=== PATIENT | female | born 1975 | race Hispanic/Latino ===

== ENCOUNTER 2018-06-29 16:08 | Inpatient (IN) | payer BC, MEDICARE ==
--- NOTE | 2018-06-29 16:55 | ED PDOC ---
Arrival/HPI - General Chief Complaint: Psychiatric Evaluation - History of Present Illness Narrative History of Present Illness (Text): 42 y/o F p/w request to be admitted psychiatrically to "get her head straight." Patient states she has been picking at herself. States takes uses crack. Denies fever, chills, chest pain, dyspnea, suicidal ideation, homicidal ideation, hallucinations. Past Medical History - Endocrine/Metabolic Hx Hyperthyroidism: Yes - Psychiatric Hx Bipolar Disorder: Yes Hx Depression: Yes Hx Post Traumatic Stress Disorder: Yes Hx Substance Use: Yes Other/Comment: OCD - Anesthesia Hx Anesthesia: Yes Hx Anesthesia Reactions: No Hx Malignant Hyperthermia: No Family/Social History Family/Social History: Unknown Family HX Smoking Status: Heavy Smoker > 10 Cigarettes Daily Hx Alcohol Use: Yes Frequency of alcohol use: Socially Hx Substance Use: Yes Substance used: crack daily Allergies/Home Meds Allergies/Adverse Reactions: Allergies No Known Allergies Allergy (Verified 06/29/18 16:27) Review of Systems - Review of Systems Constitutional: absent: Fevers Respiratory: absent: SOB Cardiovascular: absent: Chest Pain Physical Exam - Physical Exam Narrative Physical Exam (Text): Constitutional: No acute distress. Head: Atraumatic. Eyes: PERRL. ENT: Moist mucous membranes. Neck: Supple. Cardiovascular: Regular rate. Chest: No tenderness. Respiratory: Clear to auscultation bilaterally. GI: Soft. Nontender. Nondistended. Back: No CVA tenderness. Musculoskeletal: No tenderness or swelling of extremities. Skin: Excoriations/abrasions to bilateral arms and face. Laceration to L hand 2nd digit which patient states occurred yesterday, edges aligned. Neurologic: Alert, no focal deficit. Vital Signs Temp Pulse Resp BP Pulse Ox 06/29/18 16:09 98 F 87 18 109/73 98 Medical Decision Making ED Course and Treatment: Dermabond applied to laceration to reinforce already approximated edges. Labs drawn. Kaitlyn Powers accepts patient to Psychiatry. NSR 80 bpm, no ST elevations. Normal axis. CXR no acute disease. - RAD Interpretation Radiology Orders: 06/29/18 16:35 CHEST PORTABLE [RAD] Stat Disposition/Present on Arrival - Present on Arrival Any Indicators Present on Arrival: No History of DVT/PE: No History of Uncontrolled Diabetes: No Urinary Catheter: No History of Decub. Ulcer: No History Surgical Site Infection Following: None - Disposition Have Diagnosis and Disposition been Completed?: Yes Diagnosis: Bipolar disorder Disposition: HOSPITALIZED Disposition Time: 18:45 Patient Plan: Admission Condition: FAIR
[2018-06-29 17:07] LABS: ALB/GLOB RATIO 1.3 (1.1-1.8); ALBUMIN 4.1 g/dL (3.0-4.8); ALT/SGPT 28 U/L (7-56); AST/SGOT 22 U/L (14-36); BLOOD UREA NITROGEN 16 mg/dL (7-21); GFR NON-AFRICAN AMERICAN > 60
[2018-06-29 17:10] LABS: BASO # 0.07 K/mm3 (0.0-2.0); BASO % 0.6 % (0.0-3.0); EOS # 0.1 (0.0-0.7); EOS % 0.5 % (1.5-5.0); GRAN # 7.37 (1.4-6.5); HEMOGLOBIN 12.8 g/dL (12.0-16.0); LYMPH # 2.7 (1.2-3.4); LYMPH % 24.4 % (22.0-35.0); MEAN CELL VOLUME 90.6 fl (80.0-105.0); MEAN CORPUSCULAR HEMOGLOBIN 29.5 pg (25.0-35.0); MEAN CORPUSCULAR HGB CONC 32.6 g/dl (31.0-37.0); MEAN PLATELET VOLUME 8.6 fl (7.0-11.0); MONO # 0.8 (0.1-0.6); MONO % 7.5 % (1.0-6.0); RBC 4.34 10^6/uL (3.5-6.1); RED CELL DISTRIBUTION WIDTH 17.1 % (11.5-14.5)
[2018-06-29 17:25] LABS: ACETAMINOPHEN < 10.0 ug/ml (10.0-20.0); SALICYLATE < 1 mg/dL (2.0-20.0)
[2018-06-29 17:36] LABS: URINE BILIRUBIN NEGATIVE (NEGATIVE); URINE BLOOD TRACE-INTACT (NEGATIVE); URINE GLUCOSE (UA) NEGATIVE (NEGATIVE); URINE LEUKOCYTE ESTERASE NEGATIVE Leu/uL (NEGATIVE); URINE PROTEIN TRACE mg/dL (<30 mg/dL); URINE UROBILINOGEN 0.2 E.U./dL (<1 E.U./dL)
[2018-06-29 17:37] LABS: URINE APPEARANCE CLEAR (CLEAR); URINE COLOR YELLOW (YELLOW)
[2018-06-29 17:42] LABS: HCG,QUALITATIVE URINE NEGATIVE (NEGATIVE)
--- NOTE | 2018-06-29 17:54 | RAD ---
Date of service: 06/29/2018 HISTORY: psych clearance COMPARISON: No prior. FINDINGS: LUNGS: No active pulmonary disease. PLEURA: No significant pleural effusion identified, no pneumothorax apparent. CARDIOVASCULAR: No atherosclerotic calcification present Normal. OSSEOUS STRUCTURES: No significant abnormalities. VISUALIZED UPPER ABDOMEN: Normal. OTHER FINDINGS: None. IMPRESSION: No active disease.
[2018-06-29 17:56] LABS: URINE CALCIUM OXALATE CRYSTALS MOD /hpf; URINE WBC 0 - 2 /hpf (0-6)
[2018-06-29 17:59] LABS: BARBITURATES, UR NEGATIVE (NEGATIVE); PHENCYCLIDINE, UR NEGATIVE (NEGATIVE)
[2018-06-29 18:07] LABS: BENZODIAZEPINES, UR POSITIVE (NEGATIVE); OPIATES, UR POSITIVE (NEGATIVE)
--- NOTE | 2018-06-29 19:19 | CARD ---
APPROVED REPORT Date of service: 06/29/2018 EKG Measurement Heart [id number] <Conclusion> Normal sinus rhythm Normal Electrocardiogram
[2018-06-29] MEDS ORDERED: Oxycodone/Acetaminophen 10/325 mg Tab PO STA (21:36)
[2018-06-29] MEDS: Oxycodone/Acetaminophen 10/325 mg Tab PO SCH (22:22)
--- NOTE | 2018-06-30 00:21 | PCM.BM ---
<Leny Langford - Last Filed: 06/30/18 00:20> Treatment Plan Problems - Problems identified on initial assessmt Anxiety related tosubstance abuse Date Initiated: 06/29/18 Time Initiated: 20:00 Assessment reference: NA Status: Active <Rosendo Puentes - Last Filed: 06/30/18 11:44> - Diagnosis (1) Depression Status: Acute Interventions: 06/30/18 11:45 group, milieu and supportive tx * trazodone 400 mg HS for depression and insomnia * Xanax 2 mg po bid for anxiety * Ambien 10 mg HS prn insomnia * Topamax 100 mg po TID * Consider ECT treatment (2) Anxiety Status: Acute Interventions: 06/30/18 11:45 group, milieu and supportive tx * trazodone 400 mg HS for depression and insomnia * Xanax 2 mg po bid for anxiety * Ambien 10 mg HS prn insomnia * Topamax 100 mg po TID * Consider ECT treatment (3) Crack cocaine use Status: Acute Interventions: group, milieu and supportive tx trazodone 400 mg HS for depression and insomnia Xanax 2 mg po bid for anxiety Ambien 10 mg HS prn insomnia Topamax 100 mg po TID 06/30/18 11:45 <India Conley - Last Filed: 07/02/18 13:48> Family Contact Family involvement: Family/SO is involved Family contact: Patient agrees to contact <Jarad Burch - Last Filed: 07/09/18 12:40>
[2018-06-30] MEDS: Pantoprazole 40 mg EC Tab PO SCH (09:26)
[2018-06-30] MEDS: TRINTELLIX PO SCH (09:27)
[2018-06-30] MEDS: Petrolatum-Mineral Oil Oint (100gm) TOP SCH ×3 (09:34→20:53)
[2018-06-30] MEDS: Oxycodone/Acetaminophen 10/325 mg Tab PO SCH ×3 (09:42→17:51)
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
[2018-06-30] MEDS ORDERED: Potassium Chloride 20 mEq ER Tab PO ONE (18:20)
[2018-06-30] MEDS ORDERED: Oxycodone/Acetaminophen 10/325 mg Tab PO ONE (20:31)
[2018-07-01] MEDS: Petrolatum-Mineral Oil Oint (100gm) TOP SCH ×4 (02:54→21:27)
[2018-07-01 06:52] LABS: BLOOD UREA NITROGEN 14 mg/dL (7-21); CALCIUM 8.3 mg/dL (8.4-10.5); GFR NON-AFRICAN AMERICAN > 60
[2018-07-01] MEDS: Pantoprazole 40 mg EC Tab PO SCH (08:56)
[2018-07-01] MEDS: Oxycodone/Acetaminophen 10/325 mg Tab PO PRN ×3 (08:57→21:26)
[2018-07-01] MEDS: TRINTELLIX PO SCH (08:58)
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
--- NOTE | 2018-07-01 09:24 | PN ---
DATE: 07/01/2018 SUBJECTIVE: The patient is in Behavioral Care Unit, [facility] in [place] in room 513, bed one. The patient was admitted yesterday with depression and substance abuse. The patient has disability due to depression. The patient denies past history of any surgery and she has no medical history as far as hypertension or diabetes. She does have history of herpes type 2, she takes Valtrex for that. She also has some impressions of this, it is all superficial. The patient takes Topamax three times a day, and the patient is also on trazodone 400 mg at night time, 10 mg of Ambien at night time. The patient is also on Zanaflex 4 mg p.o. three times a day. The patient is also on Trintellix 20 mg daily, Xanax 2 mg p.o. twice daily at home and pantoprazole 40 mg daily. She is awake this morning. She happens to be waking up from sleep, she is tired looking. The face shows the abrasions on the nose and the cheek and the chin area. PHYSICAL EXAMINATION: VITAL SIGNS: The pulse is 67, blood pressure 100/69. HEENT: The patient's head is normocephalic. NECK: The thyroid is not enlarged clinically, the patient has been investigated for hyperthyroidism. LUNGS: Clear. HEART: Normal sinus rhythm. S1 and S2 present. ABDOMEN: Soft. Liver and spleen not palpable. CENTRAL NERVOUS SYSTEM: No focal deficit. LABORATORY DATA: The patient's CBC 11,000, the patient's differential is not showing any shift to the left. The patient's chemistry, the sodium is 139. Renal functions are normal. The patient's TSH is 1.07, it falls within range. The T4 level has been done, but those are not available. DIAGNOSTIC DATA: The EKG, the patient has normal sinus rhythm and has a normal electrocardiogram. The patient is still depressed. She has medical condition associated with depression. The patient had withdrawal from substance abuse. Her prognosis is guarded, condition is improving slowly. Makenna Martinez MD [facility] # [id number] [facility]
[2018-07-01] MEDS: Oxycodone/Acetaminophen 10/325 mg Tab PO SCH (19:23)
[2018-07-02] MEDS: Petrolatum-Mineral Oil Oint (100gm) TOP SCH ×4 (02:00→20:17)
[2018-07-02] MEDS: Oxycodone/Acetaminophen 10/325 mg Tab PO PRN ×3 (06:44→21:12)
[2018-07-02 07:54] LABS: FREE T4 0.93 ng/dL (0.78-2.19)
[2018-07-02] MEDS: Miconazole 2% Vaginal Cream(45 gm) VG SCH (10:55)
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
[2018-07-02] MEDS: TOPAMAX 100 MG PO SCH ×2 (16:11→16:37)
[2018-07-02] MEDS: Pantoprazole 40 mg EC Tab PO SCH (16:12)
[2018-07-02] MEDS: TRINTELLIX PO SCH (16:12)
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
[2018-07-02] MEDS ORDERED: TRINTELLIX 20 MG PO SCH (16:51)
[2018-07-02] MEDS: Divalproex 250 mg DR (BID formulation) PO SCH (21:08)
[2018-07-03] MEDS: Petrolatum-Mineral Oil Oint (100gm) TOP SCH ×4 (02:00→20:39)
[2018-07-03] MEDS: Oxycodone/Acetaminophen 10/325 mg Tab PO PRN ×3 (06:20→17:43)
[2018-07-03] MEDS ORDERED: [UNRECOGNIZED DRUG - OTHER] PO SCH (08:00)
[2018-07-03] MEDS ORDERED: Magnesium Hydroxide Susp 30 ml UD PO PRN (08:02)
[2018-07-03] MEDS: Pantoprazole 40 mg EC Tab PO SCH (08:07)
[2018-07-03] MEDS: Fluticasone Nasal 50 mcg/Spray NS SCH (08:08)
[2018-07-03] MEDS: Miconazole 2% Vaginal Cream(45 gm) VG SCH (08:09)
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
[2018-07-03] MEDS: Divalproex 250 mg DR (BID formulation) PO SCH (09:55)
[2018-07-03] MEDS ORDERED: Magnesium Citrate Oral SOL (300 ml) PO ONE (14:00)
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
--- NOTE | 2018-07-03 23:53 | CON ---
DATE: 07/03/2018 LOCATION: Room 519, Psychiatry. HISTORY OF PRESENT ILLNESS: This is a 42-year-old female with an apparent history of hyperthyroidism, currently on no medications at this time, presenting here with major depressive disorder and undergoing close psychiatric evaluation and management and is being referred now for endocrine evaluation and management. PAST MEDICAL HISTORY: As mentioned above, history of generalized anxiety and major depressive disorder with underlying bipolar disorder, currently on psychotropic medications at this time. She has had multiple and frequent hospital readmissions for major depressive disorder and even suicidal ideations. There is also a significant history of polysubstance abuse as noted. History of posttraumatic stress disorder and has had a very turbulent emotionally driven childhood and early adult years. History of apparent hyperthyroidism but has not been on any kind of medications for the aforementioned as noted. FAMILY HISTORY: Positive for hypertension and heart disease. SOCIAL HISTORY: Admits to polysubstance abuse with chronic alcoholism and nicotine dependence till the present time. She had previously attended AA meetings and also drug rehabilitation centers. Also recent use of crack and cocaine and even recreational marijuana use. REVIEW OF SYSTEMS: Admits to generalized body weakness with easy fatigability, tiredness and marked insomnia with disrupted sleep patterns. Admits to episodic bouts of dizziness and lightheadedness. No chest pains, palpitations or PNDs. Her oral intake has been variable with occasional dyspepsia and vague upper abdominal pains. No recent alterations of bowel and/or urinary patterns. PHYSICAL EXAMINATION GENERAL: An average built female in no apparent distress. VITAL SIGNS: Blood pressure of 140/80, pulse of 70 beats per minute and regular, temperature 98, respirations 20, height is 5 feet 6 inches, weight is 131 pounds. HEENT: Head is normocephalic. Eyes anicteric with pink conjunctivae. Funduscopy not possible at this time. Ears, nose and throat otherwise normal. NECK: Supple. Thyroid gland is normal size. No carotid bruits or cervical adenopathy. CARDIOPULMONARY: Some adynamic precordium. S1, S2 is rapid and regular. LUNGS: Clear to auscultation. ABDOMEN: Flat and soft with positive bowel sounds. EXTREMITIES: No peripheral edema. Pulses are +2 bilaterally. LABORATORY DATA: Her chemistries showed a BUN of 14, sodium 139, potassium 3.8, chloride 112, CO2 of 23, glucose 88 and creatinine 0.8. Her free T4 is 0.93 with a TSH of 1.93. ASSESSMENT: This is a 42-year-old female who remains clinically and biochemically euthyroid at this time with an apparent history of hyperthyroidism and currently on no medications at this time. She also has significant bipolar disorder with multiple admissions for generalized anxiety and major depressive disorder, currently on psychotropic medications. There is also a significant history of polysubstance abuse as mentioned above. PLAN OF MANAGEMENT: We will obtain a comprehensive thyroid hormonal profile to include a total T4 or thyroxine level together with a free T4 and TSH value. We will also add a thyroid peroxidase antibody and a thyroid stimulating immunoglobulin which will confirm and/or indicate the presence of underlying thyroid autoimmunity. At this time, there is no indication for any kind of medical therapy for either hyper or hypothyroidism considering that her TSH values are normal as noted. We will follow and advise accordingly. Ewa Weathers MD
[2018-07-04] MEDS: Petrolatum-Mineral Oil Oint (100gm) TOP SCH ×4 (03:10→23:13)
[2018-07-04] MEDS: Oxycodone/Acetaminophen 10/325 mg Tab PO PRN ×3 (07:05→19:14)
[2018-07-04 08:05] LABS: ALB/GLOB RATIO 1.2 (1.1-1.8); ALBUMIN 3.7 g/dL (3.0-4.8); ALT/SGPT 22 U/L (7-56); AST/SGOT 20 U/L (14-36); BLOOD UREA NITROGEN 19 mg/dL (7-21); CALCIUM 8.8 mg/dL (8.4-10.5); GFR NON-AFRICAN AMERICAN > 60
[2018-07-04 08:09] LABS: FREE T4 0.82 ng/dL (0.78-2.19); T4 6.9 ug/dL (5.5-11.0)
[2018-07-04] MEDS ORDERED: guaiFENesin 100 mg/5 ml Syrup UD PO PRN (08:15)
[2018-07-04] MEDS: Pantoprazole 40 mg EC Tab PO SCH (08:25)
[2018-07-04] MEDS: Fluticasone Nasal 50 mcg/Spray NS SCH (08:26)
[2018-07-04] MEDS: Miconazole 2% Vaginal Cream(45 gm) VG SCH (08:27)
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
--- NOTE | 2018-07-04 13:54 | PN ---
DATE: 07/04/2018 SUBJECTIVE: The patient is in [facility]. She is a 42-year-old white female. She is admitted with depression and she had history of substance abuse too. On admission, she was found to have some abrasions of her face, lip and the cheek area. The patient has lymph node in the submandibular area. PHYSICAL EXAMINATION: GENERAL: The patient seemed to be more alert and complains of constipation. VITAL SIGNS: The patient's pulse is 76, blood pressure 100/70 and respirations are 20. LUNGS: Clear. HEART: Normal sinus rhythm. S1 and S2, present. ABDOMEN: Soft . Liver and spleen are not palpable. CENTRAL NERVOUS SYSTEM: The patient is conscious, rational, and oriented. Cranial nerves are intact. The patient has no difficulty in ambulating. LABORATORY DATA: The patient's blood work, the CBC is within normal range. The patient's chemistry; free T4 is 0.82 and thyroxine T4 total is 6.9. TSH is 1.93. She is euthyroid at this stage on chemical studies. Renal functions and liver functions are within normal range. MEDICATIONS: The patient complains of chronic cough, we will give the patient Robitussin every 6 hours p.r.n. for cough. Continue all the medications. The patient's medicines are listed as Ambien for sleep, Desyrel for depression. The patient is on doxycycline for the infection of the face and chronic cough. The patient is on Effexor. Flonase for nasal allergy and the patient gets Milk of Magnesia for constipation and Percocet for pain, pantoprazole for reflux esophagitis and gastritis, 25 mg of atenolol that is given for blood pressure systolic over 130. We will follow up. Her condition is improving; she might be subjected to ECT treatment on Monday. In the meantime, the patient is continuing with the current management and she seemed to be improving. Makenna Martinez MD [employer]
--- NOTE | 2018-07-04 18:13 | PN ---
DATE: 07/04/2018 ENDOCRINOLOGY FOLLOWUP NOTE LOCATION: In room 519, Psychiatry. SUBJECTIVE: This is a 42-year-old female with recent admission to the psychiatric unit because of generalized anxiety and major depression and is being followed closely now also for metabolic management. She remains clinically and biochemically euthyroid at this time. The repeat chemistry showed a BUN of 19, sodium 139, potassium 4.1, chloride 109, CO2 of 25, glucose 94 and creatinine 0.8. Her thyroid levels today showed a total T4 of 6.9 mcg/dL with a TSH of 1.22 and a free T4 of 0.82 indicative of normal thyroid studies and euthyroidism. So, there is no indication at this time for any kind of thyroid pharmacotherapy patient is clinically and biochemically euthyroid as noted. We are waiting the results of the thyroid antibodies, which will confirm and/or indicate the presence of underlying thyroid autoimmunity. We will obtain serial chemistries and supplement accordingly as needed. We will follow. Ewa Weathers MD
[2018-07-05] MEDS: Petrolatum-Mineral Oil Oint (100gm) TOP SCH ×4 (05:55→20:24)
[2018-07-05] MEDS: Oxycodone/Acetaminophen 10/325 mg Tab PO PRN ×3 (06:53→22:17)
[2018-07-05] MEDS: Pantoprazole 40 mg EC Tab PO SCH (08:50)
[2018-07-05] MEDS: Fluticasone Nasal 50 mcg/Spray NS SCH (08:52)
[2018-07-05] MEDS: Miconazole 2% Vaginal Cream(45 gm) VG SCH (08:55)
--- NOTE | 2018-07-05 09:28 | PCM.PYCHPN ---
Psychiatric Progress Note - Psychiatric Progress Note Patient seen today, length of contact: 35 min Problems Identified/Issues Discussed: History of Present Illness and Precipitating Events 06/30/18: Patient is a single 42-year-old female with a psychiatric history of Depression and anxiety (PTSD, NEMO, Panic symptoms), multiple psychiatric admissions most recently 2012 in [place] s/p overdose on Xanax requiring intubation, outpatient treatment with Dr. Ammon Candelaria x16 years, compliant with medications trazodone 400 mg HS, Xanax 2 mg po bid, Ambien 10 mg HS prn, Topamax 100 mg po TID who presented to the ER on 06/29/18 requesting psychiatric stabilization s/p relapse on crack a few months ago as well as occasional MJA and alcohol use. I reviewed ER notes as well as unit staff notes and met with patient at bedside. Patient presents as tired, unkempt and malnourished with scabs in various stages of healing all on her face. Hair appears unwashed and uncombed. She is well- oriented to month, year location and circumstances. Patient has some difficulty expressing her current needs at this time though her spontaneity and fluency are not impaired. She indicates that she is "tired and needs to rest to get her thoughts in order". She made a similar comment to the ER clinician "I need to get my head straight". Patient reports a history of panic symptoms with agoraphobia, depression and NEMO symptoms. She feels that she was functioning fairly well until she relapsed on crack a few months ago. Patient has been smoking crack almost daily for the last couple of months and relapsed after 7 years of sobriety. Patient occasionally also drinks and smokes marijuana but denies excessive use. She cannot remember her last use. Patient denies any direct precipitants to her recent relapse however does acknowledge sleeping with her roommate/best friend Palomo for the first time during their 18 year friendship a few months ago. She indicates that she doesnt know where the relationship is heading. Patient feels out of control and has been picking at her face, something she only does when under the influence of crack. Patient presently denies depression or hopelessness. Overall patient appeared fatigued, disinterested and mildly bored during my questioning. Patient requires prompting for further elaboration of responses and she explains that she is tired from her drug use. Patient denies any perceptual disturbance including hallucinations or paranoia. Delusions are not elicit it during the course of our interview. Regarding her current medication regimen she feels that it has been very beneficial. Patient expresses her preference to continue with the medications prescribed by Dr. Candelaria. PSYCHIATRIC HISTORY Patient has been hospitalized numerous times since the age of 11. Her most recent admission was in [place], [place], 2012 after an overdose of Xanax in 2012 which required intubation in the ICU. Patient reports this overdose was unintentional and due to a severe panic attack. Prior to that she was hospitalized at [facility]. Patient reports an intentional suicide attempt as a teenager. She overdosed on cold medicine. She was not hospitalized. Patient has been in numerous different programs, including rehabs and AA dating back to her teens. Patient is in outpatient treatment with Dr. Ammon Candelaria x16 years in [place]. She is reportedly compliant with medications trazodone 400 mg HS, Xanax 2 mg po bid, Ambien 10 mg HS prn, Topamax 100 mg po TID SOCIAL HISTORY Born and raised in [place]. Single. Lives with her roommate/best friend "Palomo Mckinnon". Unemployed and on disability. Patient graduated with an engineering degree from [employer]. Indicates that she is 4-5 credits shy from Masters degress in Special Education. Patient has a history of polysubstance abuse with multiple rehabs and AA attendance. She has tried MJA, crack, cocaine, alcohol. She tried heroin once "not a big deal". Patient reports 7 years of sobriety prior to relapse on crack x few months ago. Infrequently uses MJA and alcohol. She also smokes tobacco daily. PROGRESS NOTE 07/05/18 I reviewed floor notes and met with patient in the dayroom today. Patient is getting better. She appears healthier, more alert and nourished. Her facial scabs are healing well. She seems a little more engaged and less ambivalent about her treatment and progress though staff note that she can been entitled and manipulative at times. Thus far she is generally tolerating medication changes on the unit. She is trying to reduce her dependency on xanax and only took 3 doses yesterday. She felt very "jittery" and "restless" as a result. Patient also feels initiation of effexor may be activating. Patient's affect remains constricted but more reactive and related. She was seen socializing in the dayroom this morning. Her grooming is also a little better. Sleep is up and down. Patient denies any perceptual disturbance including hallucinations or paranoia. Delusions were not elicited during the course of our interview. Staff notes that patient can still be labile and irritable. Nonetheless she is more visible on the unit and has been interacting in the milieu. She is looking forward to her mother and sister's visit today for Thanksgiving. Diagnostic Results: as per h/o pt was dx with bipolar disorder, at present moment mixed episode, severe no psychosis NEMO Panic Disorder with agoraphobia Crack dependency, severe MJA abuse, mild Alcohol abuse, mild r/o cluster b traits r/o contribution of SIMD Medication Change: Yes (klonopin 0.25 mg po bid ) Medical Record Reviewed: Yes Mental Status Examination - Cognitive Function Orientation: Person, Place, Situation Attention: WNL Concentration: Poor Association: WNL Fund of Knowledge: WNL - Mood Mood: Depressed ("I was feeling hopeless, but now I feel that ECT might be helpful"), Anxious - Affect Affect: Constricted (more related and reactive, less dismissive), Flat - Speech Speech: Appropriate - Formal Thought Process Formal Thought Process: No Impairment - Suicidal Ideation Suicidal Ideation: No - Homicidal Ideation Homicidal Ideation: No Goal/Treatment Plan - Goal/Treatment Plan Need for Continued Stay: Remain at risks for inpatient hospitalization, Severe depression anxiety, Discharge may exacerbated symptoms, Severe functional impairment Progress Toward Problem(s) and Goals/Treatment Plan: * group, milieu and supportive tx * Appreciate f/u by Dr. Martinez on 07/03/18 and 07/04/18~added robitussin for cough * Appreciate f/u by Dr. Weathers on 07/03/18 and 07/04/18 * trazodone 300 mg HS for depression and insomnia * Effexor 75 mg po daily for depression and anxiety * Xanax 1 mg po qid and vistaril 50 mg po q8 prn for anxiety. Added klonopin 0.25 mg po bid today to mitigate activation by effexor, patient knows this is temporary. * Ambien 10 mg HS prn insomnia * ECT treatment next week * Vitals reviewed and noted below: Selected Entries 07/04/18 07/04/18 07:39 16:00 Temperature 98.5 F Pulse Rate 76 79 Respiratory 20 Rate Blood Pressure 96/70 L 106/74 * New floor labs noted below: Laboratory Results - last 24 hr 07/04/18 07/04/18 07:25 07:25 Sodium 139 Potassium 4.1 Chloride 109 H Carbon Dioxide 25 Anion Gap 9 L BUN 19 Creatinine 0.8 Est GFR ( Amer) > 60 Est GFR (Non-Af Amer) > 60 Random Glucose 94 Calcium 8.8 Total Bilirubin 0.1 L AST 20 ALT 22 Alkaline Phosphatase 76 Total Protein 6.9 Albumin 3.7 Globulin 3.2 Albumin/Globulin Ratio 1.2 Free T4 0.82 Thyroxine (T4) 6.9 TSH 3rd Generation 1.22 Laboratory Results - last 24 hr 07/01/18 06:00 Sodium 139 Potassium 3.8 Chloride 112 H Carbon Dioxide 23 Anion Gap 8 L BUN 14 Creatinine 0.8 Est GFR ( Amer) > 60 Est GFR (Non-Af Amer) > 60 Random Glucose 88 Calcium 8.3 L ER LABS AND STUDIES Please refer to results from patient's physical exam and ROS in [facility] ER report dated 06/29/18 NSR 80 bpm, no ST elevations. Normal axis. CXR no acute disease Laboratory Tests 06/29/18 06/29/18 06/29/18 16:50 16:50 16:50 WBC 11.0 RBC 4.34 Hgb 12.8 Hct 39.3 MCV 90.6 MCH 29.5 MCHC 32.6 RDW 17.1 H Plt Count 408 MPV 8.6 Gran % 67.0 Lymph % (Auto) 24.4 Sanders % (Auto) 7.5 H Eos % (Auto) 0.5 L Baso % (Auto) 0.6 Gran # 7.37 H Lymph # (Auto) 2.7 Sanders # (Auto) 0.8 H Eos # (Auto) 0.1 Baso # (Auto) 0.07 Sodium 142 Potassium 3.4 L Chloride 109 H Carbon Dioxide 23 Anion Gap 13 BUN 16 Creatinine 0.9 Est GFR ( Amer) > 60 Est GFR (Non-Af Amer) > 60 Random Glucose 89 Calcium 9.0 Magnesium 2.1 Total Bilirubin 0.3 AST 22 ALT 28 Alkaline Phosphatase 64 Total Protein 7.4 Albumin 4.1 Globulin 3.3 Albumin/Globulin Ratio 1.3 TSH 3rd Generation Urine Color Urine Appearance Urine pH Ur Specific [place] Urine Protein Urine Glucose (UA) Urine Ketones Urine Blood Urine Nitrate Urine Bilirubin Urine Urobilinogen Ur Leukocyte Esterase Urine RBC Urine WBC Ur Epithelial Cells Calcium Oxalate Crystal Urine Other Urine HCG, Qual Salicylates < 1 L Urine Opiates Screen Urine Methadone Screen Acetaminophen < 10.0 L Ur Barbiturates Screen Ur Phencyclidine Scrn Ur Amphetamines Screen U Benzodiazepines Scrn U Oth Cocaine Metabols U Cannabinoids Screen Alcohol, Quantitative 06/29/18 06/29/18 06/29/18 16:50 17:30 17:30 WBC RBC Hgb Hct MCV MCH MCHC RDW Plt Count MPV Gran % Lymph % (Auto) Sanders % (Auto) Eos % (Auto) Baso % (Auto) Gran # Lymph # (Auto) Sanders # (Auto) Eos # (Auto) Baso # (Auto) Sodium Potassium Chloride Carbon Dioxide Anion Gap BUN Creatinine Est GFR ( Amer) Est GFR (Non-Af Amer) Random Glucose Calcium Magnesium Total Bilirubin AST ALT Alkaline Phosphatase Total Protein Albumin Globulin Albumin/Globulin Ratio TSH 3rd Generation 1.07 Urine Color Yellow Urine Appearance Clear Urine pH 6.0 Ur Specific [place] >= 1.030 Urine Protein Trace H Urine Glucose (UA) Negative Urine Ketones Negative Urine Blood Trace-intact H Urine Nitrate Negative Urine Bilirubin Negative Urine Urobilinogen 0.2 Ur Leukocyte Esterase Negative Urine RBC 2 - 5 Urine WBC 0 - 2 Ur Epithelial Cells 3 - 4 Calcium Oxalate Crystal Mod Urine Other Mucus Urine HCG, Qual Negative Salicylates Urine Opiates Screen Positive H Urine Methadone Screen Negative Acetaminophen Ur Barbiturates Screen Negative Ur Phencyclidine Scrn Negative Ur Amphetamines Screen Negative U Benzodiazepines Scrn Positive H U Oth Cocaine Metabols Positive H U Cannabinoids Screen Negative Alcohol, Quantitative < 10 Estimated Date of D/C: 07/13/18
--- NOTE | 2018-07-05 21:34 | CP.PCM.PN ---
Subjective - Date & Time of Evaluation Date of Evaluation: 07/05/18 Time of Evaluation: 08:00 - Subjective Subjective: Patient is admitted with depression, anxiety, and substance abuse problems. Objective - Vital Signs/Intake and Output Vital Signs (last 24 hours): Temp Pulse Resp BP Pulse Ox 98.0 F 82 20 91/55 L 98 07/05/18 07:14 07/05/18 16:51 07/05/18 07:14 07/05/18 16:51 06/29/18 19:03 - Medications Medications: Current Medications Acetaminophen (Tylenol 325mg Tab) 650 mg PO Q4H PRN PRN Reason: Pain, moderate (4-7) Last Admin: 07/05/18 07:26 Dose: 650 mg Alprazolam (Xanax) 1 mg PO QID PRN; Protocol PRN Reason: Anxiety Stop: 07/08/18 16:16 Last Admin: 07/05/18 20:21 Dose: 1 mg Atenolol (Tenormin) 25 mg PO BID [facility] Last Admin: 07/05/18 16:51 Dose: Not Given Clonazepam (Klonopin) 0.25 mg PO BID [facility]; Protocol Last Admin: 07/05/18 16:51 Dose: 0.25 mg Docusate Sodium (Colace) 100 mg PO BID [facility] Last Admin: 07/05/18 16:52 Dose: 100 mg Fluticasone Propionate (Flonase) 1 actuation NS DAILY [facility] Last Admin: 07/05/18 08:52 Dose: 1 applic Guaifenesin (Robitussin) 100 mg PO Q4H PRN PRN Reason: Cough Last Admin: 07/04/18 12:03 Dose: 100 mg Hydroxyzine Pamoate (Vistaril) 50 mg PO Q8 PRN; Protocol PRN Reason: Anxiety Last Admin: 07/04/18 16:48 Dose: 50 mg Magnesium Hydroxide (Milk Of Magnesia) 30 ml PO DAILY PRN PRN Reason: Constipation Last Admin: 07/03/18 09:52 Dose: 30 ml Miconazole Nitrate (Monistat 7 Vaginal Cream) 0 ea VG DAILY [facility] Last Admin: 07/05/18 08:55 Dose: Not Given Multi-Ingredient Ointment (Hydrophor Oint) 1 gm TOP Q6H [facility] Last Admin: 07/05/18 20:24 Dose: Not Given Oxycodone/Acetaminophen (Percocet 10/325 Mg Tab) 1 tab PO TID PRN PRN Reason: Pain, severe (8-10) Last Admin: 07/05/18 15:15 Dose: 1 tab Pantoprazole Sodium (Protonix Ec Tab) 40 mg PO DAILY [facility] Last Admin: 07/05/18 08:50 Dose: 40 mg Tizanidine HCl (Zanaflex) 4 mg PO TID PRN PRN Reason: Muscle spasm Last Admin: 07/05/18 13:48 Dose: 4 mg Trazodone HCl (Desyrel) 300 mg PO HS [facility] Last Admin: 07/04/18 21:04 Dose: 300 mg Venlafaxine HCl (Effexor) 75 mg PO DAILY [facility] Last Admin: 07/05/18 08:51 Dose: 75 mg Zolpidem Tartrate (Ambien) 10 mg PO HS PRN; Protocol PRN Reason: Insomnia Last Admin: 07/04/18 22:31 Dose: 10 mg - Labs Labs: 06/29/18 16:50 07/04/18 07:25 - Constitutional Appears: No Acute Distress - Head Exam Head Exam: ATRAUMATIC, NORMOCEPHALIC - Respiratory Exam Respiratory Exam: Clear to Ausculation Bilateral, NORMAL BREATHING PATTERN - Cardiovascular Exam Cardiovascular Exam: REGULAR RHYTHM, +S1, +S2 - Extremities Exam Extremities Exam: Normal Inspection Assessment and Plan - Assessment and Plan (Free Text) Assessment: Substance abuse Anxiety Depression Cough Infected skin abrasions Constipation Plan: continue colace and milk of magnesia for constipation. continue Robitussin as needed for cough TSH, and free T4 are within normal limits
[2018-07-06] MEDS: Petrolatum-Mineral Oil Oint (100gm) TOP SCH ×4 (03:44→22:50)
[2018-07-06] MEDS: Oxycodone/Acetaminophen 10/325 mg Tab PO PRN ×3 (07:07→20:11)
[2018-07-06] MEDS: Fluticasone Nasal 50 mcg/Spray NS SCH (08:59)
[2018-07-06] MEDS: Pantoprazole 40 mg EC Tab PO SCH (08:59)
[2018-07-06] MEDS: Miconazole 2% Vaginal Cream(45 gm) VG SCH (09:04)
--- NOTE | 2018-07-06 09:22 | CP.PCM.PN ---
Subjective - Date & Time of Evaluation Date of Evaluation: 07/06/18 Time of Evaluation: 08:00 - Subjective Subjective: Patient seen this morning in the behavioral care unit. She is complaining of dry crusty secretions in her nose, which she is unable to remove. Objective - Vital Signs/Intake and Output Vital Signs (last 24 hours): Temp Pulse Resp BP Pulse Ox 98.0 F 79 20 104/73 98 07/06/18 07:37 07/06/18 07:37 07/06/18 07:37 07/06/18 07:37 06/29/18 19:03 - Medications Medications: Current Medications Acetaminophen (Tylenol 325mg Tab) 650 mg PO Q4H PRN PRN Reason: Pain, moderate (4-7) Last Admin: 07/05/18 07:26 Dose: 650 mg Alprazolam (Xanax) 1 mg PO QID PRN; Protocol PRN Reason: Anxiety Stop: 07/08/18 16:16 Last Admin: 07/06/18 09:04 Dose: 1 mg Atenolol (Tenormin) 25 mg PO BID [facility] Last Admin: 07/06/18 08:59 Dose: 25 mg Clonazepam (Klonopin) 0.25 mg PO BID [facility]; Protocol Last Admin: 07/06/18 09:05 Dose: Not Given Docusate Sodium (Colace) 100 mg PO BID [facility] Last Admin: 07/06/18 09:03 Dose: 100 mg Fluticasone Propionate (Flonase) 1 actuation NS DAILY [facility] Last Admin: 07/06/18 08:59 Dose: 1 applic Guaifenesin (Robitussin) 100 mg PO Q4H PRN PRN Reason: Cough Last Admin: 07/04/18 12:03 Dose: 100 mg Hydroxyzine Pamoate (Vistaril) 50 mg PO Q8 PRN; Protocol PRN Reason: Anxiety Last Admin: 07/04/18 16:48 Dose: 50 mg Magnesium Hydroxide (Milk Of Magnesia) 30 ml PO DAILY PRN PRN Reason: Constipation Last Admin: 07/03/18 09:52 Dose: 30 ml Miconazole Nitrate (Monistat 7 Vaginal Cream) 0 ea VG DAILY [facility] Last Admin: 07/06/18 09:04 Dose: Not Given Multi-Ingredient Ointment (Hydrophor Oint) 1 gm TOP Q6H [facility] Last Admin: 07/06/18 09:05 Dose: Not Given Oxycodone/Acetaminophen (Percocet 10/325 Mg Tab) 1 tab PO TID PRN PRN Reason: Pain, severe (8-10) Last Admin: 07/06/18 07:07 Dose: 1 tab Pantoprazole Sodium (Protonix Ec Tab) 40 mg PO DAILY [facility] Last Admin: 07/06/18 08:59 Dose: 40 mg Tizanidine HCl (Zanaflex) 4 mg PO TID PRN PRN Reason: Muscle spasm Last Admin: 07/06/18 00:54 Dose: 4 mg Trazodone HCl (Desyrel) 300 mg PO HS [facility] Last Admin: 07/05/18 22:16 Dose: 300 mg Venlafaxine HCl (Effexor) 75 mg PO DAILY [facility] Last Admin: 07/06/18 08:58 Dose: 75 mg Zolpidem Tartrate (Ambien) 10 mg PO HS PRN; Protocol PRN Reason: Insomnia Last Admin: 07/05/18 23:55 Dose: 10 mg - Labs Labs: 06/29/18 16:50 07/04/18 07:25 - Constitutional Appears: No Acute Distress - Head Exam Head Exam: ATRAUMATIC, NORMOCEPHALIC - Respiratory Exam Respiratory Exam: Clear to Ausculation Bilateral, NORMAL BREATHING PATTERN - Cardiovascular Exam Cardiovascular Exam: REGULAR RHYTHM, +S1, +S2 - GI/Abdominal Exam GI & Abdominal Exam: Soft, Normal Bowel Sounds. absent: Tenderness - Extremities Exam Extremities Exam: absent: Pedal Edema Assessment and Plan - Assessment and Plan (Free Text) Assessment: Patient is seen this morning and she is complaining of dry crusty secretions in her nose which she says she is unable to remove because of her loss of septum. Will consult Dr. Luo, ENT specialist. continue Colace and Milk of magnesia as needed for constipation. Skin abrasions are much improved. Patient finished course of doxycycline for infected skin. continue behavioral care treatment as per psychiatry.
--- NOTE | 2018-07-06 09:40 | PN ---
DATE: 07/05/2018 ENDOCRINOLOGY FOLLOWUP NOTE LOCATION: In room 519, Psychiatry. SUBJECTIVE: This is a 42-year-old female with major depressive disorder and currently undergoing close psychiatric evaluation and management and is also being followed closely for metabolic management. She remained clinically and biochemically euthyroid at this time. LABORATORY DATA: Her latest chemistries showed a BUN of 19, sodium 139, potassium 4.1, chloride 109, CO2 of 25, glucose 94, and creatinine 0.8. Her thyroid study showed a T4 of 6.9 with a free T4 of 0.82 and a TSH of 1.22 indicative of normal thyroid studies and biochemical evidence of euthyroidism. ASSESSMENT AND PLAN: So at this time, there is no indication for any kind of thyroid pharmacotherapy for the patient, although she had a significant history of hyperthyroidism in the past. We will await the thyroid antibodies and present the reference lab for the thyroid stimulating immunoglobulin and thyroid peroxidase antibody, which will confirm and indicate the presence of underlying thyroid autoimmunity. We will follow. Ewa Weathers MD
--- NOTE | 2018-07-06 11:00 | PCM.PYCHPN ---
Psychiatric Progress Note - Psychiatric Progress Note Patient seen today, length of contact: 35 min Problems Identified/Issues Discussed: History of Present Illness and Precipitating Events 06/30/18: Patient is a single 42-year-old female with a psychiatric history of Depression and anxiety (PTSD, NEMO, Panic symptoms), multiple psychiatric admissions most recently 2012 in [place] s/p overdose on Xanax requiring intubation, outpatient treatment with Dr. Ammon Candelaria x16 years, compliant with medications trazodone 400 mg HS, Xanax 2 mg po bid, Ambien 10 mg HS prn, Topamax 100 mg po TID who presented to the ER on 06/29/18 requesting psychiatric stabilization s/p relapse on crack a few months ago as well as occasional MJA and alcohol use. I reviewed ER notes as well as unit staff notes and met with patient at bedside. Patient presents as tired, unkempt and malnourished with scabs in various stages of healing all on her face. Hair appears unwashed and uncombed. She is well- oriented to month, year location and circumstances. Patient has some difficulty expressing her current needs at this time though her spontaneity and fluency are not impaired. She indicates that she is "tired and needs to rest to get her thoughts in order". She made a similar comment to the ER clinician "I need to get my head straight". Patient reports a history of panic symptoms with agoraphobia, depression and NEMO symptoms. She feels that she was functioning fairly well until she relapsed on crack a few months ago. Patient has been smoking crack almost daily for the last couple of months and relapsed after 7 years of sobriety. Patient occasionally also drinks and smokes marijuana but denies excessive use. She cannot remember her last use. Patient denies any direct precipitants to her recent relapse however does acknowledge sleeping with her roommate/best friend Palomo for the first time during their 18 year friendship a few months ago. She indicates that she doesnt know where the relationship is heading. Patient feels out of control and has been picking at her face, something she only does when under the influence of crack. Patient presently denies depression or hopelessness. Overall patient appeared fatigued, disinterested and mildly bored during my questioning. Patient requires prompting for further elaboration of responses and she explains that she is tired from her drug use. Patient denies any perceptual disturbance including hallucinations or paranoia. Delusions are not elicit it during the course of our interview. Regarding her current medication regimen she feels that it has been very beneficial. Patient expresses her preference to continue with the medications prescribed by Dr. Candelaria. PSYCHIATRIC HISTORY Patient has been hospitalized numerous times since the age of 11. Her most recent admission was in [place], [place], 2012 after an overdose of Xanax in 2012 which required intubation in the ICU. Patient reports this overdose was unintentional and due to a severe panic attack. Prior to that she was hospitalized at [facility] Patient reports an intentional suicide attempt as a teenager. She overdosed on cold medicine. She was not hospitalized. Patient has been in numerous different programs, including rehabs and AA dating back to her teens. Patient is in outpatient treatment with Dr. Ammon Candelaria x16 years in [place]. She is reportedly compliant with medications trazodone 400 mg HS, Xanax 2 mg po bid, Ambien 10 mg HS prn, Topamax 100 mg po TID SOCIAL HISTORY Born and raised in [place]. Single. Lives with her roommate/best friend "Palomo Mckinnon". Unemployed and on disability. Patient graduated with an engineering degree from [employer]. Indicates that she is 4-5 credits shy from Masters degress in Special Education. Patient has a history of polysubstance abuse with multiple rehabs and AA attendance. She has tried MJA, crack, cocaine, alcohol. She tried heroin once "not a big deal". Patient reports 7 years of sobriety prior to relapse on crack x few months ago. Infrequently uses MJA and alcohol. She also smokes tobacco daily. PROGRESS NOTE 07/06/18 I reviewed floor notes and met with patient in the dayroom again today. Patient is getting better. She appears healthier, more alert and nourished. Her facial scabs are healing well. She is more engaged about her treatment and progress though staff noted that she can been entitled and manipulative at times--this behavior seems to be improving and may be related to drug withdrawal. Thus far she is generally tolerating medication changes on the unit. She is trying to reduce her dependency on xanax, sleep has been more restless lately. Patient's affect remains constricted but more reactive and related. Sometimes she smiles and jokes during our meetings. She has been socializing and observed comforting other patients. Interactions seem appropriate. Patient denies any perceptual disturbance including hallucinations or paranoia. Delusions were not elicited during the course of our interview. Staff notes that patient can still be labile and irritable. Nonetheless she is more visible on the unit and has been interacting in the milieu. Diagnostic Results: as per h/o pt was dx with bipolar disorder, at present moment mixed episode, severe no psychosis NEMO Panic Disorder with agoraphobia Crack dependency, severe MJA abuse, mild Alcohol abuse, mild r/o cluster b traits r/o contribution of SIMD Medication Change: Yes (seroquel 25 mg po hs) Medical Record Reviewed: Yes Mental Status Examination - Cognitive Function Orientation: Person, Place, Situation Attention: WNL Concentration: Poor Association: WNL Fund of Knowledge: WNL - Mood Mood: Depressed ("I was feeling hopeless, but now I feel that ECT might be helpful"), Anxious - Affect Affect: Constricted (more related and reactive, less dismissive), Flat - Speech Speech: Appropriate - Formal Thought Process Formal Thought Process: No Impairment - Suicidal Ideation Suicidal Ideation: No - Homicidal Ideation Homicidal Ideation: No Goal/Treatment Plan - Goal/Treatment Plan Need for Continued Stay: Remain at risks for inpatient hospitalization, Severe depression anxiety, Discharge may exacerbated symptoms, Severe functional impairment Progress Toward Problem(s) and Goals/Treatment Plan: * group, milieu and supportive tx * Appreciate f/u by Dr. Martinez on 07/03/18 and 07/04/18~added robitussin for cough and 07/06/18~ Patient is complaining of dry crusty secretions in her nose which she says she is unable to remove because of her loss of septum. Will consult Dr. Luo, ENT specialist. * Appreciate f/u by Dr. Weathers on 07/03/18 and 07/04/18 * trazodone 300 mg HS for depression and insomnia * Effexor 75 mg po daily for depression and anxiety * Xanax 1 mg po qid and vistaril 50 mg po q8 prn for anxiety. * Ambien 10 mg HS prn insomnia * Seroquel 25 mg po HS started on 07/06/18, off label for insomnia * ECT treatment next week * Vitals reviewed and noted below: Selected Entries 07/05/18 07/05/18 07/05/18 07:14 09:02 16:00 Temperature 98.0 F Pulse Rate 71 71 82 Respiratory 20 Rate Blood Pressure 100/64 100/64 91/55 L 07/05/18 16:51 Temperature Pulse Rate 82 Respiratory Rate Blood Pressure 91/55 L * New floor labs noted below: Laboratory Results - last 24 hr 07/04/18 07/04/18 07:25 07:25 Sodium 139 Potassium 4.1 Chloride 109 H Carbon Dioxide 25 Anion Gap 9 L BUN 19 Creatinine 0.8 Est GFR ( Amer) > 60 Est GFR (Non-Af Amer) > 60 Random Glucose 94 Calcium 8.8 Total Bilirubin 0.1 L AST 20 ALT 22 Alkaline Phosphatase 76 Total Protein 6.9 Albumin 3.7 Globulin 3.2 Albumin/Globulin Ratio 1.2 Free T4 0.82 Thyroxine (T4) 6.9 TSH 3rd Generation 1.22 Laboratory Results - last 24 hr 07/01/18 06:00 Sodium 139 Potassium 3.8 Chloride 112 H Carbon Dioxide 23 Anion Gap 8 L BUN 14 Creatinine 0.8 Est GFR ( Amer) > 60 Est GFR (Non-Af Amer) > 60 Random Glucose 88 Calcium 8.3 L ER LABS AND STUDIES Please refer to results from patient's physical exam and ROS in [facility] ER report dated 06/29/18 NSR 80 bpm, no ST elevations. Normal axis. CXR no acute disease Laboratory Tests 06/29/18 06/29/18 06/29/18 16:50 16:50 16:50 WBC 11.0 RBC 4.34 Hgb 12.8 Hct 39.3 MCV 90.6 MCH 29.5 MCHC 32.6 RDW 17.1 H Plt Count 408 MPV 8.6 Gran % 67.0 Lymph % (Auto) 24.4 Holmes % (Auto) 7.5 H Eos % (Auto) 0.5 L Baso % (Auto) 0.6 Gran # 7.37 H Lymph # (Auto) 2.7 Holmes # (Auto) 0.8 H Eos # (Auto) 0.1 Baso # (Auto) 0.07 Sodium 142 Potassium 3.4 L Chloride 109 H Carbon Dioxide 23 Anion Gap 13 BUN 16 Creatinine 0.9 Est GFR ( Amer) > 60 Est GFR (Non-Af Amer) > 60 Random Glucose 89 Calcium 9.0 Magnesium 2.1 Total Bilirubin 0.3 AST 22 ALT 28 Alkaline Phosphatase 64 Total Protein 7.4 Albumin 4.1 Globulin 3.3 Albumin/Globulin Ratio 1.3 TSH 3rd Generation Urine Color Urine Appearance Urine pH Ur Specific Fred Urine Protein Urine Glucose (UA) Urine Ketones Urine Blood Urine Nitrate Urine Bilirubin Urine Urobilinogen Ur Leukocyte Esterase Urine RBC Urine WBC Ur Epithelial Cells Calcium Oxalate Crystal Urine Other Urine HCG, Qual Salicylates < 1 L Urine Opiates Screen Urine Methadone Screen Acetaminophen < 10.0 L Ur Barbiturates Screen Ur Phencyclidine Scrn Ur Amphetamines Screen U Benzodiazepines Scrn U Oth Cocaine Metabols U Cannabinoids Screen Alcohol, Quantitative 06/29/18 06/29/18 06/29/18 16:50 17:30 17:30 WBC RBC Hgb Hct MCV MCH MCHC RDW Plt Count MPV Gran % Lymph % (Auto) Holmes % (Auto) Eos % (Auto) Baso % (Auto) Gran # Lymph # (Auto) Holmes # (Auto) Eos # (Auto) Baso # (Auto) Sodium Potassium Chloride Carbon Dioxide Anion Gap BUN Creatinine Est GFR ( Amer) Est GFR (Non-Af Amer) Random Glucose Calcium Magnesium Total Bilirubin AST ALT Alkaline Phosphatase Total Protein Albumin Globulin Albumin/Globulin Ratio TSH 3rd Generation 1.07 Urine Color Yellow Urine Appearance Clear Urine pH 6.0 Ur Specific Fred >= 1.030 Urine Protein Trace H Urine Glucose (UA) Negative Urine Ketones Negative Urine Blood Trace-intact H Urine Nitrate Negative Urine Bilirubin Negative Urine Urobilinogen 0.2 Ur Leukocyte Esterase Negative Urine RBC 2 - 5 Urine WBC 0 - 2 Ur Epithelial Cells 3 - 4 Calcium Oxalate Crystal Mod Urine Other Mucus Urine HCG, Qual Negative Salicylates Urine Opiates Screen Positive H Urine Methadone Screen Negative Acetaminophen Ur Barbiturates Screen Negative Ur Phencyclidine Scrn Negative Ur Amphetamines Screen Negative U Benzodiazepines Scrn Positive H U Oth Cocaine Metabols Positive H U Cannabinoids Screen Negative Alcohol, Quantitative < 10 Estimated Date of D/C: 07/13/18
--- NOTE | 2018-07-06 11:43 | PN ---
DATE: 07/06/2018 ENDO FOLLOWUP NOTE LOCATION: Room 519. SUBJECTIVE: This is a 42-year-old female with recent major depressive disorder and behavioral disturbances, now being followed closely in the psychiatric unit and thus also been referred for possible hyperthyroidism. She remains clinically and biochemically euthyroid at this time. Her latest thyroid study showed a T4 of 6.9 mcg/dL with a free T4 of 0.82 and a TSH of 1.22. Her chemistry showed a BUN of 19, sodium 139, potassium 4.1, chloride 109, CO2 of 25, glucose 94 and creatinine 0.8. So at this time, she remains clinically and biochemically euthyroid with possible underlying autoimmune thyroiditis. There is no indication at this time for any kind of thyroid pharmacotherapy as her thyroid studies done have remained optimal and normal at this time. We will obtain serial chemistries and supplement accordingly as needed. We will also await the results of thyroid antibodies, which will confirm and/or indicate the presence of underlying thyroid autoimmunity. We will follow with you. Ewa Weathers MD
[2018-07-07] MEDS: Petrolatum-Mineral Oil Oint (100gm) TOP SCH ×4 (04:31→21:00)
[2018-07-07] MEDS: Pantoprazole 40 mg EC Tab PO SCH (08:37)
[2018-07-07] MEDS: Oxycodone/Acetaminophen 10/325 mg Tab PO PRN ×3 (08:38→22:04)
[2018-07-07] MEDS: Miconazole 2% Vaginal Cream(45 gm) VG SCH ×2 (08:39→23:33)
[2018-07-07] MEDS: Fluticasone Nasal 50 mcg/Spray NS SCH (08:44)
--- NOTE | 2018-07-07 10:29 | PCM.PYCHPN ---
Psychiatric Progress Note - Psychiatric Progress Note Patient seen today, length of contact: 35 min Problems Identified/Issues Discussed: History of Present Illness and Precipitating Events 06/30/18: Patient is a single 42-year-old female with a psychiatric history of Depression and anxiety (PTSD, NEMO, Panic symptoms), multiple psychiatric admissions most recently 2012 in [place] s/p overdose on Xanax requiring intubation, outpatient treatment with Dr. Ammon Candelaria x16 years, compliant with medications trazodone 400 mg HS, Xanax 2 mg po bid, Ambien 10 mg HS prn, Topamax 100 mg po TID who presented to the ER on 06/29/18 requesting psychiatric stabilization s/p relapse on crack a few months ago as well as occasional MJA and alcohol use. I reviewed ER notes as well as unit staff notes and met with patient at bedside. Patient presents as tired, unkempt and malnourished with scabs in various stages of healing all on her face. Hair appears unwashed and uncombed. She is well- oriented to month, year location and circumstances. Patient has some difficulty expressing her current needs at this time though her spontaneity and fluency are not impaired. She indicates that she is "tired and needs to rest to get her thoughts in order". She made a similar comment to the ER clinician "I need to get my head straight". Patient reports a history of panic symptoms with agoraphobia, depression and NEMO symptoms. She feels that she was functioning fairly well until she relapsed on crack a few months ago. Patient has been smoking crack almost daily for the last couple of months and relapsed after 7 years of sobriety. Patient occasionally also drinks and smokes marijuana but denies excessive use. She cannot remember her last use. Patient denies any direct precipitants to her recent relapse however does acknowledge sleeping with her roommate/best friend Palomo for the first time during their 18 year friendship a few months ago. She indicates that she doesnt know where the relationship is heading. Patient feels out of control and has been picking at her face, something she only does when under the influence of crack. Patient presently denies depression or hopelessness. Overall patient appeared fatigued, disinterested and mildly bored during my questioning. Patient requires prompting for further elaboration of responses and she explains that she is tired from her drug use. Patient denies any perceptual disturbance including hallucinations or paranoia. Delusions are not elicit it during the course of our interview. Regarding her current medication regimen she feels that it has been very beneficial. Patient expresses her preference to continue with the medications prescribed by Dr. Candelaria. PSYCHIATRIC HISTORY Patient has been hospitalized numerous times since the age of 11. Her most recent admission was in [place], [place], 2012 after an overdose of Xanax in 2012 which required intubation in the ICU. Patient reports this overdose was unintentional and due to a severe panic attack. Prior to that she was hospitalized at [facility]. Patient reports an intentional suicide attempt as a teenager. She overdosed on cold medicine. She was not hospitalized. Patient has been in numerous different programs, including rehabs and AA dating back to her teens. Patient is in outpatient treatment with Dr. Ammon Candelaria x16 years in [place]. She is reportedly compliant with medications trazodone 400 mg HS, Xanax 2 mg po bid, Ambien 10 mg HS prn, Topamax 100 mg po TID SOCIAL HISTORY Born and raised in [place]. Single. Lives with her roommate/best friend "Palomo Mckinnon". Unemployed and on disability. Patient graduated with an engineering degree from [employer] [place]. Indicates that she is 4-5 credits shy from Masters degress in Special Education. Patient has a history of polysubstance abuse with multiple rehabs and AA attendance. She has tried MJA, crack, cocaine, alcohol. She tried heroin once "not a big deal". Patient reports 7 years of sobriety prior to relapse on crack x few months ago. Infrequently uses MJA and alcohol. She also smokes tobacco daily. PROGRESS NOTE 07/07/18 I reviewed floor notes and met with patient in the dayroom again today. Patient's overall alertness, reactivity and engagement are improving however anxiety and lability persist. Sleep has been up and down but better since i nitiation of seroquel last night. Staff note that patient can be intrusive and entitled on the unit but her intentions seem good. She engages with and comforts another patient who needs a lot of emotional support. Sometimes patient needs reminders about boundaries but her intent is in the right place. Overall her interactions are appropriate and not bizarre/grandiose Patient appears healthier, more alert and nourished. Her facial scabs are healing well. She is more engaged about her treatment and looking forward to trying ECT for the first time this week. She is still having a lot of difficulty tapering xanax. Patient denies any perceptual disturbance including hallucinations or paranoia. Delusions were not elicited during the course of our interviews. Diagnostic Results: as per h/o pt was dx with bipolar disorder, at present moment mixed episode, severe no psychosis NEMO Panic Disorder with agoraphobia Crack dependency, severe MJA abuse, mild Alcohol abuse, mild r/o cluster b traits r/o contribution of SIMD Medication Change: Yes (seroquel increased to 50 mg po hs) Medical Record Reviewed: Yes Mental Status Examination - Cognitive Function Orientation: Person, Place, Situation Attention: WNL Concentration: Poor Association: WNL Fund of Knowledge: WNL - Mood Mood: Depressed ("I was feeling hopeless, but now I feel that ECT might be helpful"), Anxious - Affect Affect: Constricted (more related and reactive, less dismissive), Flat - Speech Speech: Appropriate - Formal Thought Process Formal Thought Process: No Impairment - Suicidal Ideation Suicidal Ideation: No - Homicidal Ideation Homicidal Ideation: No Goal/Treatment Plan - Goal/Treatment Plan Need for Continued Stay: Remain at risks for inpatient hospitalization, Severe depression anxiety, Discharge may exacerbated symptoms, Severe functional impairment Progress Toward Problem(s) and Goals/Treatment Plan: * group, milieu and supportive tx * Appreciate f/u by Dr. Martinez * 07/03/18 and 07/04/18~added robitussin for cough * 07/06/18~ Patient is complaining of dry crusty secretions in her nose which she says she is unable to remove because of her loss of septum. Will consult Dr. Luo, ENT specialist. * Appreciate f/u by Dr. Weathers on 07/03/18, 07/04/18, 07/05/18 and 07/06/18 * ~patient is clinically and biochemically euthyroid with possible underlying autoimmune thyroiditis. No indication for thyroid pharmacology. Awaiting the results of thyroid antibodies. * trazodone 300 mg HS for depression and insomnia * Effexor 75 mg po daily for depression and anxiety * Xanax 1 mg po qid and vistaril 50 mg po q8 prn for anxiety. * Ambien 10 mg HS prn insomnia * Seroquel 25 mg po HS started on 07/06/18 and increased to 50 mg po HS, off label for insomnia * ECT treatment #1 to begin 07/09/18 * Vitals reviewed and noted below: Selected Entries 07/06/18 07:37 Temperature 98.0 F Pulse Rate 79 Respiratory 20 Rate Blood Pressure 104/73 * New floor labs noted below: Laboratory Results - last 24 hr 07/04/18 07/04/18 07:25 07:25 Sodium 139 Potassium 4.1 Chloride 109 H Carbon Dioxide 25 Anion Gap 9 L BUN 19 Creatinine 0.8 Est GFR ( Amer) > 60 Est GFR (Non-Af Amer) > 60 Random Glucose 94 Calcium 8.8 Total Bilirubin 0.1 L AST 20 ALT 22 Alkaline Phosphatase 76 Total Protein 6.9 Albumin 3.7 Globulin 3.2 Albumin/Globulin Ratio 1.2 Free T4 0.82 Thyroxine (T4) 6.9 TSH 3rd Generation 1.22 Laboratory Results - last 24 hr 07/01/18 06:00 Sodium 139 Potassium 3.8 Chloride 112 H Carbon Dioxide 23 Anion Gap 8 L BUN 14 Creatinine 0.8 Est GFR ( Amer) > 60 Est GFR (Non-Af Amer) > 60 Random Glucose 88 Calcium 8.3 L ER LABS AND STUDIES Please refer to results from patient's physical exam and ROS in [facility] ER report dated 06/29/18 NSR 80 bpm, no ST elevations. Normal axis. CXR no acute disease Laboratory Tests 06/29/18 06/29/18 06/29/18 16:50 16:50 16:50 WBC 11.0 RBC 4.34 Hgb 12.8 Hct 39.3 MCV 90.6 MCH 29.5 MCHC 32.6 RDW 17.1 H Plt Count 408 MPV 8.6 Gran % 67.0 Lymph % (Auto) 24.4 Perry % (Auto) 7.5 H Eos % (Auto) 0.5 L Baso % (Auto) 0.6 Gran # 7.37 H Lymph # (Auto) 2.7 Perry # (Auto) 0.8 H Eos # (Auto) 0.1 Baso # (Auto) 0.07 Sodium 142 Potassium 3.4 L Chloride 109 H Carbon Dioxide 23 Anion Gap 13 BUN 16 Creatinine 0.9 Est GFR ( Amer) > 60 Est GFR (Non-Af Amer) > 60 Random Glucose 89 Calcium 9.0 Magnesium 2.1 Total Bilirubin 0.3 AST 22 ALT 28 Alkaline Phosphatase 64 Total Protein 7.4 Albumin 4.1 Globulin 3.3 Albumin/Globulin Ratio 1.3 TSH 3rd Generation Urine Color Urine Appearance Urine pH Ur Specific Otto Urine Protein Urine Glucose (UA) Urine Ketones Urine Blood Urine Nitrate Urine Bilirubin Urine Urobilinogen Ur Leukocyte Esterase Urine RBC Urine WBC Ur Epithelial Cells Calcium Oxalate Crystal Urine Other Urine HCG, Qual Salicylates < 1 L Urine Opiates Screen Urine Methadone Screen Acetaminophen < 10.0 L Ur Barbiturates Screen Ur Phencyclidine Scrn Ur Amphetamines Screen U Benzodiazepines Scrn U Oth Cocaine Metabols U Cannabinoids Screen Alcohol, Quantitative 06/29/18 06/29/18 06/29/18 16:50 17:30 17:30 WBC RBC Hgb Hct MCV MCH MCHC RDW Plt Count MPV Gran % Lymph % (Auto) Perry % (Auto) Eos % (Auto) Baso % (Auto) Gran # Lymph # (Auto) Perry # (Auto) Eos # (Auto) Baso # (Auto) Sodium Potassium Chloride Carbon Dioxide Anion Gap BUN Creatinine Est GFR ( Amer) Est GFR (Non-Af Amer) Random Glucose Calcium Magnesium Total Bilirubin AST ALT Alkaline Phosphatase Total Protein Albumin Globulin Albumin/Globulin Ratio TSH 3rd Generation 1.07 Urine Color Yellow Urine Appearance Clear Urine pH 6.0 Ur Specific Otto >= 1.030 Urine Protein Trace H Urine Glucose (UA) Negative Urine Ketones Negative Urine Blood Trace-intact H Urine Nitrate Negative Urine Bilirubin Negative Urine Urobilinogen 0.2 Ur Leukocyte Esterase Negative Urine RBC 2 - 5 Urine WBC 0 - 2 Ur Epithelial Cells 3 - 4 Calcium Oxalate Crystal Mod Urine Other Mucus Urine HCG, Qual Negative Salicylates Urine Opiates Screen Positive H Urine Methadone Screen Negative Acetaminophen Ur Barbiturates Screen Negative Ur Phencyclidine Scrn Negative Ur Amphetamines Screen Negative U Benzodiazepines Scrn Positive H U Oth Cocaine Metabols Positive H U Cannabinoids Screen Negative Alcohol, Quantitative < 10 Estimated Date of D/C: 07/13/18
--- NOTE | 2018-07-07 12:14 | PN ---
DATE: 07/07/2018 LOCATION: Room 519. This is a 42-year-old female with major depressive disorder and anxiety and panic state. Currently receiving closer psychiatric evaluation and management and is also being followed closely for metabolic management. Her repeat thyroid study showed a T4 of 6.9 with a TSH of 1.22 and a free T4 of 0.82. Her latest chemistry showed a BUN of 19, sodium 139, potassium 4.1, chloride 109, CO2 of 25, glucose 94, and creatinine 0.8. So at this time, we will continue the same present psychiatric management at this time. No indication for thyroid pharmacotherapy from the endocrine view point because the patient has remained clinically and biochemically euthyroid at this time. We are waiting the results of the thyroid antibodies, which will confirm and/or indicate the presence of underlying thyroid autoimmunity. We will follow. Ewa Weathers MD
--- NOTE | 2018-07-07 19:40 | CP.PCM.PN ---
Subjective - Date & Time of Evaluation Date of Evaluation: 07/07/18 Time of Evaluation: 08:00 - Subjective Subjective: Patient was complaining of constipation yesterday and received a fleets enema. Objective - Vital Signs/Intake and Output Vital Signs (last 24 hours): Temp Pulse Resp BP Pulse Ox 98.3 F 74 18 106/74 98 07/07/18 07:00 07/07/18 16:00 07/07/18 07:00 07/07/18 16:00 06/29/18 19:03 - Medications Medications: Current Medications Acetaminophen (Tylenol 325mg Tab) 650 mg PO Q4H PRN PRN Reason: Pain, moderate (4-7) Last Admin: 07/05/18 07:26 Dose: 650 mg Alprazolam (Xanax) 1 mg PO QID PRN; Protocol PRN Reason: Anxiety Stop: 07/08/18 16:16 Last Admin: 07/07/18 16:24 Dose: 1 mg Atenolol (Tenormin) 25 mg PO BID [facility] Last Admin: 07/07/18 15:01 Dose: Not Given Docusate Sodium (Colace) 100 mg PO BID [facility] Last Admin: 07/07/18 15:05 Dose: 100 mg Fluticasone Propionate (Flonase) 1 actuation NS DAILY [facility] Last Admin: 07/07/18 08:44 Dose: Not Given Guaifenesin (Robitussin) 100 mg PO Q4H PRN PRN Reason: Cough Last Admin: 07/04/18 12:03 Dose: 100 mg Hydroxyzine Pamoate (Vistaril) 50 mg PO Q8 PRN; Protocol PRN Reason: Anxiety Last Admin: 07/07/18 12:10 Dose: 50 mg Magnesium Hydroxide (Milk Of Magnesia) 30 ml PO DAILY PRN PRN Reason: Constipation Last Admin: 07/03/18 09:52 Dose: 30 ml Miconazole Nitrate (Monistat 7 Vaginal Cream) 0 ea VG DAILY [facility] Last Admin: 07/07/18 08:39 Dose: Not Given Multi-Ingredient Ointment (Hydrophor Oint) 1 gm TOP Q6H [facility] Last Admin: 07/07/18 15:01 Dose: Not Given Oxycodone/Acetaminophen (Percocet 10/325 Mg Tab) 1 tab PO TID PRN PRN Reason: Pain, severe (8-10) Last Admin: 07/07/18 15:05 Dose: 1 tab Pantoprazole Sodium (Protonix Ec Tab) 40 mg PO DAILY [facility] Last Admin: 07/07/18 08:37 Dose: 40 mg Quetiapine Fumarate (Seroquel) 50 mg PO HS [facility]; Protocol Sodium Phosphate (Fleet Enema) 135 ml RC Q8H PRN PRN Reason: Constipation Last Admin: 07/06/18 10:19 Dose: 135 ml Tizanidine HCl (Zanaflex) 4 mg PO TID PRN PRN Reason: Muscle spasm Last Admin: 07/07/18 15:05 Dose: 4 mg Trazodone HCl (Desyrel) 300 mg PO HS [facility] Last Admin: 07/06/18 21:06 Dose: 300 mg Venlafaxine HCl (Effexor) 75 mg PO DAILY [facility] Last Admin: 07/07/18 08:37 Dose: 75 mg Zolpidem Tartrate (Ambien) 10 mg PO HS PRN; Protocol PRN Reason: Insomnia Last Admin: 07/06/18 23:27 Dose: 10 mg - Labs Labs: 06/29/18 16:50 07/04/18 07:25 - Constitutional Appears: No Acute Distress - Head Exam Head Exam: ATRAUMATIC, NORMOCEPHALIC - Respiratory Exam Respiratory Exam: Clear to Ausculation Bilateral, NORMAL BREATHING PATTERN - Cardiovascular Exam Cardiovascular Exam: REGULAR RHYTHM, +S1, +S2 - GI/Abdominal Exam GI & Abdominal Exam: Soft, Normal Bowel Sounds. absent: Tenderness - Extremities Exam Extremities Exam: Normal Inspection - Neurological Exam Neurological Exam: Alert, Awake, Oriented x3 Assessment and Plan - Assessment and Plan (Free Text) Assessment: Patient is to have ECT on Monday. Will check CBC, chemistry in AM. continue colace, milk of magnesia and fleets enema as needed for constipation continue behavioral treatment as per psychiatry
[2018-07-08] MEDS: Petrolatum-Mineral Oil Oint (100gm) TOP SCH ×4 (02:34→21:38)
[2018-07-08 08:34] LABS: BASO # 0.03 K/mm3 (0.0-2.0); BASO % 0.4 % (0.0-3.0); EOS # 0.2 (0.0-0.7); GRAN # 3.77 (1.4-6.5); GRAN % 47.1 % (50.0-68.0); HEMOGLOBIN 11.2 g/dL (12.0-16.0); LYMPH # 3.3 (1.2-3.4); LYMPH % 41.4 % (22.0-35.0); MEAN CELL VOLUME 91.3 fl (80.0-105.0); MEAN CORPUSCULAR HEMOGLOBIN 28.7 pg (25.0-35.0); MEAN CORPUSCULAR HGB CONC 31.5 g/dl (31.0-37.0); MEAN PLATELET VOLUME 8.7 fl (7.0-11.0); MONO # 0.7 (0.1-0.6); MONO % 9.1 % (1.0-6.0); RBC 3.9 10^6/uL (3.5-6.1); RED CELL DISTRIBUTION WIDTH 17.1 % (11.5-14.5)
[2018-07-08 08:49] LABS: ALB/GLOB RATIO 1.2 (1.1-1.8); ALBUMIN 3.5 g/dL (3.0-4.8); ALT/SGPT 28 U/L (7-56); AST/SGOT 26 U/L (14-36); BLOOD UREA NITROGEN 18 mg/dL (7-21); CALCIUM 8.5 mg/dL (8.4-10.5); GFR NON-AFRICAN AMERICAN > 60
[2018-07-08] MEDS: Pantoprazole 40 mg EC Tab PO SCH (09:15)
[2018-07-08] MEDS: Oxycodone/Acetaminophen 10/325 mg Tab PO PRN ×3 (09:16→20:34)
--- NOTE | 2018-07-08 09:17 | PN ---
DATE: 07/08/2018 SUBJECTIVE: The patient is in [facility], Behavioral Care Unit. She is admitted with depression. She has history of substance abuse and trauma to the nose. She stated that she has the nasal septum removed, secondary to trauma. The patient has gastritis, reflux. The patient also has anxiety. The patient is seen in the room this morning. She is lying down. She had no special complaints. She is waiting for ECT tomorrow. PHYSICAL EXAMINATION: VITAL SIGNS: Her vital signs today, the patient's pulse is 65, blood pressure 100/60, respirations are 18 and O2 sat is 98% on room air. HEENT: The patient's head is normocephalic. The face, there is abrasion in the area of the face below the lip on the right side. The other abrasions have been healed. NECK: The patient's neck, the thyroid is not enlarged, no glands in the neck except there are some glands in the submandibular area secondary to the abrasion in the face. LUNGS: The patient's lungs are clear. HEART: Normal sinus rhythm. ABDOMEN: Soft. Liver and spleen not palpable. No tenderness, no masses. CENTRAL NERVOUS SYSTEM: No focal deficit. LABORATORY DATA: The patient's blood work was done on 06/29, they are within normal range. The patient is pending ECT as mentioned. We will follow up. Makenna Martinez MD [facility]
[2018-07-08] MEDS: Miconazole 2% Vaginal Cream(45 gm) VG SCH (09:22)
[2018-07-08] MEDS: Fluticasone Nasal 50 mcg/Spray NS SCH ×2 (09:24→11:48)
--- NOTE | 2018-07-08 11:16 | PCM.PYCHPN ---
Psychiatric Progress Note - Psychiatric Progress Note Patient seen today, length of contact: 35 min Patient Chief Complaint: "I cannot stand this unit, I am manic, my mind is racing, at the same time I feel groggy on increased dose of seroquel, my only hope is ECT tomorrow, everybody asking me if I am scared, but I am not, I am hopeful..." Problems Identified/Issues Discussed: Suicide/ homicide prevention, past psychiatric h/o, current psychiatric symptoms, medical problems, risk/benefits and alternatives of medications, medications compliance, coping strategies, substance abuse h/o, relapse prevention, importance of follow up with psychiatrist and therapist, discharge plan. Medical Problems: see HPI Diagnostic Results: 06/29/18 16:50 07/01/18 06:00 Lab Results 07/02/18 06:40: Free T4 0.93, TSH 3rd Generation 1.93 07/01/18 06:00: Sodium 139, Potassium 3.8, Chloride 112 H, Carbon Dioxide 23, Anion Gap 8 L, BUN 14, Creatinine 0.8, Est GFR ( Amer) > 60, Est GFR (Non-Af Amer) > 60, Random Glucose 88, Calcium 8.3 L 06/29/18 17:30: Urine Color Yellow, Urine Appearance Clear, Urine pH 6.0, Ur Specific [place] >= 1.030, Urine Protein Trace H, Urine Glucose (UA) Negative, Urine Ketones Negative, Urine Blood Trace-intact H, Urine Nitrate Negative, Urine Bilirubin Negative, Urine Urobilinogen 0.2, Ur Leukocyte Esterase Negative, Urine RBC 2 - 5, Urine WBC 0 - 2, Ur Epithelial Cells 3 - 4, Calcium Oxalate Crystal Mod, Urine Other Mucus, Urine HCG, Qual Negative 06/29/18 17:30: Urine Opiates Screen Positive H, Urine Methadone Screen Negative, Ur Barbiturates Screen Negative, Ur Phencyclidine Scrn Negative, Ur Amphetamines Screen Negative, U Benzodiazepines Scrn Positive H, U Oth Cocaine Metabols Positive H, U Cannabinoids Screen Negative 06/29/18 16:50: TSH 3rd Generation 1.07, Alcohol, Quantitative < 10 06/29/18 16:50: Salicylates < 1 L, Acetaminophen < 10.0 L 06/29/18 16:50: Sodium 142, Potassium 3.4 L, Chloride 109 H, Carbon Dioxide 23, Anion Gap 13, BUN 16, Creatinine 0.9, Est GFR ( Amer) > 60, Est GFR (Non- Af Amer) > 60, Random Glucose 89, Calcium 9.0, Magnesium 2.1, Total Bilirubin 0.3, AST 22, ALT 28, Alkaline Phosphatase 64, Total Protein 7.4, Albumin 4.1, Globulin 3.3, Albumin/Globulin Ratio 1.3 06/29/18 16:50: WBC 11.0, RBC 4.34, Hgb 12.8, Hct 39.3, MCV 90.6, MCH 29.5, MCHC 32.6, RDW 17.1 H, Plt Count 408, MPV 8.6, Gran % 67.0, Lymph % (Auto) 24.4, [place] % (Auto) 7.5 H, Eos % (Auto) 0.5 L, Baso % (Auto) 0.6, Gran # 7.37 H, Lymph # (Auto) 2.7, [place] # (Auto) 0.8 H, Eos # (Auto) 0.1, Baso # (Auto) 0.07 Vital Signs Temp Pulse Resp BP Pulse Ox 07/02/18 08:54 121/84 07/02/18 07:27 97.4 F L 85 20 121/84 07/01/18 16:19 120/70 07/01/18 07:38 98.1 F 67 20 100/69 06/30/18 15:36 83 122/86 06/30/18 06:42 98.7 F 83 18 106/70 06/29/18 22:45 18 06/29/18 20:00 97.9 F 81 18 129/91 H 06/29/18 19:03 98.1 F 86 18 98 06/29/18 18:45 98.1 F 86 18 110/83 98 06/29/18 16:09 98 F 87 18 109/73 98 Laboratory Results - last 24 hr 07/08/18 07/08/18 08:15 08:15 WBC 8.0 D RBC 3.90 Hgb 11.2 L Hct 35.6 L MCV 91.3 MCH 28.7 MCHC 31.5 RDW 17.1 H Plt Count 294 MPV 8.7 Gran % 47.1 L Lymph % (Auto) 41.4 H [place] % (Auto) 9.1 H Eos % (Auto) 2.0 Baso % (Auto) 0.4 Gran # 3.77 Lymph # (Auto) 3.3 [place] # (Auto) 0.7 H Eos # (Auto) 0.2 Baso # (Auto) 0.03 Sodium 138 Potassium 4.4 Chloride 106 Carbon Dioxide 29 Anion Gap 9 L BUN 18 Creatinine 0.7 Est GFR ( Amer) > 60 Est GFR (Non-Af Amer) > 60 Random Glucose 87 Calcium 8.5 Total Bilirubin < 0.1 L AST 26 ALT 28 Alkaline Phosphatase 80 Total Protein 6.6 Albumin 3.5 Globulin 3.0 Albumin/Globulin Ratio 1.2 Temp Pulse Resp BP Pulse Ox 98.1 F 65 18 95/60 L 98 07/08/18 07:12 07/08/18 07:12 07/08/18 07:12 07/08/18 07:12 06/29/18 19:03 DSM 5 Symptoms Update: ppatient was seen and examined today in her room, patient presented with labile affect, patient was crying, then smiling than express angry feelings towards the situation. Patient was jumping from one subject to another obviously patient is an manic stage, patient reported that she slept through the night but at the same time she feels "groggy", patient asked Seroquel to be decreased to 25 mg at the nighttime and trazodone to be increased to the previous dose of 400 mg. Patient reported that she she is "hopeful" for ECT treatment tomorrow. aas per Dr. Mckinley and as per staff patient can be intrusive and entitled on the unit but her intentions seem good. She engages with and comforts another patient who needs a lot of emotional support. Sometimes patient needs reminders about boundaries but her intent is in the right place. Overall her interactions are appropriate and not bizarre/grandiose Patient appears healthier to compare with the time of admission, more alert and nourished. Her facial scabs are healing well. pt tolerated meds well, no side effects observed or reported, AIMS 0, no EPS. pt is aware of NPO over night and ECT procedure at am. Diagnostic Results: as per h/o pt was dx with bipolar disorder, at present moment mixed episode, severe no psychosis NEMO Panic Disorder with agoraphobia Crack dependency, severe MJA abuse, mild Alcohol abuse, mild r/o cluster b traits r/o contribution of SIMD Medication Change: Yes (seroquel decreased, trazodone increased) Medical Record Reviewed: Yes Consults ordered or reviewed: medical consult appreciated Endocrinology consult Mental Status Examination - Cognitive Function Orientation: Person, Place, Situation Attention: WNL Concentration: Poor Association: WNL Fund of Knowledge: WNL - Mood Mood: Depressed ("I was feeling hopeless, but now I feel that ECT might be helpful"), Anxious - Affect Affect: Constricted (more related and reactive, less dismissive), Flat - Speech Speech: Appropriate - Formal Thought Process Formal Thought Process: No Impairment - Suicidal Ideation Suicidal Ideation: No - Homicidal Ideation Homicidal Ideation: No Goal/Treatment Plan - Goal/Treatment Plan Need for Continued Stay: Remain at risks for inpatient hospitalization, Severe depression anxiety, Discharge may exacerbated symptoms, Severe functional impairment Progress Toward Problem(s) and Goals/Treatment Plan: group, milieu and supportive tx medical consult appreciated endocrinology consult appreciated Doxycycline for scabs on face family meeting appreciated with mother 07/03/18 trazodone 400 mg HS for depression and insomnia effexor 75mg daily for depression and anxiety seroquel 25mg po hs for mood stabilization Xanax 1 mg po qid for anxiety was advised to take if absolutely needed Ambien 10 mg HS prn insomnia, will hold prior ECT Topamax was weaned off ECT treatment discussed, will start on 07/09/18 vistaril as needed / consultation for discharge plan and social issues Family involvement Follow up on labs Will monitor closely Pt was educated about risk/benefits and alternatives of medications, coping strategies (safety plan, suicide prevention), relapse prevention, importance of follow up with psychiatrist and therapist, stay away from drugs/alcohol/smoking Estimated Date of D/C: 07/13/18
--- NOTE | 2018-07-08 16:44 | PN ---
DATE: 07/08/2018 ENDOCRINOLOGY FOLLOWUP NOTE LOCATION: In room 519. SUBJECTIVE: This is a 42-year-old female with recent admission for generalized anxiety and major depressive disorder, currently being followed closely in psychiatric unit and has also been referred for metabolic evaluation of known history of hyperthyroidism. She remains clinically and biochemically euthyroid at this time and has been off medications as noted. LABORATORY DATA: Her latest chemistry showed a BUN of 18, sodium 138, potassium 4.4, chloride 106, CO2 of 29, glucose 87, and creatinine 0.7. Her latest thyroid studies showed a TSH of 1.22 with a T4 of 6.9 and a free T4 of 0.82. ASSESSMENT AND PLAN: So at this time, we will continue the present medical and psychiatric management, but hold off the resumption of her thyroid pharmacotherapy as she remains biochemically euthyroid at this time. We will follow. Ewa Weathers MD
[2018-07-09] MEDS: Petrolatum-Mineral Oil Oint (100gm) TOP SCH ×4 (03:09→20:55)
--- NOTE | 2018-07-09 08:05 | CP.PCM.PN ---
Subjective - Date & Time of Evaluation Date of Evaluation: 07/09/18 Time of Evaluation: 07:45 - Subjective Subjective: Patient is seen this morning. She is to have ECT today and she is feeling anxious. Objective - Vital Signs/Intake and Output Vital Signs (last 24 hours): Temp Pulse Resp BP Pulse Ox 98.1 F 65 18 97/62 L 98 07/08/18 07:12 07/08/18 16:00 07/08/18 07:12 07/08/18 16:00 06/29/18 19:03 - Medications Medications: Current Medications Acetaminophen (Tylenol 325mg Tab) 650 mg PO Q4H PRN PRN Reason: Pain, moderate (4-7) Last Admin: 07/05/18 07:26 Dose: 650 mg Alprazolam (Xanax) 1 mg PO QID PRN; Protocol PRN Reason: Anxiety Last Admin: 07/08/18 18:27 Dose: 1 mg Atenolol (Tenormin) 25 mg PO BID [facility] Last Admin: 07/08/18 16:45 Dose: Not Given Docusate Sodium (Colace) 100 mg PO BID [facility] Last Admin: 07/08/18 17:03 Dose: 100 mg Fluticasone Propionate (Flonase) 1 actuation NS DAILY [facility] Last Admin: 07/08/18 11:48 Dose: 1 applic Guaifenesin (Robitussin) 100 mg PO Q4H PRN PRN Reason: Cough Last Admin: 07/04/18 12:03 Dose: 100 mg Hydroxyzine Pamoate (Vistaril) 50 mg PO Q8 PRN; Protocol PRN Reason: Anxiety Last Admin: 07/07/18 19:40 Dose: 50 mg Magnesium Hydroxide (Milk Of Magnesia) 30 ml PO DAILY PRN PRN Reason: Constipation Last Admin: 07/03/18 09:52 Dose: 30 ml Miconazole Nitrate (Monistat 7 Vaginal Cream) 0 ea VG DAILY [facility] Last Admin: 07/08/18 09:22 Dose: Not Given Multi-Ingredient Ointment (Hydrophor Oint) 1 gm TOP Q6H [facility] Last Admin: 07/09/18 03:09 Dose: Not Given Oxycodone/Acetaminophen (Percocet 10/325 Mg Tab) 1 tab PO TID PRN PRN Reason: Pain, severe (8-10) Last Admin: 07/08/18 20:34 Dose: 1 tab Pantoprazole Sodium (Protonix Ec Tab) 40 mg PO DAILY [facility] Last Admin: 07/08/18 09:15 Dose: 40 mg Quetiapine Fumarate (Seroquel) 25 mg PO HS [facility]; Protocol Last Admin: 07/08/18 21:47 Dose: 25 mg Sodium Phosphate (Fleet Enema) 135 ml RC Q8H PRN PRN Reason: Constipation Last Admin: 07/06/18 10:19 Dose: 135 ml Tizanidine HCl (Zanaflex) 4 mg PO TID PRN PRN Reason: Muscle spasm Last Admin: 07/08/18 21:41 Dose: 4 mg Trazodone HCl (Desyrel) 400 mg PO HS [facility] Last Admin: 07/08/18 21:45 Dose: 400 mg Venlafaxine HCl (Effexor) 75 mg PO DAILY [facility] Last Admin: 07/08/18 09:15 Dose: 75 mg Zolpidem Tartrate (Ambien) 10 mg PO HS [facility]; Protocol PRN Reason: Insomnia Last Admin: 07/08/18 00:39 Dose: 10 mg - Labs Labs: 07/08/18 08:15 07/08/18 08:15 - Constitutional Appears: No Acute Distress - Head Exam Head Exam: ATRAUMATIC, NORMOCEPHALIC - Respiratory Exam Respiratory Exam: Clear to Ausculation Bilateral, NORMAL BREATHING PATTERN - Cardiovascular Exam Cardiovascular Exam: REGULAR RHYTHM, +S1, +S2 - GI/Abdominal Exam GI & Abdominal Exam: Soft, Normal Bowel Sounds. absent: Tenderness - Extremities Exam Extremities Exam: Normal Inspection - Neurological Exam Neurological Exam: Alert, Awake, Oriented x3 Assessment and Plan - Assessment and Plan (Free Text) Assessment: Depression Bipolar H/O back pain Loss of nasal septum Plan: Patient is feeling anxious over having ECT today. Labwork done yesterday is reviewed and within normal limits. continue behavioral treatment as per psychiatry. continue Colace and milk of magnesia for constipation. Fleets enema as needed for constipation.
[2018-07-09] MEDS ORDERED: Propofol 10 mg/ml Inj (20 ML) ONE (09:10)
[2018-07-09] MEDS ORDERED: HYDROmorphone 0.5 mg/0.5 ml ISec IVP ONE (09:34)
[2018-07-09] MEDS ORDERED: HYDROmorphone 0.5 mg/0.5 ml ISec IM STA (09:52)
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
[2018-07-09] MEDS: Pantoprazole 40 mg EC Tab PO SCH (11:28)
[2018-07-09] MEDS: Fluticasone Nasal 50 mcg/Spray NS SCH (11:31)
[2018-07-09] MEDS: Miconazole 2% Vaginal Cream(45 gm) VG SCH (11:32)
[2018-07-09] MEDS: Oxycodone/Acetaminophen 10/325 mg Tab PO PRN ×2 (13:32→20:29)
--- NOTE | 2018-07-09 16:48 | PCM.ECT ---
Electroconvulsive Therapy Note - Procedure: ECT Court Ordered: No Current treatment number: 1 - Assessment/Plan Medication Plan: methohexital Comment: pt's diagnosis is bipolar disorder, treatment resistant pt had BL treatment 0.3ms, 20Hz, 8s, 76.8 mC, pt did not have adequate seizures, pt is currently on small dose of xanax it might be related to that pt had second ECT at 0.3ms, 25Hz, 8s, 96.0 mC, pt did have adequate seizures for 20 cek, tolerated well pt then was seen in the unit pt did not have any side effects no confusion, no memory issues - Treatment Parameters Setting: Bilateral Charge amp (in %): 150 Pulse width (in msec): 96 Frequency (in Hz): 25 Peripheral seizure duration (in sec): 20
--- NOTE | 2018-07-09 20:26 | PN ---
DATE: 07/09/2018 ENDOCRINOLOGY FOLLOWUP NOTE LOCATION: Room 519, Psychiatry. SUBJECTIVE: This is a 42-year-old female with recent admission for generalized anxiety and depression and is being followed closely in the psychiatric unit and is also being referred for endocrine evaluation of prior history of hyperthyroidism. She remains clinically and biochemically euthyroid at this time and the latest TSH is 1.22 with a total T4 or thyroxine of 6.9 and a free T4 of 0.82. LABORATORY DATA: Her latest chemistry showed a BUN of 18, sodium 138, potassium 4.4, chloride 106, CO2 of 29, glucose 87 and creatinine 0.7. ASSESSMENT AND PLAN: So at this time, we will hold off any kind of thyroid pharmacotherapy as she remains biochemically euthyroid at this time. We are awaiting the results of the thyroid antibodies, which will confirm and/or indicate the presence of underlying thyroid autoimmunity. We will follow. Ewa Weathers MD
[2018-07-10] MEDS: Petrolatum-Mineral Oil Oint (100gm) TOP SCH ×4 (03:17→22:32)
[2018-07-10] MEDS: Oxycodone/Acetaminophen 10/325 mg Tab PO PRN ×3 (07:15→19:59)
--- NOTE | 2018-07-10 08:28 | CP.PCM.PN ---
Subjective - Date & Time of Evaluation Date of Evaluation: 07/10/18 Time of Evaluation: 08:00 - Subjective Subjective: Patient is seen this morning. She underwent her first ECT treatment yesterday. Objective - Vital Signs/Intake and Output Vital Signs (last 24 hours): Temp Pulse Resp BP Pulse Ox 98.4 F 84 20 111/76 100 07/10/18 07:26 07/10/18 07:26 07/10/18 07:26 07/10/18 07:26 07/09/18 10:30 - Medications Medications: Current Medications Acetaminophen (Tylenol 325mg Tab) 650 mg PO Q4H PRN PRN Reason: Pain, moderate (4-7) Last Admin: 07/05/18 07:26 Dose: 650 mg Alprazolam (Xanax) 1 mg PO QID PRN; Protocol PRN Reason: Anxiety Last Admin: 07/09/18 18:05 Dose: 1 mg Atenolol (Tenormin) 25 mg PO BID [facility] Last Admin: 07/09/18 16:56 Dose: Not Given Docusate Sodium (Colace) 100 mg PO BID [facility] Last Admin: 07/09/18 16:53 Dose: 100 mg Fluticasone Propionate (Flonase) 1 actuation NS DAILY [facility] Last Admin: 07/09/18 11:31 Dose: 1 applic Guaifenesin (Robitussin) 100 mg PO Q4H PRN PRN Reason: Cough Last Admin: 07/04/18 12:03 Dose: 100 mg Hydroxyzine Pamoate (Vistaril) 50 mg PO Q8 PRN; Protocol PRN Reason: Anxiety Last Admin: 07/10/18 07:15 Dose: 50 mg Magnesium Hydroxide (Milk Of Magnesia) 30 ml PO DAILY PRN PRN Reason: Constipation Last Admin: 07/03/18 09:52 Dose: 30 ml Miconazole Nitrate (Monistat 7 Vaginal Cream) 0 ea VG DAILY [facility] Last Admin: 07/09/18 11:32 Dose: Not Given Multi-Ingredient Ointment (Hydrophor Oint) 1 gm TOP Q6H [facility] Last Admin: 07/10/18 03:17 Dose: Not Given Oxycodone/Acetaminophen (Percocet 10/325 Mg Tab) 1 tab PO TID PRN PRN Reason: Pain, severe (8-10) Last Admin: 07/10/18 07:15 Dose: 1 tab Pantoprazole Sodium (Protonix Ec Tab) 40 mg PO DAILY [facility] Last Admin: 07/09/18 11:28 Dose: 40 mg Paroxetine HCl (Paxil) 20 mg PO HS [facility] Last Admin: 07/09/18 22:34 Dose: 20 mg Quetiapine Fumarate (Seroquel) 25 mg PO HS [facility]; Protocol Last Admin: 07/09/18 21:23 Dose: 25 mg Sodium Phosphate (Fleet Enema) 135 ml RC Q8H PRN PRN Reason: Constipation Last Admin: 07/06/18 10:19 Dose: 135 ml Tizanidine HCl (Zanaflex) 4 mg PO TID PRN PRN Reason: Muscle spasm Last Admin: 07/09/18 21:23 Dose: 4 mg Trazodone HCl (Desyrel) 400 mg PO HS [facility] Last Admin: 07/09/18 21:23 Dose: 400 mg Zolpidem Tartrate (Ambien) 10 mg PO HS PRN; Protocol PRN Reason: Insomnia Last Admin: 07/09/18 23:13 Dose: 10 mg - Labs Labs: 07/08/18 08:15 07/08/18 08:15 - Constitutional Appears: No Acute Distress - Head Exam Head Exam: ATRAUMATIC, NORMOCEPHALIC - Respiratory Exam Respiratory Exam: Clear to Ausculation Bilateral, NORMAL BREATHING PATTERN - Cardiovascular Exam Cardiovascular Exam: REGULAR RHYTHM, +S1, +S2 - GI/Abdominal Exam GI & Abdominal Exam: Soft, Normal Bowel Sounds. absent: Tenderness - Neurological Exam Neurological Exam: Alert, Awake, Oriented x3 Assessment and Plan - Assessment and Plan (Free Text) Assessment: Bipolar loss of septum constipation anxiety Plan: Patient underwent ECT yesterday and says that she is feeling a little better. She continues to complain of insomnia. continue treatment as per psychiatry. Patient is to have ECT treatment again tomorrow. Thyroid studies ordered. Urinalysis ordered. Patient was seen by ENT and crusty secretions were removed. continue colace and milk of magnesia as needed for constipation.
--- NOTE | 2018-07-10 09:10 | PCM.BM ---
Treatment Plan Problems - Problems identified on initial assessmt Anxiety related tosubstance abuse Date Initiated: 06/29/18 Time Initiated: 20:00 Assessment reference: NA Status: Active - Milieu Protocol Milieu Narrative: group, milieu and supportive tx medical consult appreciated endocrinology consult appreciated Doxycycline for scabs on face family meeting appreciated with mother 07/03/18 trazodone 400 mg HS for depression and insomnia effexor 75mg daily for depression and anxiety seroquel 25mg po hs for mood stabilization Xanax 1 mg po qid for anxiety was advised to take if absolutely needed Ambien 10 mg HS prn insomnia, will hold prior ECT Topamax was weaned off ECT treatment discussed, will start on 07/09/18 vistaril as needed /SW consultation for discharge plan and social issues Family involvement Follow up on labs Will monitor closely Pt was educated about risk/benefits and alternatives of medications, coping strategies (safety plan, suicide prevention), relapse prevention, importance of follow up with psychiatrist and therapist, stay away from drugs/alcohol/smoking Family Contact Family contact: Patient agrees to contact Discharge/Continuing Care - Treatment Team Participation Patient/Family/SO Statement: group, milieu and supportive tx medical consult appreciated endocrinology consult appreciated Doxycycline for scabs on face family meeting appreciated with mother 07/03/18 trazodone 400 mg HS for depression and insomnia effexor 75mg daily for depression and anxiety seroquel 25mg po hs for mood stabilization Xanax 1 mg po qid for anxiety was advised to take if absolutely needed Ambien 10 mg HS prn insomnia, will hold prior ECT Topamax was weaned off ECT treatment discussed, will start on 07/09/18 vistaril as needed /SW consultation for discharge plan and social issues Family involvement Follow up on labs Will monitor closely Pt was educated about risk/benefits and alternatives of medications, coping strategies (safety plan, suicide prevention), relapse prevention, importance of follow up with psychiatrist and therapist, stay away from drugs/alcohol/smoking Treatment Plan Review - Problem Anxiety related tosubstance abuse Time Initiated: 20:00
[2018-07-10] MEDS: Fluticasone Nasal 50 mcg/Spray NS SCH (09:16)
[2018-07-10] MEDS: Pantoprazole 40 mg EC Tab PO SCH (09:17)
[2018-07-10] MEDS: Miconazole 2% Vaginal Cream(45 gm) VG SCH (09:44)
[2018-07-10 10:44] LABS: FREE T4 0.84 ng/dL (0.78-2.19)
[2018-07-10 10:58] LABS: T3 1.4 ng/mL (0.97-1.69)
[2018-07-10 11:16] LABS: URINE BILIRUBIN NEGATIVE (NEGATIVE); URINE BLOOD TRACE-INTACT (NEGATIVE); URINE GLUCOSE (UA) NEGATIVE (NEGATIVE); URINE LEUKOCYTE ESTERASE NEGATIVE Leu/uL (NEGATIVE); URINE PROTEIN NEGATIVE mg/dL (<30 mg/dL); URINE UROBILINOGEN 0.2 E.U./dL (<1 E.U./dL)
[2018-07-10 11:17] LABS: URINE APPEARANCE CLEAR (CLEAR); URINE COLOR YELLOW (YELLOW)
[2018-07-10 11:26] LABS: URINE RBC 0 - 2 /hpf (0-2)
[2018-07-10 11:27] LABS: URINE BACTERIA FEW (NEG)
[2018-07-10] MEDS: Benzocaine 20% Cream(7 gm) MT PRN ×2 (12:55→20:00)
--- NOTE | 2018-07-10 14:54 | PN ---
DATE: 07/10/2018 ENDO FOLLOWUP NOTE LOCATION: Room 519. SUBJECTIVE: This is a 42-year-old female with major anxiety and depression, currently undergoing electroconvulsive therapy at this time and is now being followed closely also for metabolic management. She remains clinically and biochemically euthyroid at this time. LABORATORY DATA: The repeat chemistries showed a BUN of 18, sodium 138, potassium 4.4, chloride 106, CO2 of 29, glucose 87 and creatinine 0.7. The repeat thyroid study showed a TSH of 1.26 with a free T4 of 0.84. Her thyroid antibodies are still pending at this time as noted. So for now, we will hold off any kind of thyroid pharmacotherapy as she remains clinically and biochemically euthyroid at this time. The implications from the aforementioned were discussed lengthily with the patient at bedside and she understands that she needs serial thyroid studies accordingly. We will follow this. Ewa Weathers MD
--- NOTE | 2018-07-10 15:50 | PCM.PYCHPN ---
Psychiatric Progress Note - Psychiatric Progress Note Patient seen today, length of contact: 30 min Patient Chief Complaint: "I feel little better, I feel medicated but I am not, do like ECT" Problems Identified/Issues Discussed: Suicide/ homicide prevention, past psychiatric h/o, current psychiatric symptoms, medical problems, risk/benefits and alternatives of medications, medications compliance, coping strategies, substance abuse h/o, relapse prevention, importance of follow up with psychiatrist and therapist, discharge plan. Medical Problems: see HPI Diagnostic Results: 06/29/18 16:50 07/01/18 06:00 Lab Results 07/02/18 06:40: Free T4 0.93, TSH 3rd Generation 1.93 07/01/18 06:00: Sodium 139, Potassium 3.8, Chloride 112 H, Carbon Dioxide 23, Anion Gap 8 L, BUN 14, Creatinine 0.8, Est GFR ( Amer) > 60, Est GFR (Non-Af Amer) > 60, Random Glucose 88, Calcium 8.3 L 06/29/18 17:30: Urine Color Yellow, Urine Appearance Clear, Urine pH 6.0, Ur Specific [place] >= 1.030, Urine Protein Trace H, Urine Glucose (UA) Negative, Urine Ketones Negative, Urine Blood Trace-intact H, Urine Nitrate Negative, Urine Bilirubin Negative, Urine Urobilinogen 0.2, Ur Leukocyte Esterase Negative, Urine RBC 2 - 5, Urine WBC 0 - 2, Ur Epithelial Cells 3 - 4, Calcium Oxalate Crystal Mod, Urine Other Mucus, Urine HCG, Qual Negative 06/29/18 17:30: Urine Opiates Screen Positive H, Urine Methadone Screen Negative, Ur Barbiturates Screen Negative, Ur Phencyclidine Scrn Negative, Ur Amphetamines Screen Negative, U Benzodiazepines Scrn Positive H, U Oth Cocaine Metabols Positive H, U Cannabinoids Screen Negative 06/29/18 16:50: TSH 3rd Generation 1.07, Alcohol, Quantitative < 10 06/29/18 16:50: Salicylates < 1 L, Acetaminophen < 10.0 L 06/29/18 16:50: Sodium 142, Potassium 3.4 L, Chloride 109 H, Carbon Dioxide 23, Anion Gap 13, BUN 16, Creatinine 0.9, Est GFR ( Amer) > 60, Est GFR (Non- Af Amer) > 60, Random Glucose 89, Calcium 9.0, Magnesium 2.1, Total Bilirubin 0.3, AST 22, ALT 28, Alkaline Phosphatase 64, Total Protein 7.4, Albumin 4.1, Globulin 3.3, Albumin/Globulin Ratio 1.3 06/29/18 16:50: WBC 11.0, RBC 4.34, Hgb 12.8, Hct 39.3, MCV 90.6, MCH 29.5, MCHC 32.6, RDW 17.1 H, Plt Count 408, MPV 8.6, Gran % 67.0, Lymph % (Auto) 24.4, [place] % (Auto) 7.5 H, Eos % (Auto) 0.5 L, Baso % (Auto) 0.6, Gran # 7.37 H, Lymph # (Auto) 2.7, [place] # (Auto) 0.8 H, Eos # (Auto) 0.1, Baso # (Auto) 0.07 Vital Signs Temp Pulse Resp BP Pulse Ox 07/02/18 08:54 121/84 07/02/18 07:27 97.4 F L 85 20 121/84 07/01/18 16:19 120/70 07/01/18 07:38 98.1 F 67 20 100/69 06/30/18 15:36 83 122/86 06/30/18 06:42 98.7 F 83 18 106/70 06/29/18 22:45 18 06/29/18 20:00 97.9 F 81 18 129/91 H 06/29/18 19:03 98.1 F 86 18 98 06/29/18 18:45 98.1 F 86 18 110/83 98 06/29/18 16:09 98 F 87 18 109/73 98 Laboratory Results - last 24 hr 07/08/18 07/08/18 08:15 08:15 WBC 8.0 D RBC 3.90 Hgb 11.2 L Hct 35.6 L MCV 91.3 MCH 28.7 MCHC 31.5 RDW 17.1 H Plt Count 294 MPV 8.7 Gran % 47.1 L Lymph % (Auto) 41.4 H [place] % (Auto) 9.1 H Eos % (Auto) 2.0 Baso % (Auto) 0.4 Gran # 3.77 Lymph # (Auto) 3.3 [place] # (Auto) 0.7 H Eos # (Auto) 0.2 Baso # (Auto) 0.03 Sodium 138 Potassium 4.4 Chloride 106 Carbon Dioxide 29 Anion Gap 9 L BUN 18 Creatinine 0.7 Est GFR ( Amer) > 60 Est GFR (Non-Af Amer) > 60 Random Glucose 87 Calcium 8.5 Total Bilirubin < 0.1 L AST 26 ALT 28 Alkaline Phosphatase 80 Total Protein 6.6 Albumin 3.5 Globulin 3.0 Albumin/Globulin Ratio 1.2 Temp Pulse Resp BP Pulse Ox 98.1 F 65 18 95/60 L 98 07/08/18 07:12 07/08/18 07:12 07/08/18 07:12 07/08/18 07:12 06/29/18 19:03 DSM 5 Symptoms Update: patient was seen and examined today in her room, patient presented with labile affect, patient was crying, then smiling than express angry feelings towards the situation. Patient was jumping from one subject to another obviously patient is an manic stage, patient reported that she slept through the night but at the same time she feels "groggy", patient asked Seroquel to be decreased to 25 mg at the nighttime and trazodone to be increased to the previous dose of 400 mg. Patient reported that she she is "hopeful" for ECT treatment. Pt got his first ECT treatment 07/09/18 pt had BL treatment 0.3ms, 20Hz, 8s, 76.8 mC, pt did not have adequate seizures, pt is currently on small dose of xanax pt had second ECT at 0.3ms, 25Hz, 8s, 96.0 mC, pt did have adequate seizures for 20 cek, tolerated well no confusion, no memory loss pt was seen today, pt reported that she slept "little better", reported that she wants to continue on ECT treatment. OR will not have spot available for tomorrow, will do and Monday. pt still intrusive and entitled on the unit but her intentions seem good. Sometimes patient needs reminders about boundaries but her intent is in the right place. Overall her interactions are appropriate and not bizarre/grandiose, but pt is emotionally labile, pt was is crying with no reason, then apologize. Patient appears healthier to compare with the time of admission, more alert and nourished. Her facial scabs are healing well. pt tolerated meds well, no side effects observed or reported, AIMS 0, no EPS. Diagnostic Results: as per h/o pt was dx with bipolar disorder, at present moment mixed episode, severe no psychosis NEMO Panic Disorder with agoraphobia Crack dependency, severe MJA abuse, mild Alcohol abuse, mild r/o cluster b traits r/o contribution of SIMD Medication Change: No Medical Record Reviewed: Yes Consults ordered or reviewed: medical consult appreciated Endocrinology consult see notes for more detailed information Mental Status Examination - Cognitive Function Orientation: Person, Place, Situation Attention: WNL Concentration: Poor (some improvement) Association: WNL Fund of Knowledge: WNL - Mood Mood: Depressed ("I feel little better"), Anxious - Affect Affect: Constricted (labile) - Speech Speech: Appropriate - Formal Thought Process Formal Thought Process: No Impairment - Suicidal Ideation Suicidal Ideation: No - Homicidal Ideation Homicidal Ideation: No Goal/Treatment Plan - Goal/Treatment Plan Need for Continued Stay: Remain at risks for inpatient hospitalization, Severe depression anxiety, Discharge may exacerbated symptoms, Severe functional impairment Progress Toward Problem(s) and Goals/Treatment Plan: group, milieu and supportive tx medical consult appreciated endocrinology consult appreciated Doxycycline for scabs on face family meeting appreciated with mother 07/03/18 trazodone 400 mg HS for depression and insomnia effexor d/c paxil 20mg hs depression for anxiety seroquel 25mg po hs for mood stabilization Xanax 1 mg po qid for anxiety was advised to take if absolutely needed Ambien 10 mg HS prn insomnia, will hold prior ECT Topamax was weaned off #1 ECT treatment 07/09/18 #2 ECT treatment 07/11/18 vistaril as needed / consultation for discharge plan and social issues Family involvement Follow up on labs Will monitor closely Pt was educated about risk/benefits and alternatives of medications, coping strategies (safety plan, suicide prevention), relapse prevention, importance of follow up with psychiatrist and therapist, stay away from drugs/alcohol/smoking Estimated Date of D/C: 07/13/18
[2018-07-11] MEDS: Petrolatum-Mineral Oil Oint (100gm) TOP SCH ×4 (03:24→21:02)
[2018-07-11] MEDS: Fluticasone Nasal 50 mcg/Spray NS SCH (11:22)
[2018-07-11] MEDS: Oxycodone/Acetaminophen 10/325 mg Tab PO PRN ×3 (11:24→22:06)
[2018-07-11] MEDS: Pantoprazole 40 mg EC Tab PO SCH (11:25)
[2018-07-11] MEDS: Miconazole 2% Vaginal Cream(45 gm) VG SCH (11:28)
--- NOTE | 2018-07-11 12:45 | PN ---
DATE: 07/11/2018 SUBJECTIVE: The patient in [facility] in [place] in the Behavioral Care Unit, room 519, bed 2. The patient was admitted with depression. She has history of substance abuse and chronic viral infection. The patient also has severe nasal allergy. She has traumatic damage to nasal septum. This morning she is awake and alert walking around. She seemed to be restless on observation. PHYSICAL EXAMINATION: VITAL SIGNS: The patient's pulse is 68, blood pressure 100/70, respirations are 20. HEENT: Normocephalic. The lesions in the face are healed. The patient has herpetic lesions in the lip. NECK: Thyroid is not enlarged. LUNGS: Trachea central. Breath sounds are vesicular. No adventitious sounds are heard. HEART: Normal sinus rhythm. S1, S2 present. No murmurs. ABDOMEN: Soft. Liver and spleen not palpable. The metal ring around the umbilicus has been removed. P[employer] GRADER: The patient conscious, rational and oriented. No focal neurological deficits are noted. MEDICATIONS: The patient's medication consisted of Ambien for sleep 10 mg, the patient is on Colace for constipation. The patient takes Desyrel 400 mg at bedtime. The patient is on Flonase for nasal allergy. The patient gets Milk of Magnesia for constipation. She is on Paxil 20 mg at night, oxycodone for pain, pantoprazole for gastritis, and the patient gets 25 mg of Seroquel at night. In spite of multiple sedative medications, she says she does not get any sleep. She is pending getting ECT treatment today, tentatively scheduled. Hopefully, she will get the treatment. In the meantime she seemed to be progressing reasonably well. PROGNOSIS: Guarded. CONDITION: Getting stable. Makenna Martinez MD [facility]
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
[2018-07-11 16:22] LABS: TSI 96 % baseline (<140)
[2018-07-11 20:45] LABS: THYROGLOBULIN 8.1 ng/mL (2.8-40.9)
--- NOTE | 2018-07-11 23:39 | PN ---
DATE: 07/11/2018 ENDOCRINOLOGY FOLLOWUP NOTE LOCATION: In room 519, Psychiatry. SUBJECTIVE: This is a 42-year-old female with recent major depressive disorder, currently undergoing electroconvulsive therapy and is now being followed closely for metabolic management. Her latest thyroid studies remain euthyroid at this time. She also remains clinically euthyroid as noted. Her latest TSH is 1.26 with a with a free T4 of 0.84. Her thyroid stimulating immunoglobulins, which are very specific for Graves disease have been reported as elevated with a value of 96. LABORATORY DATA: Her latest chemistry showed a BUN of 18, sodium 138, potassium 4.4, chloride 106, CO2 of 29, glucose 87, and creatinine 0.7. ASSESSMENT AND PLAN: So, at this time, this confirmed the presence of underlying autoimmune thyroiditis, i.e., Graves disease which could potentially predispose her for recurrence of hyperthyroidism. However, she remains clinically and biochemically euthyroid at this time, we will hold off the resumption of medical therapy with thioureas at this time. We will observe her clinical and biochemical responses thereof and obtain serial thyroid studies accordingly. Ewa Weathers MD
[2018-07-12] MEDS: Petrolatum-Mineral Oil Oint (100gm) TOP SCH ×4 (02:00→22:20)
[2018-07-12] MEDS ORDERED: Propofol 10 mg/ml Inj (20 ML) ONE (09:16)
[2018-07-12] MEDS ORDERED: Succinylcholine 200 mg/10 ml Inj IV ONE (09:26)
[2018-07-12] MEDS ORDERED: HYDROmorphone 0.5 mg/0.5 ml ISec IVP PRN ×2 (09:47→09:49)
[2018-07-12] MEDS: Miconazole 2% Vaginal Cream(45 gm) VG SCH (10:41)
[2018-07-12] MEDS: Pantoprazole 40 mg EC Tab PO SCH (10:42)
[2018-07-12] MEDS: Oxycodone/Acetaminophen 10/325 mg Tab PO PRN ×3 (10:45→22:08)
[2018-07-12] MEDS: Fluticasone Nasal 50 mcg/Spray NS SCH (11:08)
--- NOTE | 2018-07-12 13:13 | PN ---
DATE: 07/12/2018 ENDO FOLLOWUP NOTE LOCATION; Room 519, Psychiatry. HISTORY OF PRESENT ILLNESS: This is a 42-year-old female with generalized anxiety and major depression and currently undergoing electroconvulsive therapy at this time and is being followed closely also for metabolic management. She remains clinically and biochemically euthyroid at this time. LABORATORY DATA: Her latest chemistry showed a BUN of 18, sodium 138, potassium 4.4, chloride 106, CO2 29, glucose 87 and creatinine 0.7. The repeat thyroid study showed a TSH of 1.26 with a free T4 of 0.84. Her thyroid stimulating immunoglobulin is 96 which is indicative and confirmatory for Graves disease and underlying autoimmune thyroiditis. However, at this time, there is no indication for the resumption of her medical therapy for Tapazole medications as she remains biochemically euthyroid at this time. We will obtain serial thyroid studies accordingly and determine the need to resume the medications accordingly. We will follow with this. Ewa Weathers MD
--- NOTE | 2018-07-12 13:54 | PN ---
DATE: 07/12/2018 SUBJECTIVE: The patient is in the [facility] in [place]. She was admitted with depression. She also has a history of chronic viral infection. The patient has history of headaches and has history of depression and the patient also has a history of substance abuse. She was seen this morning, walking about in the unit. She is comfortable, very pleasant and answers all the questions. PHYSICAL EXAMINATION VITAL SIGNS: Pulse is 63, blood pressure is 95/61 and respirations are 20. HEENT: The patient's head is normocephalic, no injuries are noted. Face, state of lesions are healed. The patient has an abscess in the tooth; probably the patient is getting clindamycin. LUNGS: Clear. HEART: Normal sinus rhythm. ABDOMEN: Soft. Liver and spleen not palpable. STUD SETTER: No focal deficits. MEDICATIONS: The patient's medications consist of Ambien 10 mg for sleep. The patient is on Cleocin 150 mg b.i.d. for infection in the gums of the tooth in the upper jaw. The patient is on trazodone 400 mg daily. The patient gets Flonase for nasal allergy. The patient is on Monistat for vaginal irritation because she is on antibiotic. The patient gets Orajel for pain in the mouth around the teeth. She is on Paxil 40 mg daily. Pain medication, Percocet 10/325 one q.6 hours p.r.n. The patient is also getting pantoprazole 40 mg daily for gastritis. Seroquel 25 mg at bedtime. Atenolol 25 mg b.i.d. for elevation of blood pressure and heart rate. The patient is also getting chronic treatment for viral infection, Valtrex 500 mg b.i.d. She is on hydroxyzine, which is Vistaril 50 mg q.8 hours p.r.n. for anxiety. ASSESSMENT AND PLAN: She is improving. The patient is scheduled for ECT treatment today and tomorrow, and the patient will be on observation for a few hours and she probably will be discharged. We will continue current management, follow up medically. Makenna Martinez MD [facility] # [id number] MTDD
--- NOTE | 2018-07-12 15:08 | PCM.PYCHPN ---
Psychiatric Progress Note - Psychiatric Progress Note Patient seen today, length of contact: 30 min Patient Chief Complaint: "I feel relaxed, I feel better, I finally slept last night" Problems Identified/Issues Discussed: Suicide/ homicide prevention, past psychiatric h/o, current psychiatric symptoms, medical problems, risk/benefits and alternatives of medications, medi cations compliance, coping strategies, substance abuse h/o, relapse prevention, importance of follow up with psychiatrist and therapist, discharge plan. Medical Problems: see HPI Diagnostic Results: 06/29/18 16:50 07/01/18 06:00 Lab Results 07/02/18 06:40: Free T4 0.93, TSH 3rd Generation 1.93 07/01/18 06:00: Sodium 139, Potassium 3.8, Chloride 112 H, Carbon Dioxide 23, Anion Gap 8 L, BUN 14, Creatinine 0.8, Est GFR ( Amer) > 60, Est GFR (Non-Af Amer) > 60, Random Glucose 88, Calcium 8.3 L 06/29/18 17:30: Urine Color Yellow, Urine Appearance Clear, Urine pH 6.0, Ur Specific [place] >= 1.030, Urine Protein Trace H, Urine Glucose (UA) Negative, Urine Ketones Negative, Urine Blood Trace-intact H, Urine Nitrate Negative, Urine Bilirubin Negative, Urine Urobilinogen 0.2, Ur Leukocyte Esterase Negative, Urine RBC 2 - 5, Urine WBC 0 - 2, Ur Epithelial Cells 3 - 4, Calcium Oxalate Crystal Mod, Urine Other Mucus, Urine HCG, Qual Negative 06/29/18 17:30: Urine Opiates Screen Positive H, Urine Methadone Screen Negative, Ur Barbiturates Screen Negative, Ur Phencyclidine Scrn Negative, Ur Amphetamines Screen Negative, U Benzodiazepines Scrn Positive H, U Oth Cocaine Metabols Positive H, U Cannabinoids Screen Negative 06/29/18 16:50: TSH 3rd Generation 1.07, Alcohol, Quantitative < 10 06/29/18 16:50: Salicylates < 1 L, Acetaminophen < 10.0 L 06/29/18 16:50: Sodium 142, Potassium 3.4 L, Chloride 109 H, Carbon Dioxide 23, Anion Gap 13, BUN 16, Creatinine 0.9, Est GFR ( Amer) > 60, Est GFR (Non- Af Amer) > 60, Random Glucose 89, Calcium 9.0, Magnesium 2.1, Total Bilirubin 0.3, AST 22, ALT 28, Alkaline Phosphatase 64, Total Protein 7.4, Albumin 4.1, Globulin 3.3, Albumin/Globulin Ratio 1.3 06/29/18 16:50: WBC 11.0, RBC 4.34, Hgb 12.8, Hct 39.3, MCV 90.6, MCH 29.5, MCHC 32.6, RDW 17.1 H, Plt Count 408, MPV 8.6, Gran % 67.0, Lymph % (Auto) 24.4, [place] % (Auto) 7.5 H, Eos % (Auto) 0.5 L, Baso % (Auto) 0.6, Gran # 7.37 H, Lymph # (Auto) 2.7, [place] # (Auto) 0.8 H, Eos # (Auto) 0.1, Baso # (Auto) 0.07 Vital Signs Temp Pulse Resp BP Pulse Ox 07/02/18 08:54 121/84 07/02/18 07:27 97.4 F L 85 20 121/84 07/01/18 16:19 120/70 07/01/18 07:38 98.1 F 67 20 100/69 06/30/18 15:36 83 122/86 06/30/18 06:42 98.7 F 83 18 106/70 06/29/18 22:45 18 06/29/18 20:00 97.9 F 81 18 129/91 H 06/29/18 19:03 98.1 F 86 18 98 06/29/18 18:45 98.1 F 86 18 110/83 98 06/29/18 16:09 98 F 87 18 109/73 98 Laboratory Results - last 24 hr 07/08/18 07/08/18 08:15 08:15 WBC 8.0 D RBC 3.90 Hgb 11.2 L Hct 35.6 L MCV 91.3 MCH 28.7 MCHC 31.5 RDW 17.1 H Plt Count 294 MPV 8.7 Gran % 47.1 L Lymph % (Auto) 41.4 H [place] % (Auto) 9.1 H Eos % (Auto) 2.0 Baso % (Auto) 0.4 Gran # 3.77 Lymph # (Auto) 3.3 [place] # (Auto) 0.7 H Eos # (Auto) 0.2 Baso # (Auto) 0.03 Sodium 138 Potassium 4.4 Chloride 106 Carbon Dioxide 29 Anion Gap 9 L BUN 18 Creatinine 0.7 Est GFR ( Amer) > 60 Est GFR (Non-Af Amer) > 60 Random Glucose 87 Calcium 8.5 Total Bilirubin < 0.1 L AST 26 ALT 28 Alkaline Phosphatase 80 Total Protein 6.6 Albumin 3.5 Globulin 3.0 Albumin/Globulin Ratio 1.2 Temp Pulse Resp BP Pulse Ox 98.1 F 65 18 95/60 L 98 07/08/18 07:12 07/08/18 07:12 07/08/18 07:12 07/08/18 07:12 06/29/18 19:03 DSM 5 Symptoms Update: patient was seen and examined today in her room, patient presented with labile affect, patient was crying, then smiling than express angry feelings towards the situation. Patient was jumping from one subject to another obviously patient is an manic stage, patient reported that she slept through the night but at the same time she feels "groggy", patient asked Seroquel to be decreased to 25 mg at the nighttime and trazodone to be increased to the previous dose of 400 mg. Patient reported that she she is "hopeful" for ECT treatment. Pt got ECT treatment 07/09/18, needed to have 2x ECT in order to have adequate seizures pt had BL treatment 0.3ms, 20Hz, 8s, 76.8 mC, pt did not have adequate seizures, pt is currently on small dose of xanax pt had second ECT at 0.3ms, 25Hz, 8s, 96.0 mC, pt did have adequate seizures for 20 cek, tolerated well no confusion, no memory loss pt got ECT treatment 07/12/18, needed to have 3xECT in order to have adequate seizures BL treatment ECT at 0.3ms, 25Hz, 8s, 96.0 mC, did not have seizures then 0.5ms BL 20Hz, 6.5ceck, 104.0mC did not have seizures then 0.5mc BL 20Hz, 8.0ceck, 128.0mC pt got 15cek motor seizures pt tolerated well, the reason why pt was not have seizures, pt was taking extra dose of xanax yesterday. pt was seen later on in the unit, pt is not confused, did not have any memory problems. pt requested to be d/c tomorrow. Patient appears healthier to compare with the time of admission, more alert and nourished. Her facial scabs are healing well. pt reported that she feels "more relaxed, I feel better overall". pt tolerated meds well, no side effects observed or reported, AIMS 0, no EPS. Diagnostic Results: as per h/o pt was dx with bipolar disorder, at present moment mixed episode, severe no psychosis NEMO Panic Disorder with agoraphobia Crack dependency, severe MJA abuse, mild Alcohol abuse, mild r/o cluster b traits r/o contribution of SIMD Medication Change: No Medical Record Reviewed: Yes Mental Status Examination - Cognitive Function Orientation: Person, Place, Situation Attention: WNL Concentration: Poor (some improvement) Association: WNL Fund of Knowledge: WNL - Mood Mood: Depressed ("I feel little better"), Anxious - Affect Affect: Broad - Speech Speech: Appropriate - Formal Thought Process Formal Thought Process: No Impairment - Suicidal Ideation Suicidal Ideation: No - Homicidal Ideation Homicidal Ideation: No Goal/Treatment Plan - Goal/Treatment Plan Need for Continued Stay: Remain at risks for inpatient hospitalization, Severe depression anxiety, Discharge may exacerbated symptoms, Severe functional impairment Progress Toward Problem(s) and Goals/Treatment Plan: group, milieu and supportive tx medical consult appreciated endocrinology consult appreciated Doxycycline for scabs on face family meeting appreciated with mother 07/03/18 trazodone 400 mg HS for depression and insomnia effexor d/c paxil 40mg hs depression for anxiety seroquel 25mg po hs for mood stabilization Xanax 1 mg po qid for anxiety was advised to take if absolutely needed Ambien 10 mg HS prn insomnia, will hold prior ECT Topamax was weaned off #1 ECT treatment 07/09/18 #2 ECT treatment 07/11/18 tolerated well vistaril as needed / consultation for discharge plan and social issues Family involvement Follow up on labs Will monitor closely Pt was educated about risk/benefits and alternatives of medications, coping strategies (safety plan, suicide prevention), relapse prevention, importance of follow up with psychiatrist and therapist, stay away from drugs/alcohol/smoking Estimated Date of D/C: 07/13/18
[2018-07-12 18:05] LABS: TSI <89 % baseline (<140)
[2018-07-13] MEDS: Petrolatum-Mineral Oil Oint (100gm) TOP SCH ×2 (05:22→11:42)
[2018-07-13 07:29] VITALS: PULSE 70
[2018-07-13] MEDS ORDERED: Propofol 10 mg/ml Inj (20 ML) ONE (09:03)
[2018-07-13] MEDS ORDERED: Succinylcholine 200 mg/10 ml Inj IV ONE (09:06)
[2018-07-13 09:07] VITALS: BP 106/87; RESP 18; TEMP 98.7; O2SAT 98
[2018-07-13] MEDS ORDERED: Lactated Ringer's 1,000 ML IV SCH (10:00)
[2018-07-13] MEDS ORDERED: HYDROmorphone 0.5 mg/0.5 ml ISec IVP ONE (10:10)
[2018-07-13] MEDS ORDERED: HYDROmorphone 0.5 mg/0.5 ml ISec IM STA (10:18)
[2018-07-13] MEDS: Pantoprazole 40 mg EC Tab PO SCH (11:27)
--- NOTE | 2018-07-13 11:39 | PN ---
DATE: 07/13/2018 SUBJECTIVE: The patient is in [facility]. She has no known allergies. The patient was admitted with depression and patient has a history of substance abuse. 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 She also has a history of chronic viral infection, herpes type. PHYSICAL EXAMINATION: VITAL SIGNS: Pulse is 70, blood pressure of 110/70, respirations of 20, temperature 98.8. Patient has received ECG treatment yesterday. She is going to get treatment today and she will be discharged by the psychiatrist after the treatment in the afternoon. LUNGS: Clear. ABDOMEN: Soft. Liver and spleen not palpable. CENTRAL NERVOUS SYSTEM: No focal deficit. The patient is totally with it and very much accepting the treatment plan. MEDICATIONS: Consist of Ambien for sleep. Patient is on clindamycin for oral abscess. She takes Desyrel, Dilaudid for pain. The patient is on paroxetine which is Paxil 40 mg daily, pantoprazole 40 mg daily. Patient gets Seroquel 25 mg at bedtime and atenolol 25 mg twice a day. Blood pressure medically not given when the systolic pressure is below 130. The patient's condition is improving and has improved much during the stay. We will follow up medically. Makenna Martinez MD [facility]
[2018-07-13] MEDS: Miconazole 2% Vaginal Cream(45 gm) VG SCH (11:41)
[2018-07-13] MEDS: Fluticasone Nasal 50 mcg/Spray NS SCH (11:50)
--- NOTE | 2018-07-13 15:51 | PCM.PYCHDC ---
Mental Status Examination - Mental Status Examination Orientation: Person, Place, Situation, Time Memory: Intact Mood: Neutral Affect: Broad (and mood congruent) Speech: Appropriate Attention: WNL Concentration: WNL Association: WNL Fund of Knowledge: WNL Formal Thought Process: No Impairment Description of patient's judgement and insight: Pt has improved insight into mental and medical illness, pt was compliant with medications and unit rules and regulations, pt was going to groups, was calm, cooperative, socially appropriate, no behavioral incidents, no agitation, no aggression. Psychotic Thoughts and Behaviors: Pt denied v/a/t hallucinations, denied paranoid ideations, pt does not appear to be psychotic, and thought process is goal directed. Suicidal Ideation: No Current Homicidal Ideation?: No Plan: pt adamantly denied thoughts of harming self or others denied intent or plan. Discharge Summary - Discharge Note Reason for Hospitalization: depression, anxiety, inability to function Psychiatric History (includes Medical, Family, Personal Hx): long history of mental illness, multiple hospitalizations in the past Laboratory Data: Abnormal Lab Results 07/10/18 09:30 Thyroid Stim Immunoglob <89 07/08/18 08:15 07/08/18 08:15 Lab Results 07/10/18 10:48: Urine Color Yellow, Urine Appearance Clear, Urine pH 6.0, Ur Specific [place] <= 1.005, Urine Protein Negative, Urine Glucose (UA) Negative, Urine Ketones Negative, Urine Blood Trace-intact H, Urine Nitrate Negative, Urine Bilirubin Negative, Urine Urobilinogen 0.2, Ur Leukocyte Esterase Negative, Urine RBC 0 - 2, Urine WBC 2 - 5, Ur Epithelial Cells 4 - 5, Urine Bacteria Few 07/10/18 09:30: Free T4 0.84, Total T3 1.40, TSH 3rd Generation 1.26 07/10/18 09:30: Thyroglobulin, Quant 8.1, Thyroid Stim Immunoglob <89, Thyro peroxidase Ab <1, Thyroglobulin Antibody <1 07/08/18 08:15: Sodium 138, Potassium 4.4, Chloride 106, Carbon Dioxide 29, Anion Gap 9 L, BUN 18, Creatinine 0.7, Est GFR ( Amer) > 60, Est GFR (Non-Af Amer) > 60, Random Glucose 87, Calcium 8.5, Total Bilirubin < 0.1 L, AST 26, ALT 28, Alkaline Phosphatase 80, Total Protein 6.6, Albumin 3.5, Globulin 3.0, Albumin/Globulin Ratio 1.2 07/08/18 08:15: WBC 8.0 D, RBC 3.90, Hgb 11.2 L, Hct 35.6 L, MCV 91.3, MCH 28.7, MCHC 31.5, RDW 17.1 H, Plt Count 294, MPV 8.7, Gran % 47.1 L, Lymph % (Auto) 41.4 H, [place] % (Auto) 9.1 H, Eos % (Auto) 2.0, Baso % (Auto) 0.4, Gran # 3.77, Lymph # (Auto) 3.3, [place] # (Auto) 0.7 H, Eos # (Auto) 0.2, Baso # (Auto) 0.03 07/04/18 07:25: Thyroid Stim Immunoglob 96, Thyroperoxidase Ab <1 07/04/18 07:25: Free T4 0.82, Thyroxine (T4) 6.9, TSH 3rd Generation 1.22 07/04/18 07:25: Sodium 139, Potassium 4.1, Chloride 109 H, Carbon Dioxide 25, Anion Gap 9 L, BUN 19, Creatinine 0.8, Est GFR ( Amer) > 60, Est GFR (No n-Af Amer) > 60, Random Glucose 94, Calcium 8.8, Total Bilirubin 0.1 L, AST 20, ALT 22, Alkaline Phosphatase 76, Total Protein 6.9, Albumin 3.7, Globulin 3.2, Albumin/Globulin Ratio 1.2 07/02/18 06:40: Free T4 0.93, TSH 3rd Generation 1.93 07/01/18 06:00: Sodium 139, Potassium 3.8, Chloride 112 H, Carbon Dioxide 23, Anion Gap 8 L, BUN 14, Creatinine 0.8, Est GFR ( Amer) > 60, Est GFR (Non-Af Amer) > 60, Random Glucose 88, Calcium 8.3 L 06/29/18 17:30: Urine Color Yellow, Urine Appearance Clear, Urine pH 6.0, Ur Specific [place] >= 1.030, Urine Protein Trace H, Urine Glucose (UA) Negative, Urine Ketones Negative, Urine Blood Trace-intact H, Urine Nitrate Negative, Urine Bilirubin Negative, Urine Urobilinogen 0.2, Ur Leukocyte Esterase Negative, Urine RBC 2 - 5, Urine WBC 0 - 2, Ur Epithelial Cells 3 - 4, Calcium Oxalate Crystal Mod, Urine Other Mucus, Urine HCG, Qual Negative 06/29/18 17:30: Urine Opiates Screen Positive H, Urine Methadone Screen Negative , Ur Barbiturates Screen Negative, Ur Phencyclidine Scrn Negative, Ur Amphetamines Screen Negative, U Benzodiazepines Scrn Positive H, U Oth Cocaine Metabols Positive H, U Cannabinoids Screen Negative 06/29/18 16:50: TSH 3rd Generation 1.07, Alcohol, Quantitative < 10 06/29/18 16:50: Salicylates < 1 L, Acetaminophen < 10.0 L 06/29/18 16:50: Sodium 142, Potassium 3.4 L, Chloride 109 H, Carbon Dioxide 23, Anion Gap 13, BUN 16, Creatinine 0.9, Est GFR ( Amer) > 60, Est GFR (Non- Af Amer) > 60, Random Glucose 89, Calcium 9.0, Magnesium 2.1, Total Bilirubin 0.3, AST 22, ALT 28, Alkaline Phosphatase 64, Total Protein 7.4, Albumin 4.1, Globulin 3.3, Albumin/Globulin Ratio 1.3 06/29/18 16:50: WBC 11.0, RBC 4.34, Hgb 12.8, Hct 39.3, MCV 90.6, MCH 29.5, MCHC 32.6, RDW 17.1 H, Plt Count 408, MPV 8.6, Gran % 67.0, Lymph % (Auto) 24.4, [place] % (Auto) 7.5 H, Eos % (Auto) 0.5 L, Baso % (Auto) 0.6, Gran # 7.37 H, Lymph # (Auto) 2.7, [place] # (Auto) 0.8 H, Eos # (Auto) 0.1, Baso # (Auto) 0.07 Vital Signs Temp Pulse Resp BP Pulse Ox 07/13/18 09:04 98.7 F 70 18 106/87 98 07/13/18 08:42 98.8 F 70 20 107/71 07/13/18 07:28 98.8 F 70 20 108/71 07/12/18 16:12 66 100/68 07/12/18 10:15 98 F 67 12 110/71 100 07/12/18 10:00 98 F 79 12 107/70 99 07/12/18 09:45 98 F 89 12 120/77 99 07/12/18 08:45 98.7 F 72 18 104/65 99 07/12/18 07:23 98.4 F 63 20 95/61 L 07/11/18 15:41 74 87/54 L 07/11/18 07:22 98.2 F 68 20 95/60 L 07/10/18 16:00 75 100/69 07/10/18 07:26 98.4 F 84 20 111/76 07/09/18 11:00 98.4 F 89 20 130/88 07/09/18 10:30 98.6 F 86 20 121/80 100 07/09/18 10:02 98.6 F 78 20 125/69 100 07/09/18 09:47 98.6 F 78 20 125/69 100 07/09/18 08:30 98.6 F 72 20 126/74 99 07/09/18 07:48 97.9 F 75 20 113/86 07/08/18 16:00 65 97/62 L 07/08/18 07:12 98.1 F 65 18 95/60 L 07/07/18 16:00 74 106/74 07/07/18 07:00 98.3 F 74 18 92/61 L 07/06/18 07:37 98.0 F 79 20 104/73 07/05/18 16:51 82 91/55 L 07/05/18 16:00 82 91/55 L 07/05/18 09:02 71 100/64 07/05/18 07:14 98.0 F 71 20 100/64 07/04/18 16:00 79 106/74 07/04/18 07:39 98.5 F 76 20 96/70 L 07/04/18 07:29 98.5 F 76 20 96/70 L 07/03/18 16:00 74 113/73 07/03/18 08:11 60 96/52 L 07/03/18 06:57 98.3 F 54 L 18 96/62 L 07/02/18 16:39 87 106/67 07/02/18 16:00 87 106/67 07/02/18 08:54 121/84 07/02/18 07:27 97.4 F L 85 20 121/84 07/01/18 16:19 120/70 07/01/18 07:38 98.1 F 67 20 100/69 06/30/18 15:36 83 122/86 06/30/18 06:42 98.7 F 83 18 106/70 06/29/18 22:45 18 06/29/18 20:00 97.9 F 81 18 129/91 H 06/29/18 19:03 98.1 F 86 18 98 06/29/18 18:45 98.1 F 86 18 110/83 98 06/29/18 16:09 98 F 87 18 109/73 98 Consultations:: List each consultation separately and include: 1. Reason for request. 2. Findings. 3. Follow-up Consultations: medical consult appreciated Endocrinology consult see notes for more detailed information Summary of Hospital Course include:: 1. Description of specific treatment plan utilized for patients during their course of treatmen. 2. Summarize the time- course for resolution of acute symptoms and/or regressed behaviors. 3. Describe issues identified and worked on during hospitalization. 4. Describe medication utilized. 5. Describe medical problems identified and treated. 6. Reassessment of suicide risk Summary of Hospital Course: Patient is a single 42-year-old female with a psychiatric history of Depression and anxiety (PTSD, NEMO, Panic symptoms), multiple psychiatric admiss ions most recently 2012 in [place] s/p overdose on Xanax requiring intubation, outpatient treatment with Dr. Ammon Candelaria x16 years, compliant with medications trazodone 400 mg HS, Xanax 2 mg po bid, Ambien 10 mg HS prn, Topamax 100 mg po TID who presented to the ER on 06/29/18 requesting psychiatric stabilization s/p relapse on crack a few months ago as well as occasional MJA and alcohol use. please see admission note for more detailed information. During this hospitalization patient will stabilize on the following medications: trazodone 400 mg HS for depression and insomnia effexor pt did not tolerated well because it affected pt's sleep paxil 40mg hs depression for anxiety seroquel 25mg po hs for mood stabilization Xanax 1 mg po qid for anxiety was advised to take if absolutely needed Ambien 10 mg HS prn insomnia Topamax was weaned off pt wanted to have ECT treatment, pt signed consent for it and had 3 BL treatments #1 ECT treatment 07/09/18 tolerated well #2 ECT treatment 07/11/18 tolerated well #3 ECT treatment 07/13/18 tolerated well pt had adequate seizure 28sec on charge 128, energy 17.7J, stat Imped 310 ohms, dyn. Imped 117 ohms, pulse width 0.5msec, frequency 20Hz, duration 8.000sec, current 800mA patient tolerated ECT treatment well, no memory problems, no confusion, patient is willing to continue ECT as outpatient. family meeting appreciated with mother 07/03/18ee notes for more detailed information Patient appears healthier to compare with the time of admission, more alert and nourished. Her facial scabs are healing well. pt reported that she feels "more relaxed, I feel better overall". pt tolerated meds well, no side effects observed or reported, AIMS 0, no EPS. Over the course of this hospitalization pt was attending groups, pt also had medication management, had therapeutic milieu. Overall pt improved significantly, pt's affect became brighter, pt was less depressed, has realistic future oriented plans, pt also does not appear to be psychotic, or anxious, pt was socially appropriate, no behavioral issues, pts insight improved as well and soon pt deemed to be ready for discharge. meeting with pt's mother took place 07/13/18, mother was appreciative, said "Juany looks great". At the time of the discharge pt denied been depressed, denied thoughts of harming self or others, denied psychotic symptoms, and pt does not appeared to be psychotic, denied been anxious, pt is not in imminent danger to self or others, pt was referred to outpatient program, information about follow up appointment, time and address provided to the pt, it is patient responsibility to follow up with as outpatient, PMD as well as specialists (see note for more detailed information). pt already has psychiatrist who is willing to accept pt back, but it is patient's choice, pt was educated about her options. In case pt will need to obtain results of studies pending at discharge pt was provided with contact information of Psychiatric Inpatient unit [phone] as well as Medical Record Department [phone]. Naltrexone treatment not indicated at this time. Counseling about smoking and alcohol cessation provided AA meetings as well as smoking cessation treatment program information was provided by the pt was provided with prescriptions for all of medications (please see medication reconciliation form) Pt was educated about safety plan in case of worsening of symptoms or in case of suicidal or homicidal ideation call 911 or go to the nearest ER, also was educated to take meds as prescribed and stay away from drugs, pt verbalized understanding. pt wants to have ECT as outpatient, requested for 07/16/18 - Diagnosis (1) Anxiety Status: Chronic Priority: High (2) Bipolar disorder Status: Chronic Priority: High (3) Crack cocaine use Status: Acute Priority: Medium - Final Diagnosis (DSM 5) Condition upon Discharge: IMPROVED Disposition: HOME/ ROUTINE Follow-up Treatment Plan: Over the course of this hospitalization pt was attending groups, pt also had me dication management, had therapeutic milieu. Overall pt improved significantly, pt's affect became brighter, pt was less depressed, has realistic future oriented plans, pt also does not appear to be psychotic, or anxious, pt was socially appropriate, no behavioral issues, pts insight improved as well and soon pt deemed to be ready for discharge. At the time of the discharge pt denied been depressed, denied thoughts of harming self or others, denied psychotic symptoms, and pt does not appeared to be psychotic, denied been anxious, pt is not in imminent danger to self or others, pt was referred to outpatient program, information about follow up appointment, time and address provided to the pt, it is patient responsibility to follow up with outpatient clinic, PMD as well as specialists (see note for more detailed information). In case pt will need to obtain results of studies pending at discharge pt was provided with contact information of Psychiatric Inpatient unit [phone] as well as Medical Record Department [phone]. Naltrexone treatment not indicated at this time. Counseling about smoking and alcohol cessation provided AA meetings as well as smoking cessation treatment program information was provided by the pt was provided with prescriptions for all of medications (please see medication reconciliation form) Pt was educated about safety plan in case of worsening of symptoms or in case of suicidal or homicidal ideation call 911 or go to the nearest ER, also was educated to take meds as prescribed and stay away from drugs, pt verbalized understanding. Prescriptions/Medication Reconciliation: ALPRAZolam [Xanax] 1 mg PO QID PRN #60 tab PRN Reason: Anxiety Atenolol [Tenormin] 25 mg PO BID #14 tab Benzocaine 20% [Orajel Pm Maximum Strength] 1 gm MT QID PRN #1 tube PRN Reason: tooth pain Docusate [Colace] 100 mg PO BID #14 cap Fluticasone Nasal [Flonase] 1 actuation NS DAILY #1 spr hydrOXYzine Pamoate [Vistaril] 50 mg PO Q8 PRN #45 cap PRN Reason: Anxiety Oxycodone HCl/Acetaminophen [Percocet 10-325 mg Tablet] 1 each PO TID 3 Days #10 tablet Pantoprazole [Protonix EC Tab] 40 mg PO DAILY #7 ect Paroxetine HCl [Paxil] 40 mg PO HS #14 tablet QUEtiapine [Seroquel] 25 mg PO HS #14 tab tiZANidine [Zanaflex] 4 mg PO TID PRN #21 tab PRN Reason: Muscle Spasm traZODone [Desyrel] 100 mg PO HS #14 tab Trazodone HCl 300 mg PO HS #14 tablet Zolpidem [Ambien] 10 mg PO HS PRN #14 tab PRN Reason: Insomnia - Smoking Cessation Smoking Cessation Medication prescribed: No Reason for not providing: pt does not want to - Antipsychotic Medications Pt discharged on 2 or more routine antipsychotic medications: No
--- NOTE | 2018-07-13 18:33 | PN ---
DATE: 07/13/2018SUBJECTIVE: This is a 42-year-old female with known history of subclinical hyperthyroidism, currently off medications at this time and has been admitted here for closer psychiatric evaluation and management of recent major depressive disorder and generalized anxiety state. She is undergoing electroconvulsive therapy as noted and given. She remains clinically and biochemically euthyroid at this time. LABORATORY DATA: Her latest chemistry showed a BUN of 18, sodium 138, potassium 4.4, chloride 106, CO2 of 29, glucose 87, and creatinine 0.7. Her thyroid study showed a TSH of 1.26 with a free T4 of 0.84. Her thyroid-stimulating immunoglobulin was initially reported as 96 and a repeat level of 89, both of which are elevated as noted and confirmatory for underlying autoimmune thyroiditis. ASSESSMENT AND PLAN: We will continue the serial thyroid studies to be obtained, but we will hold off the resumption of her medical therapy with Tapazole medications as noted. We will obtain serial chemistries and supplement accordingly as needed. We will follow. Ewa Weathers MD
[2018-07-16 15:40] VITALS: BMI 22.1
== END 2018-07-13 14:09 | disposition home or self-care (01) | DRG 885 ==
LOC: ED 16:08 → ERH 17:44 → PSYC 19:15
PROVIDERS: ADMIT Psychiatry & Neurology Psychiatry; ATTEND Psychiatry & Neurology Psychiatry
PROC: GZ3ZZZZ Medication Management (ICD-10-PCS; 2018-06-29)
PROC: GZB4ZZZ Other Electroconvulsive Therapy (ICD-10-PCS; principal; 2018-07-09 09:00)
PROC: GZB4ZZZ Other Electroconvulsive Therapy (ICD-10-PCS; 2018-07-12)
PROC: GZB4ZZZ Other Electroconvulsive Therapy (ICD-10-PCS; 2018-07-13)
DX: F31.9 Bipolar disorder, unspecified (principal); F14.20 Cocaine dependence, uncomplicated; B00.89 Other herpesviral infection; F41.1 Generalized anxiety disorder; J32.0 Chronic maxillary sinusitis; F40.01 Agoraphobia with panic disorder; E05.00 Thyrotoxicosis with diffuse goiter without thyrotoxic crisis or storm; E06.3 Autoimmune thyroiditis; F43.10 Post-traumatic stress disorder, unspecified; F10.10 Alcohol abuse, uncomplicated; F12.90 Cannabis use, unspecified, uncomplicated; E87.6 Hypokalemia; K59.00 Constipation, unspecified; K29.70 Gastritis, unspecified, without bleeding; K21.9 Gastro-esophageal reflux disease without esophagitis; F17.210 Nicotine dependence, cigarettes, uncomplicated; Z62.810 Personal history of physical and sexual abuse in childhood

== ENCOUNTER 2018-07-17 07:36 | Day surgery (SDC) | payer MEDICARE ==
[2018-07-17] MEDS ORDERED: Propofol 10 mg/ml Inj (20 ML) ONE (09:17)
[2018-07-17] MEDS ORDERED: Succinylcholine 200 mg/10 ml Inj IV ONE (09:19)
[2018-07-17] MEDS ORDERED: HYDROmorphone 0.5 mg/0.5 ml ISec IVP PRN (09:52)
[2018-07-17] MEDS ORDERED: Lactated Ringer's 1,000 ML IV SCH (10:00)
[2018-07-17] MEDS ORDERED: HYDROmorphone 0.5 mg/0.5 ml ISec ONE (10:01)
[2018-07-17 10:11] VITALS: TEMP 98
[2018-07-17 10:38] VITALS: RESP 18
[2018-07-17 11:19] VITALS: BP 106/67; PULSE 90; O2SAT 96
== END 2018-07-17 11:30 | disposition home or self-care (01) ==
LOC: SDS 07:36
PROVIDERS: ATTEND Psychiatry & Neurology Psychiatry
DX: F31.9 Bipolar disorder, unspecified (principal)
CPT/HCPCS: 84703; 90870; J0330; J1170; J2704; J7120

== ENCOUNTER 2018-07-19 08:07 | Day surgery (SDC) | payer MEDICARE ==
[2018-07-18 11:29] VITALS: BMI 21.4
[2018-07-19] MEDS ORDERED: Propofol 10 mg/ml Inj (20 ML) ONE (09:47)
[2018-07-19] MEDS ORDERED: Succinylcholine 200 mg/10 ml Inj IV ONE (09:48)
[2018-07-19 10:16] VITALS: RESP 18
[2018-07-19] MEDS ORDERED: HYDROmorphone 0.5 mg/0.5 ml ISec IVP PRN (10:20)
[2018-07-19] MEDS ORDERED: HYDROmorphone 0.5 mg/0.5 ml ISec ONE (10:38)
[2018-07-19 10:49] VITALS: O2SAT 94
[2018-07-19 11:14] VITALS: TEMP 98
[2018-07-19 11:45] VITALS: BP 120/80; PULSE 82
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
== END 2018-07-19 11:30 | disposition home or self-care (01) ==
LOC: SDS 08:07
PROVIDERS: ATTEND Psychiatry & Neurology Psychiatry
DX: F31.9 Bipolar disorder, unspecified (principal); F43.10 Post-traumatic stress disorder, unspecified; F17.210 Nicotine dependence, cigarettes, uncomplicated
CPT/HCPCS: 84703; 90870; J0330; J1170; J2001; J2405; J2704; J7120

== ENCOUNTER 2018-07-24 06:37 | Day surgery (SDC) | payer MEDICARE ==
[2018-07-18 11:29] VITALS: BMI 21.4
[2018-07-24 08:25] LABS: BASO # 0.06 K/mm3 (0.0-2.0); BASO % 0.8 % (0.0-3.0); EOS # 0.1 (0.0-0.7); GRAN % 56.4 % (50.0-68.0); HEMOGLOBIN 12.3 g/dL (12.0-16.0); LYMPH # 2.3 (1.2-3.4); LYMPH % 32.9 % (22.0-35.0); MEAN CELL VOLUME 90.2 fl (80.0-105.0); MEAN CORPUSCULAR HEMOGLOBIN 28.6 pg (25.0-35.0); MEAN CORPUSCULAR HGB CONC 31.7 g/dl (31.0-37.0); MEAN PLATELET VOLUME 8.1 fl (7.0-11.0); MONO # 0.6 (0.1-0.6); MONO % 8.9 % (1.0-6.0); RBC 4.3 10^6/uL (3.5-6.1); RED CELL DISTRIBUTION WIDTH 16.5 % (11.5-14.5); WHITE BLOOD COUNT 7.1 10^3/uL (4.5-11.0)
[2018-07-24 08:35] LABS: ALB/GLOB RATIO 1.2 (1.1-1.8); ALBUMIN 4.4 g/dL (3.0-4.8); ALT/SGPT 22 U/L (7-56); AST/SGOT 22 U/L (14-36); BLOOD UREA NITROGEN 15 mg/dL (7-21); GFR NON-AFRICAN AMERICAN > 60
[2018-07-24] MEDS ORDERED: Succinylcholine 200 mg/10 ml Inj IV ONE (11:12)
[2018-07-24] MEDS ORDERED: Propofol 10 mg/ml Inj (20 ML) ONE (11:13)
[2018-07-24] MEDS ORDERED: HYDROmorphone 0.5 mg/0.5 ml ISec IVP PRN (11:35)
[2018-07-24] MEDS ORDERED: Lactated Ringer's 1,000 ML IV SCH (11:45)
[2018-07-24] MEDS ORDERED: HYDROmorphone 0.5 mg/0.5 ml ISec ONE (11:51)
[2018-07-24 12:17] VITALS: BP 114/71; PULSE 67; RESP 20; TEMP 98.1; O2SAT 100
[2018-07-24] MEDS ORDERED: HYDROmorphone 1 mg/ml ISec IVP STA (12:40)
[2018-07-24] MEDS ORDERED: HYDROmorphone 1 mg/ml ISec ONE (12:45)
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
== END 2018-07-24 13:45 | disposition home or self-care (01) ==
LOC: SDS 06:37
PROVIDERS: ATTEND Psychiatry & Neurology Psychiatry
DX: F31.9 Bipolar disorder, unspecified (principal); F43.10 Post-traumatic stress disorder, unspecified; F15.20 Other stimulant dependence, uncomplicated
CPT/HCPCS: 36415; 80053; 84703; 85025; 90870; J0330; J1170 ×2; J2405; J2704; J7120 ×2

== ENCOUNTER → 2018-07-26 | Day surgery (SDC) | payer MEDICARE ==
[2018-07-18 11:29] VITALS: BMI 21.4
[~2018-07-26] MED LIST: HYDROmorphone 0.5 mg/0.5 ml ISec IVP PRN; HYDROmorphone 0.5 mg/0.5 ml ISec ONE; Lactated Ringer's 1,000 ML IV SCH; Propofol 10 mg/ml Inj (20 ML) ONE; Succinylcholine 200 mg/10 ml Inj IV ONE
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
[2018-07-26 10:46] VITALS: BP 129/82; PULSE 73; RESP 18; TEMP 98.2; O2SAT 98
== END | disposition home or self-care (01) ==
LOC: SDS 05:52
PROVIDERS: ATTEND Psychiatry & Neurology Psychiatry
DX: F31.9 Bipolar disorder, unspecified (principal); F17.210 Nicotine dependence, cigarettes, uncomplicated; F43.10 Post-traumatic stress disorder, unspecified
CPT/HCPCS: 84703; 90870; J0330; J1170; J2704; J7120

== ENCOUNTER 2018-08-02 09:09 | Day surgery (SDC) | payer MEDICARE ==
[2018-07-18 11:29] VITALS: BMI 21.4
[2018-08-02] MEDS ORDERED: Propofol 10 mg/ml Inj (20 ML) ONE (11:08)
[2018-08-02] MEDS ORDERED: Succinylcholine 200 mg/10 ml Inj IV ONE (11:15)
[2018-08-02] MEDS ORDERED: Oxycodone/Acetaminophen 10/325 mg Tab PO STA (11:44)
[2018-08-02] MEDS ORDERED: Sodium Chloride 0.9% 1,000 ML IV SCH (11:45)
[2018-08-02] MEDS ORDERED: Oxycodone/Acetaminophen 5/325 mg Tab ONE (12:06)
[2018-08-02] MEDS ORDERED: Oxycodone/Acetaminophen 5/325 mg Tab PO ONE (12:06)
[2018-08-02 12:27] VITALS: RESP 18; TEMP 98.7; O2SAT 96
[2018-08-02 12:56] VITALS: BP 108/70; PULSE 81
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
== END 2018-08-02 13:04 | disposition home or self-care (01) ==
LOC: SDS 09:09
PROVIDERS: ATTEND Psychiatry & Neurology Psychiatry
DX: F31.9 Bipolar disorder, unspecified (principal); F17.210 Nicotine dependence, cigarettes, uncomplicated

== ENCOUNTER 2018-08-16 08:23 | Day surgery (SDC) | payer MEDICARE, OTHER ==
[2018-07-18 11:29] VITALS: BMI 21.4
[2018-08-16] MEDS ORDERED: Propofol 10 mg/ml Inj (20 ML) ONE (11:35)
[2018-08-16] MEDS ORDERED: Succinylcholine 200 mg/10 ml Inj IV ONE (11:36)
[2018-08-16] MEDS ORDERED: Lactated Ringer's 1,000 ML IV SCH (12:00)
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
[2018-08-16 13:07] VITALS: RESP 20
[2018-08-16 13:47] VITALS: O2SAT 96
[2018-08-16 16:18] VITALS: BP 128/87; PULSE 84; TEMP 97.8
== END 2018-08-16 17:30 | disposition home or self-care (01) ==
LOC: SDS 08:23
PROVIDERS: ATTEND Psychiatry & Neurology Psychiatry
DX: F31.9 Bipolar disorder, unspecified (principal); F14.10 Cocaine abuse, uncomplicated; F17.210 Nicotine dependence, cigarettes, uncomplicated
CPT/HCPCS: 84703; 90870; J0330; J2704; J3010; J7120 ×2

== ENCOUNTER 2018-08-30 08:31 | Day surgery (SDC) | payer OTHER ==
[2018-07-18 11:29] VITALS: BMI 21.4
[2018-08-30 09:24] LABS: BARBITURATES, UR NEGATIVE (NEGATIVE); OPIATES, UR NEGATIVE (NEGATIVE)
[2018-08-30 09:39] LABS: BENZODIAZEPINES, UR POSITIVE (NEGATIVE); PHENCYCLIDINE, UR NEGATIVE (NEGATIVE)
[2018-08-30 09:39] LABS: BASO # 0.08 K/mm3 (0.0-2.0); EOS # 0.2 (0.0-0.7); EOS % 2.7 % (1.5-5.0); GRAN # 4.37 (1.4-6.5); GRAN % 52.9 % (50.0-68.0); HEMOGLOBIN 12.6 g/dL (12.0-16.0); LYMPH # 2.8 (1.2-3.4); LYMPH % 33.7 % (22.0-35.0); MEAN CELL VOLUME 90.8 fl (80.0-105.0); MEAN CORPUSCULAR HEMOGLOBIN 28.9 pg (25.0-35.0); MEAN CORPUSCULAR HGB CONC 31.8 g/dl (31.0-37.0); MEAN PLATELET VOLUME 8.7 fl (7.0-11.0); MONO # 0.8 (0.1-0.6); MONO % 9.7 % (1.0-6.0); RBC 4.36 10^6/uL (3.5-6.1); RED CELL DISTRIBUTION WIDTH 15.6 % (11.5-14.5); WHITE BLOOD COUNT 8.3 10^3/uL (4.5-11.0)
[2018-08-30 09:43] LABS: BLOOD UREA NITROGEN 22 mg/dL (7-21); CALCIUM 9.1 mg/dL (8.4-10.5); GFR NON-AFRICAN AMERICAN > 60
[2018-08-30] MEDS ORDERED: Propofol 10 mg/ml Inj (20 ML) ONE (11:10)
[2018-08-30] MEDS ORDERED: Succinylcholine 200 mg/10 ml Inj IV ONE (11:35)
[2018-08-30] MEDS ORDERED: Lactated Ringer's 1,000 ML IV SCH (11:45)
[2018-08-30 12:28] VITALS: TEMP 98.3
[2018-08-30 15:25] VITALS: BP 111/78; PULSE 88; RESP 18; O2SAT 98
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
--- NOTE | 2018-08-31 09:11 | CARD ---
APPROVED REPORT Date of service: 08/30/2018 EKG Measurement Heart [id number] <Conclusion> Normal sinus rhythm Prolonged QT Abnormal ECG
== END 2018-08-30 15:45 | disposition home or self-care (01) ==
LOC: SDS 08:31
PROVIDERS: ATTEND Psychiatry & Neurology Psychiatry
DX: F31.9 Bipolar disorder, unspecified (principal); E05.90 Thyrotoxicosis, unspecified without thyrotoxic crisis or storm; F14.20 Cocaine dependence, uncomplicated; F60.3 Borderline personality disorder
CPT/HCPCS: 36415; 80048; 84703; 85025; 90870; 93005; G0480 ×8; J0330; J2704; J3010; J7120 ×2

== ENCOUNTER 2018-08-30 15:44 | Inpatient (IN) | payer OTHER ==
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
[2018-08-30 16:05] VITALS: BMI 20.5
[2018-08-30 16:26] LABS: BASO # 0.05 K/mm3 (0.0-2.0); BASO % 0.6 % (0.0-3.0); EOS # 0.3 (0.0-0.7); GRAN # 4.08 (1.4-6.5); GRAN % 47.2 % (50.0-68.0); HEMOGLOBIN 12.4 g/dL (12.0-16.0); LYMPH # 3.5 (1.2-3.4); LYMPH % 40.9 % (22.0-35.0); MEAN CORPUSCULAR HEMOGLOBIN 29.2 pg (25.0-35.0); MEAN CORPUSCULAR HGB CONC 31.7 g/dl (31.0-37.0); MEAN PLATELET VOLUME 8.5 fl (7.0-11.0); MONO # 0.7 (0.1-0.6); MONO % 8.3 % (1.0-6.0); RBC 4.25 10^6/uL (3.5-6.1); RED CELL DISTRIBUTION WIDTH 15.7 % (11.5-14.5); WHITE BLOOD COUNT 8.6 10^3/uL (4.5-11.0)
[2018-08-30 16:36] LABS: ACETAMINOPHEN < 10.0 ug/ml (10.0-20.0); ALB/GLOB RATIO 1.3 (1.1-1.8); ALBUMIN 4.2 g/dL (3.0-4.8); ALT/SGPT 18 U/L (7-56); AST/SGOT 19 U/L (14-36); BLOOD UREA NITROGEN 22 mg/dL (7-21); CALCIUM 9.1 mg/dL (8.4-10.5); GFR NON-AFRICAN AMERICAN 54; SALICYLATE < 1 mg/dL (2.0-20.0)
[2018-08-30 16:37] VITALS: O2SAT 100
[2018-08-30 16:38] LABS: URINE APPEARANCE CLEAR (CLEAR); URINE BILIRUBIN NEGATIVE (NEGATIVE); URINE BLOOD SMALL (NEGATIVE); URINE COLOR YELLOW (YELLOW); URINE GLUCOSE (UA) NEGATIVE (NEGATIVE); URINE LEUKOCYTE ESTERASE NEGATIVE Leu/uL (NEGATIVE); URINE PROTEIN NEGATIVE mg/dL (<30 mg/dL); URINE UROBILINOGEN 0.2 E.U./dL (<1 E.U./dL)
[2018-08-30 16:52] LABS: BARBITURATES, UR NEGATIVE (NEGATIVE)
[2018-08-30] MEDS ORDERED: Oxycodone/Acetaminophen 5/325 mg Tab PO STA (16:52)
[2018-08-30 16:53] LABS: BENZODIAZEPINES, UR POSITIVE (NEGATIVE); OPIATES, UR NEGATIVE (NEGATIVE); PHENCYCLIDINE, UR NEGATIVE (NEGATIVE)
--- NOTE | 2018-08-30 17:44 | RAD ---
HISTORY: medical clearance, admission COMPARISON: Chest x-ray performed 06/29/18 TECHNIQUE: Chest, one view. FINDINGS: LUNGS: No focal consolidation. Please note that chest x-ray has limited sensitivity for the detection of pulmonary masses. PLEURA: No significant pleural effusion identified. No definite pneumothorax . CARDIOVASCULAR: The cardiomediastinal silhouette appears within normal limits of size. No significant atherosclerotic calcification present. OSSEOUS STRUCTURES: No acute osseous abnormality identified. VISUALIZED UPPER ABDOMEN: Unremarkable. OTHER FINDINGS: None. IMPRESSION: No focal consolidation.
[2018-08-30] MEDS: Oxycodone/Acetaminophen 10/325 mg Tab PO PRN (21:19)
--- NOTE | 2018-08-31 05:44 | PCM.BM ---
<Devyn Mercado - Last Filed: 08/31/18 05:42> Treatment Plan Problems - Problems identified on initial assessmt [id number] Date Initiated: 08/30/18 Time Initiated: 23:00 Assessment reference: NA Status: Active Altered sleep pattern Date Initiated: 08/30/18 Time Initiated: 23:00 Assessment reference: NA Status: Active Substance abuse Date Initiated: 08/30/18 Time Initiated: 23:00 Assessment reference: NA Status: Active Treatment assets and liabiliti Patient Assests: ADL independent, good support system Patient Liabilities: financial problems, substance abuse - Milieu Protocol Maintain good personal hygiene: daily Encourage regular showers, daily Remind patient to perform daily oral care, daily Assist patient to perform ADL's Maintain personal safety: daily Educate patient to report safety concerns to staff, daily Monitor environment for contraband/sharps Medication safety: Monitor for expected outcome, potential side effects: daily, Assess barriers to learning: daily, Assess readiness for medication education: daily Family Contact Family involvement: Patient does not wish Family/SO involvement - Goals for Treatment Patient goals for treatment: TO GET MY MEDICATIONS ON BOARD Discharge/Continuing Care - Education Needs Education Needs: Patient Medication, Patient Diagnosis/Disease Process, Patient Coping Skills - Discharge Discharge Criteria: Free of Suicidal thoughts, Normal sleep pattern <India Conley - Last Filed: 08/31/18 17:00> Family Contact Family involvement: Patient does not wish Family/SO involvement <Kaitlyn Damon - Last Filed: 09/03/18 08:32> - Diagnosis (1) Crack cocaine use Status: Acute Interventions: 08/31/18 14:06 Maintaining sobriety Relapse prevention Possible rehabilitation Motivational interviewing 12-step programs: AA meetings (2) Bipolar disorder Status: Chronic Interventions: 08/31/18 14:07 Psychoeducation pt is on ECT maintenance therapy Psychopharmacology/adjustment of medications as needed/ monitoring possible side effects Monitor blood level of mood stabilizers Evaluate pt on daily basis Compliance with medications and follow up appointments Suicide and homicide risk assessment and prevention, coping strategies, safety plan Relapse prevention Reduction of symptoms Improve functional status Family involvement As outpatient: cognitive behavioral therapy 09/03/18 08:32 <Vandana Stringer - Last Filed: 09/04/18 11:57>
[2018-08-31] MEDS: Fluticasone Nasal 50 mcg/Spray NS SCH (08:23)
[2018-08-31] MEDS: Pantoprazole 40 mg EC Tab PO SCH (08:24)
[2018-08-31] MEDS: Oxycodone/Acetaminophen 10/325 mg Tab PO PRN ×2 (08:25→16:35)
[2018-08-31 08:36] LABS: GLUCOSE,FASTING 96 mg/dL (65-110); HDL CHOLESTEROL 48 mg/dL (29-60)
[2018-08-31 08:46] LABS: LDL CHOLESTEROL 75 mg/dL (0-129)
--- NOTE | 2018-08-31 09:05 | CARD ---
APPROVED REPORT Date of service: 08/30/2018 EKG Measurement Heart [id number] <Conclusion> Normal sinus rhythm Prolonged QT Abnormal ECG
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
[2018-08-31] MEDS: Multivitamin With Minerals Tab PO SCH (18:36)
[2018-09-01] MEDS: Pantoprazole 40 mg EC Tab PO SCH (07:27)
[2018-09-01] MEDS: Oxycodone/Acetaminophen 10/325 mg Tab PO PRN ×3 (07:27→18:48)
[2018-09-01 07:32] VITALS: RESP 20
[2018-09-01] MEDS ORDERED: Promethazine 6.25 MG/5 ML CUP PO PRN (08:04)
[2018-09-01] MEDS: Multivitamin With Minerals Tab PO SCH (09:14)
[2018-09-01] MEDS: Fluticasone Nasal 50 mcg/Spray NS SCH (09:15)
[2018-09-01] MEDS: Petrolatum Oint Foilpak (5 gm) TOP SCH ×3 (09:20→20:47)
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
[2018-09-01] MEDS ORDERED: Magnesium Hydroxide Susp 30 ml UD PO PRN (16:30)
[2018-09-02] MEDS: Petrolatum Oint Foilpak (5 gm) TOP SCH ×5 (03:51→21:45)
[2018-09-02] MEDS: Pantoprazole 40 mg EC Tab PO SCH (06:20)
[2018-09-02] MEDS: Oxycodone/Acetaminophen 10/325 mg Tab PO PRN ×3 (07:31→19:04)
[2018-09-02] MEDS ORDERED: Magnesium Hydroxide Susp 30 ml UD PO ONE (08:10)
[2018-09-02] MEDS: Fluticasone Nasal 50 mcg/Spray NS SCH (09:30)
[2018-09-02] MEDS: Multivitamin With Minerals Tab PO SCH (09:35)
--- NOTE | 2018-09-02 09:52 | PN ---
DATE: 09/02/2018 LOCATION: The patient is in room 518, [facility], Behavioral Care Unit. SUBJECTIVE: A 42-year-old white female. The patient has long history of substance abuse (cocaine use). The patient also has history of smoking. The patient is treated for depression and bipolar disorder. PHYSICAL EXAMINATION GENERAL: The patient is seen sitting in solarium. She is comfortable, pleasant, answers to all questions. VITAL SIGNS: Pulse is 67, blood pressure 123/86 and respirations are 20. HEENT: The patient's head is normocephalic. NECK: Thyroid is not enlarged. Carotid pulses are present. LUNGS: Trachea is central. Breath sounds are vesicular. No adventitious sounds heard. HEART: Normal sinus rhythm. S1 and S2, present. No murmurs. ABDOMEN: Soft. Liver and spleen not palpable. CENTRAL NERVOUS SYSTEM: No focal deficit. The patient has past history of sinus disorder and erosion of the nasal septum. The patient also has history of having ECT in the past multiple times for behavioral disorder. MEDICATIONS: The patient is on Ambien 10 mg at bedtime, Ativan 2 mg every 6 hours p.r.n. The patient is on Colace 100 mg b.i.d. and trazodone 300 mg at night. The patient is on Diflucan 100 mg daily, Flonase for nasal allergy and nasal congestion. The patient gets Geodon p.r.n. for agitation and Pepcid 40 mg daily. The patient gets Percocet 10/325 one every 6 hours p.r.n. for pain. The patient is also getting cough medicine for respiratory symptoms of chronic cough. The patient's clinical condition clinically seem to be stable. The patient needs further care for the behavioral care disorder. We will followup medically and give the patient medication and we will treat the constipation problem the patient has. Makenna Martinez MD
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
[2018-09-03] MEDS: Pantoprazole 40 mg EC Tab PO SCH (07:10)
[2018-09-03] MEDS: Oxycodone/Acetaminophen 10/325 mg Tab PO PRN ×3 (07:10→18:29)
--- NOTE | 2018-09-03 08:11 | PN ---
DATE: 09/01/2018 SUBJECTIVE: She is in the [facility], admitted under Dr. Sahni. THE PATIENT HAS NO KNOWN ALLERGIES. She has history of behavioral disorder; has chronic depression. The patient also has chronic pain. PHYSICAL EXAMINATION: The patient shows; GENERAL: She is alert, but has some lesions on the lips. She says that she . VITAL SIGNS: Pulse is 78, blood pressure 140/86, respirations are 20. The patient's O2 saturation is 100% on room air. LUNGS: Clear clinically. HEART: Normal sinus rhythm. S1 and S2 present. ABDOMEN: Soft. Liver and spleen not palpable. CENTRAL NERVOUS SYSTEM: No focal deficits. LABORATORY DATA: The patient's lab work; the white count is 8600. The patient's chemistry; the BUN is 22, creatinine 1.1. The patient's triglycerides are 121, cholesterol 139, and TSH 3.72 with normal range. MEDICATIONS: She is on Ambien 10 mg at night. The patient takes Ativan 2 mg p.r.n. for agitation; Colace 100 mg twice a day. The patient is on Desyrel 300 mg daily at night. The patient gets Flonase for nasal allergy. She is on the Geodon 20 mg every 6 hours p.r.n. The patient is on Paxil 40 mg at night, Percocet 1 tablet three times a day for pain. The patient is on Phenergan for cough. The patient is on pantoprazole 40 mg daily, Seroquel 50 mg at night, and multivitamin. PLAN: We will continue current management. We will follow up. She will get lip balm for the dry lips, and we will increase the Percocet to four times a day p.r.n. instead of three times a day. The patient requests an increase of medication for her pain . Makenna Martinez MD
[2018-09-03] MEDS: Fluticasone Nasal 50 mcg/Spray NS SCH (09:14)
[2018-09-03] MEDS: Multivitamin With Minerals Tab PO SCH (09:14)
[2018-09-03] MEDS: Petrolatum Oint Foilpak (5 gm) TOP SCH ×3 (10:32→21:20)
--- NOTE | 2018-09-03 11:37 | PN ---
DATE: 09/03/2018 SUBJECTIVE: The patient is admitted with depression, bipolar disorder, substance abuse. 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 The patient is seen this morning. She was asleep and woke up. She was seen to be alert, answers all questions. She is complaining of generalized aches and pains, pain in the back. The patient also has congestion and cough. PHYSICAL EXAMINATION VITAL SIGNS: Pulse is 104, blood pressure 142/90, respirations of 20 and temperature 98.2. HEENT: The patient's head is normocephalic. The face, there is improvement in the lip lesion, it is healing. LUNGS: Clear. HEART: Normal sinus rhythm. S1 and S2 present. No murmurs. ABDOMEN: Soft. Liver and spleen not palpable. CENTRAL NERVOUS SYSTEM: No focal deficits. The patient is able to ambulate. MEDICATIONS: List of medications consist of Ambien 10 mg at night. The patient is on Ativan. The patient is on Colace, Desyrel 400 mg at night. The patient is on Diflucan 100 mg daily, Flonase twice a day. The patient is on Geodon p.r.n. for agitation. The patient gets Paxil 40 mg daily, Percocet 1 tablet 10/325 mg every 6 hours, cough medicine p.r.n. for cough, pantoprazole 20 mg daily. LABORATORY DATA: The patient's lab work remains the same. The patient is clinically and medically is under observation. We will keep home medications, continue current management. The CBC shows 47.2 granulocytes, 40.9 lymphocytes. There is mild reversal of the lymphocyte count. Makenna Martinez MD
[2018-09-03 12:23] LABS: HEPATITIS B SURFACE AG Negative (NEGATIVE)
[2018-09-03 12:29] LABS: HEPATITIS A IGM NEGATIVE (NEGATIVE); HEPATITIS B CORE AB NEGATIVE (NEGATIVE)
[2018-09-03 12:40] LABS: HEPATITIS C ANTIBODY NEGATIVE (NEGATIVE)
[2018-09-03] MEDS: Cefpodoxime (Vantin) 200 mg Tab PO SCH (15:36)
--- NOTE | 2018-09-03 16:05 | PCM.PYCHPN ---
Psychiatric Progress Note - Psychiatric Progress Note Patient seen today, length of contact: 25 min Patient Chief Complaint: "I want to find out why I am punishing myself?, I am not a drug addict, I just want to hurt myself, that is why I relapsed on drugs" Problems Identified/Issues Discussed: Suicide/ homicide prevention, past psychiatric h/o, current psychiatric sympt oms, medical problems, risk/benefits and alternatives of medications, medications compliance, coping strategies, substance abuse h/o, relapse prevention, importance of follow up with psychiatrist and therapist, discharge plan. Medical Problems: Please see HPI Diagnostic Results: 08/30/18 16:19 08/30/18 16:19 Lab Results 09/03/18 08:00: Hepatitis A IgM Ab Negative, Hep Bs Antigen Negative, Hep B Core IgM Ab Negative, Hepatitis C Antibody Negative 08/31/18 08:00: HIV 1&2 Ag/Ab, 4th Gen Nonreactive 08/31/18 08:00: RPR Nonreactive 08/31/18 08:00: TSH 3rd Generation 0.72 08/31/18 08:00: Fasting Glucose 96, Triglycerides 121, Cholesterol 139, LDL Cholesterol Direct 75, HDL Cholesterol 48 08/30/18 16:20: Urine Opiates Screen Negative, Urine Methadone Screen Negative, Ur Barbiturates Screen Negative, Ur Phencyclidine Scrn Negative, Ur Amphetamines Screen Negative, U Benzodiazepines Scrn Positive H, U Oth Cocaine Metabols Positive H, U Cannabinoids Screen Negative 08/30/18 16:20: Urine Color Yellow, Urine Appearance Clear, Urine pH 6.0, Ur Specific [place] >= 1.030, Urine Protein Negative, Urine Glucose (UA) Negative, Urine Ketones Negative, Urine Blood Small H, Urine Nitrate Negative, Urine Bilirubin Negative, Urine Urobilinogen 0.2, Ur Leukocyte Esterase Negative, Urine RBC 1 - 3 H, Urine WBC None, Ur Epithelial Cells 1 - 3 08/30/18 16:19: WBC 8.6, RBC 4.25, Hgb 12.4, Hct 39.1, MCV 92.0, MCH 29.2, MCHC 31.7, RDW 15.7 H, Plt Count 374, MPV 8.5, Gran % 47.2 L, Lymph % (Auto) 40.9 H, [place] % (Auto) 8.3 H, Eos % (Auto) 3.0, Baso % (Auto) 0.6, Gran # 4.08, Lymph # (Auto) 3.5 H, [place] # (Auto) 0.7 H, Eos # (Auto) 0.3, Baso # (Auto) 0.05 08/30/18 16:19: Alcohol, Quantitative < 10 08/30/18 16:19: Salicylates < 1 L, Acetaminophen < 10.0 L 08/30/18 16:19: Sodium 140, Potassium 4.3, Chloride 104, Carbon Dioxide 30, Anion Gap 11, BUN 22 H, Creatinine 1.1, Est GFR ( Amer) > 60, Est GFR (Non-Af Amer) 54, Random Glucose 106, Calcium 9.1, Total Bilirubin 0.3, AST 19, ALT 18, Alkaline Phosphatase 71, Total Protein 7.4, Albumin 4.2, Globulin 3.2, Albumin/Globulin Ratio 1.3 Vital Signs Temp Pulse Resp BP Pulse Ox 09/03/18 07:00 98.2 F 104 H 20 142/90 09/02/18 16:00 90 126/82 09/02/18 07:00 98 F 67 20 123/86 09/01/18 15:45 87 113/83 09/01/18 07:31 98.2 F 78 20 139/86 08/31/18 05:13 19 08/30/18 20:33 98.2 F 78 18 128/75 100 08/30/18 19:37 80 18 130/60 100 08/30/18 16:27 98.4 F 87 18 109/78 100 DSM 5 Symptoms Update: shortly patient is a single 42-year-old female with a psychiatric history of Depression and anxiety (PTSD, NEMO, Panic symptoms), multiple psychiatric admissions most recently in 06/2018 at [facility], previously 2013 in [place] s/p overdose on Xanax requiring intubation, initially patient was followed up with Dr. Ammon Candelaria x16 years, but after last admission patient want to be followed up with Dr. Puentes at the [facility]. Patient was compliant with medications: Xanax 1 mg 4 times a day, Seroquel 25 mg at the nighttime, Paxil 40 mg at the nighttime, patient also was on Percocet, Ambien 10 mg at the nighttime, Flonase, patient relapsed on cocaine and crack, for past week patient used $400 worth of cocaine. Patient came for ECT treatment yesterday August 30, 2018, patient presented to be d epressed, was not able to contract for safety, patient was making statements such as "I do not know I cannot guarantee that I will not hurt myself if you discharge me", after ECT treatment patient was sent to ER for psychiatric admission. Patient requires further evaluation and stabilization and medication adjustment. Patient is very familiar to this rfp writer from recent hospitalization as well as ECT treatment. Patient was seen today at the morning time at the treatment team meeting, patient presented with some improvement of personal hygiene, fair ADLs looks much older than her chronological age. As per staff report, patient is not patient, at times rude, disrespectful, at times splitting staff. At the same time later on patient would apologize, impulses are still unpredictable. Patient is still crashing from cocaine abuse, patient was advised if she will continue using drugs this rfp writer will be not able to provide ECT treatment for her any longer. Patient agreed with that plan. So far patient tolerates medications well, no side effects observed or reported, aims 0, no EPS. Patient had spike a fever today, primary care team notified, ECT postponed it. Impression: Medication Change: Yes (Paxil increased) Medical Record Reviewed: Yes Consults ordered or reviewed: Medical consult appreciated Mental Status Examination - Cognitive Function Orientation: Person, Place, Situation, Time Attention: WNL Concentration: WNL Association: WNL Fund of Knowledge: WNL - Mood Mood: Depressed ("I am little better"), Anxious - Affect Affect: Constricted (labile, irritable at times) - Formal Thought Process Formal Thought Process: No Impairment - Suicidal Ideation Suicidal Ideation: No - Homicidal Ideation Homicidal Ideation: No Goal/Treatment Plan - Goal/Treatment Plan Need for Continued Stay: Remain at risks for inpatient hospitalization, Severe depression anxiety, Discharge may exacerbated symptoms, Severe functional impairment Progress Toward Problem(s) and Goals/Treatment Plan: Milieu/structure/supportive therapy Medical consult was called Dr.Wignarajan ARZATE consultation for discharge plan and social issues Med management: We will continue Paxil 50 mg at the nighttime for depression and anxiety Seroquel 50 mg at the nighttime for mood stabilization Ambien will be continued 10 mg at the nighttime for insomnia Xanax 1 mg 4 times a day as needed for anxiety will be continued This rfp writer confirmed patient's medication list [facility] [place] [phone] Tramadol 50 mg twice a day resumed Percocet 10/325 every 8 hours resumed Flexeril 4 milligrams twice a day resumed trazodone 400mg po hs for depression/insomnia pt said that her family visited her over the weekend Follow up on labs Will monitor closely Pt was educated about risk/benefits and alternatives of medications, coping strategies (safety plan, suicide prevention), relapse prevention, importance of follow up with psychiatrist and therapist, stay away from drugs/alcohol/smoking Estimated Date of D/C: 09/06/18
[2018-09-04] MEDS: Oxycodone/Acetaminophen 10/325 mg Tab PO PRN ×3 (00:26→12:21)
[2018-09-04] MEDS: Petrolatum Oint Foilpak (5 gm) TOP SCH ×2 (04:09→08:15)
[2018-09-04 05:10] LABS: PH,URINE 6.5 (4.7-8.0); URINE BILIRUBIN NEGATIVE (NEGATIVE); URINE BLOOD SMALL (NEGATIVE); URINE GLUCOSE (UA) NEGATIVE (NEGATIVE); URINE LEUKOCYTE ESTERASE NEGATIVE Leu/uL (NEGATIVE); URINE PROTEIN NEGATIVE mg/dL (<30 mg/dL); URINE UROBILINOGEN 0.2 E.U./dL (<1 E.U./dL)
[2018-09-04 05:24] LABS: URINE APPEARANCE CLEAR (CLEAR); URINE COLOR YELLOW (YELLOW)
[2018-09-04 05:40] LABS: URINE BACTERIA FEW /hpf; URINE WBC 0 - 2 /hpf (0-6)
[2018-09-04] MEDS: Pantoprazole 40 mg EC Tab PO SCH (05:54)
[2018-09-04 07:24] VITALS: BP 104/68; PULSE 83; TEMP 98.9
--- NOTE | 2018-09-04 08:42 | RAD ---
Date of service: 09/04/2018 HISTORY: rule out pneumonia COMPARISON: Portable chest 06/29/2018. TECHNIQUE: Chest PA and lateral FINDINGS: LUNGS: No active pulmonary disease. PLEURA: No significant pleural effusion identified. No pneumothorax apparent. CARDIOVASCULAR: No aortic atherosclerotic calcification present. Normal cardiac size. No pulmonary vascular congestion. OSSEOUS STRUCTURES: No significant abnormalities. VISUALIZED UPPER ABDOMEN: Normal. OTHER FINDINGS: None. IMPRESSION: No interval acute cardiopulmonary disease appreciated.
[2018-09-04] MEDS: Cefpodoxime (Vantin) 200 mg Tab PO SCH (08:47)
[2018-09-04] MEDS: Multivitamin With Minerals Tab PO SCH (08:47)
[2018-09-04] MEDS: Fluticasone Nasal 50 mcg/Spray NS SCH (09:18)
[2018-09-04 09:19] LABS: BASO # 0.04 K/mm3 (0.0-2.0); BASO % 0.2 % (0.0-3.0); EOS # 0.2 (0.0-0.7); EOS % 0.6 % (1.5-5.0); GRAN # 18.11 (1.4-6.5); GRAN % 78.2 % (50.0-68.0); HEMOGLOBIN 12.6 g/dL (12.0-16.0); LYMPH # 2.5 (1.2-3.4); LYMPH % 10.8 % (22.0-35.0); MEAN CELL VOLUME 91.9 fl (80.0-105.0); MEAN CORPUSCULAR HEMOGLOBIN 29.3 pg (25.0-35.0); MEAN CORPUSCULAR HGB CONC 31.9 g/dl (31.0-37.0); MEAN PLATELET VOLUME 8.3 fl (7.0-11.0); MONO # 2.4 (0.1-0.6); MONO % 10.2 % (1.0-6.0); RBC 4.3 10^6/uL (3.5-6.1); RED CELL DISTRIBUTION WIDTH 15.6 % (11.5-14.5); WHITE BLOOD COUNT 23.2 10^3/uL (4.5-11.0)
[2018-09-04 09:38] LABS: ALB/GLOB RATIO 1.2 (1.1-1.8); ALBUMIN 4.4 g/dL (3.0-4.8); ALT/SGPT 31 U/L (7-56); AST/SGOT 26 U/L (14-36); BLOOD UREA NITROGEN 16 mg/dL (7-21); CALCIUM 9.3 mg/dL (8.4-10.5); GFR NON-AFRICAN AMERICAN > 60
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
--- NOTE | 2018-09-04 10:26 | PN ---
DATE: 09/04/2018 LOCATION: The patient is in room 518, bed 1, Behavioral Care Unit, [facility], [facility]. SUBJECTIVE: The patient is seen this morning. She seemed to be tired and she spiked fever yesterday. She has evidence of sore throat. She was treated with penicillin. Throat culture is done. The patient had a chest x-ray ordered. The x-ray is not completed. The patient notes that blood cultures done. PHYSICAL EXAMINATION: GENERAL: The patient is conscious, rational, and oriented. VITAL SIGNS: This morning, the patient's vital signs this morning; pulse is 83, blood pressure 104/68, and temperature 98.9. The patient's respirations are 20. NECK: The thyroid is not enlarged. No lymphadenopathy. The patient has some minimal tenderness in the right area of the neck. LUNGS: The patient's lungs are clinically clear. HEART: Normal sinus rhythm. S1 and S2 present. ABDOMEN: Soft. No tenderness. CENTRAL NERVOUS SYSTEM: The patient is conscious, rational, and oriented. She has history of substance abuse and also history of depression and bipolar disorder. LABORATORY DATA: The patient's blood work done, not reported yet. She is going to have a CBC. The culture was taken of the throat that will be sent to the lab for testing. At this point, the patient seemed to have an upper respiratory infection with some infiltrate in the right side of the tonsil. The culture sensitivity test was done on that. MEDICATIONS: She is on Ambien, Ativan, Colace, Desyrel, Flonase, Geodon, Paxil, Percocet, Tylenol for fever, Phenergan with codeine syrup p.r.n. for cough, pantoprazole, Seroquel, Tamiflu, multivitamin, and Tylenol. ASSESSMENT AND PLAN: The patient was seen by the Infectious Disease. She is currently on doxycycline and Tamiflu; seemed to be improved early this morning. We will follow up . Makenna Martinez MD
[2018-09-04] MEDS ORDERED: Benzocaine/Menthol (Cepacol) Lozenge MT PRN (11:51)
--- NOTE | 2018-09-04 15:43 | PCM.PYCHDC ---
Mental Status Examination - Mental Status Examination Orientation: Person, Place, Situation, Time Memory: Intact Mood: Depressed Affect: Constricted Speech: Appropriate Attention: Poor Concentration: Poor Association: WNL Formal Thought Process: No Impairment Description of patient's judgement and insight: Insight into her mental illnesses fair but insight to her addiction to cocaine is poor Psychotic Thoughts and Behaviors: Patient denied visual hallucinations, patient denied auditory hallucinations, denied paranoia, pt does not appear to be psychotic. Suicidal Ideation: No Current Homicidal Ideation?: No Plan: Patient adamantly denied thoughts of harming himself or others, denied intent or plan. Discharge Summary - Discharge Note Reason for Hospitalization: Patient was admitted to the psychiatric inpatient unit for evaluation and stabilization of depressive symptoms, patient was not able to contract for saf ety, worsening of depression, relapsed on drugs. Psychiatric History (includes Medical, Family, Personal Hx): Psychoeducation Laboratory Data: Abnormal Lab Results 09/03/18 09/04/18 09/04/18 20:00 09:00 09:00 WBC 23.2 H D RBC 4.30 Hgb 12.6 Hct 39.5 MCV 91.9 MCH 29.3 MCHC 31.9 RDW 15.6 H Plt Count 251 MPV 8.3 Gran % 78.2 H Lymph % (Auto) 10.8 L [place] % (Auto) 10.2 H Eos % (Auto) 0.6 L Baso % (Auto) 0.2 Gran # 18.11 H Lymph # (Auto) 2.5 [place] # (Auto) 2.4 H Eos # (Auto) 0.2 Baso # (Auto) 0.04 Sodium 137 Potassium 4.4 Chloride 98 Carbon Dioxide 31 Anion Gap 12 BUN 16 Creatinine 0.9 Est GFR ( Amer) > 60 Est GFR (Non-Af Amer) > 60 Random Glucose 115 H Calcium 9.3 Total Bilirubin 0.3 AST 26 ALT 31 Alkaline Phosphatase 75 Total Protein 8.0 Albumin 4.4 Globulin 3.6 Albumin/Globulin Ratio 1.2 Urine Color Yellow Urine Appearance Clear Urine pH 6.5 Ur Specific [place] 1.010 Urine Protein Negative Urine Glucose (UA) Negative Urine Ketones Negative Urine Blood Small H Urine Nitrate Negative Urine Bilirubin Negative Urine Urobilinogen 0.2 Ur Leukocyte Esterase Negative Urine RBC 1 - 3 H Urine WBC 0 - 2 Ur Epithelial Cells 4 - 5 Urine Bacteria Few Consultations:: List each consultation separately and include: 1. Reason for request. 2. Findings. 3. Follow-up Consultations: Medical consult appreciated pt required to be transfer to the medical site for IV antibiotics Summary of Hospital Course include:: 1. Description of specific treatment plan utilized for patients during their course of treatmen. 2. Summarize the time- course for resolution of acute symptoms and/or regressed behaviors. 3. Describe issues identified and worked on during hospitalization. 4. Describe medication utilized. 5. Describe medical problems identified and treated. 6. Reassessment of suicide risk Summary of Hospital Course: shortly patient is a single 42-year-old female with a psychiatric history of Depression and anxiety (PTSD, NEMO, Panic symptoms), multiple psychiatric admissions most recently in 06/2018 at [facility], previously 2013 in [place] s/p overdose on Xanax requiring intubation, initially patient was followed up with Dr. Ammon Candelaria x16 years, but after last admission patient want to be followed up with Dr. Puentes at the [facility] [address]. Patient was compliant with medications: Xanax 1 mg 4 times a day, Seroquel 25 mg at the nighttime, Paxil 40 mg at the nighttime, patient also was on Percocet, Ambien 10 mg at the nighttime, Flonase, patient relapsed on cocaine and crack, for past week patient used $400 worth of cocaine. Patient came for ECT treatment yesterday August 30, 2018, patient presented to be depressed, was not able to contract for safety, patient was making statements such as "I do not know I cannot guarantee that I will not hurt myself if you discharge me", after ECT treatment patient was sent to ER for psychiatric admission. Patient requires further evaluation and stabilization and medication adjustment. Patient is very familiar to this sports writer from recent hospitalization as well as ECT treatment. Please see admission note for more detailed information 08/30/18 16:19 08/30/18 16:19 Lab Results 08/31/18 08:00: TSH 3rd Generation 0.72 08/31/18 08:00: Fasting Glucose 96, Triglycerides 121, Cholesterol 139, LDL Cholesterol Direct 75, HDL Cholesterol 48 08/30/18 16:20: Urine Opiates Screen Negative, Urine Methadone Screen Negative, Ur Barbiturates Screen Negative, Ur Phencyclidine Scrn Negative, Ur Amphetamines Screen Negative, U Benzodiazepines Scrn Positive H, U Oth Cocaine Metabols Positive H, U Cannabinoids Screen Negative 08/30/18 16:20: Urine Color Yellow, Urine Appearance Clear, Urine pH 6.0, Ur Specific [place] >= 1.030, Urine Protein Negative, Urine Glucose (UA) Negative, Urine Ketones Negative, Urine Blood Small H, Urine Nitrate Negative, Urine Bilirubin Negative, Urine Urobilinogen 0.2, Ur Leukocyte Esterase Negative, Urine RBC 1 - 3 H, Urine WBC None, Ur Epithelial Cells 1 - 3 08/30/18 16:19: WBC 8.6, RBC 4.25, Hgb 12.4, Hct 39.1, MCV 92.0, MCH 29.2, MCHC 31.7, RDW 15.7 H, Plt Count 374, MPV 8.5, Gran % 47.2 L, Lymph % (Auto) 40.9 H, [place] % (Auto) 8.3 H, Eos % (Auto) 3.0, Baso % (Auto) 0.6, Gran # 4.08, Lymph # (Auto) 3.5 H, [place] # (Auto) 0.7 H, Eos # (Auto) 0.3, Baso # (Auto) 0.05 08/30/18 16:19: Alcohol, Quantitative < 10 08/30/18 16:19: Salicylates < 1 L, Acetaminophen < 10.0 L 08/30/18 16:19: Sodium 140, Potassium 4.3, Chloride 104, Carbon Dioxide 30, Anion Gap 11, BUN 22 H, Creatinine 1.1, Est GFR ( Amer) > 60, Est GFR (Non-Af Amer) 54, Random Glucose 106, Calcium 9.1, Total Bilirubin 0.3, AST 19, ALT 18, Alkaline Phosphatase 71, Total Protein 7.4, Albumin 4.2, Globulin 3.2, Albumin/Globulin Ratio 1.3 Vital Signs Temp Pulse Resp BP Pulse Ox 08/31/18 05:13 19 08/30/18 20:33 98.2 F 78 18 128/75 100 08/30/18 19:37 80 18 130/60 100 08/30/18 16:27 98.4 F 87 18 109/78 100 Patient was relatively stabilized on the following medications, Paxil 50 mg at the nighttime for depression and anxiety Seroquel 50 mg at the nighttime for mood stabilization Ambien was continued 10 mg at the nighttime for insomnia Xanax 1 mg 4 times a day as needed for anxiety will be continued This sports writer confirmed patient's medication list [facility] pharmacy at [place] [phone] Tramadol 50 mg twice a day resumed Percocet 10/325 every 8 hours resumed Flexeril 4 milligrams twice a day resumed trazodone 400mg po hs for depression/insomnia Patient tolerated medications well, no side effects observed or reported, aims 0, no EPS Patient was seen by medical team, patient had spike a fever yesterday and leukocytosis, patient required emergency room transfer and then subsequently [facility] floor admission for IV antibiotics. Patient notified her family herself. We will follow-up and advise accordingly on the medical side. Time of transfer patient denied thoughts of harming herself or others, denied intent or plan, does not require to be on one-to-one observation. Treatment plan was discussed in details, patient is aware that the future in case of relapse on drugs, this sports writer will be not able to provide any treatment, patient was required to go to dual diagnosis program. - Diagnosis (1) Crack cocaine use Status: Acute Priority: Medium (2) Bipolar disorder Status: Chronic Priority: High - Final Diagnosis (DSM 5) Condition upon Discharge: STABLE Disposition: OTHER INSTITUTION Follow-up Treatment Plan: Patient was transferred to the medical floor uneventfully We will follow-up on the patient and advised to continue - Smoking Cessation Smoking Cessation Medication prescribed: No - Antipsychotic Medications Pt discharged on 2 or more routine antipsychotic medications: No
== END 2018-09-04 12:54 | disposition short-term general hospital (02) | DRG 885 ==
LOC: ED 15:44 → ERH 19:00 → PSYC 20:45
PROVIDERS: ADMIT Psychiatry & Neurology Psychiatry; ATTEND Psychiatry & Neurology Psychiatry
PROC: GZ3ZZZZ Medication Management (ICD-10-PCS; principal; 2018-08-30)
DX: F31.9 Bipolar disorder, unspecified (principal); R45.851 Suicidal ideations; R65.10 Systemic inflammatory response syndrome (SIRS) of non-infectious origin without acute organ dysfunction; F40.01 Agoraphobia with panic disorder; F43.10 Post-traumatic stress disorder, unspecified; F14.10 Cocaine abuse, uncomplicated; J32.9 Chronic sinusitis, unspecified; G89.29 Other chronic pain; I10 Essential (primary) hypertension; G47.00 Insomnia, unspecified; F17.210 Nicotine dependence, cigarettes, uncomplicated

== ENCOUNTER 2018-09-04 12:53 | Inpatient (IN) | payer OTHER ==
[2018-09-04] MEDS ORDERED: Cefepime IV 2 gm in NS 2 GM/100 ML BAG IVPB STA (13:30)
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
[2018-09-04 14:06] LABS: VENOUS BLOOD GAS BASE EXCESS 2.2 mmol/L (0.0-2.0); VENOUS BLOOD GAS PO2 197 mm/Hg (30-55); VENOUS BLOOD PH 7.37 (7.32-7.43)
[2018-09-04 14:21] LABS: INFLUENZA A B NEGATIVE FOR FLU A/B (NEGATIVE)
[2018-09-04] MEDS: HYDROmorphone 2 mg/ml ISec IVP PRN ×2 (17:06→20:52)
[2018-09-04 22:40] VITALS: BMI 18.2
[2018-09-04] MEDS ORDERED: Influenza Vaccine 60 mcg/0.5 mL SYR (4YR UP) IM ONE (22:40)
[2018-09-04] MEDS ORDERED: Pneumococcal 23-Valent Vaccine IM ONE (22:40)
[2018-09-05] MEDS: Pantoprazole 40 mg EC Tab PO SCH (06:13)
[2018-09-05] MEDS ORDERED: Barium Sulfate Susp 2.1% w/v, 2.0% w/w 450 mL Bottle PO ONE (07:22)
[2018-09-05 07:53] LABS: BASO # 0.04 K/mm3 (0.0-2.0); BASO % 0.3 % (0.0-3.0); EOS # 0.4 (0.0-0.7); EOS % 2.8 % (1.5-5.0); GRAN # 9.41 (1.4-6.5); GRAN % 65.6 % (50.0-68.0); LYMPH # 2.8 (1.2-3.4); LYMPH % 19.2 % (22.0-35.0); MEAN CELL VOLUME 92.4 fl (80.0-105.0); MEAN CORPUSCULAR HEMOGLOBIN 28.7 pg (25.0-35.0); MEAN CORPUSCULAR HGB CONC 31.1 g/dl (31.0-37.0); MEAN PLATELET VOLUME 8.7 fl (7.0-11.0); MONO # 1.7 (0.1-0.6); MONO % 12.1 % (1.0-6.0); RBC 3.83 10^6/uL (3.5-6.1); RED CELL DISTRIBUTION WIDTH 15.6 % (11.5-14.5); WHITE BLOOD COUNT 14.3 10^3/uL (4.5-11.0)
[2018-09-05 08:01] LABS: ALB/GLOB RATIO 1.1 (1.1-1.8); ALBUMIN 3.9 g/dL (3.0-4.8); ALT/SGPT 32 U/L (7-56); AST/SGOT 31 U/L (14-36); BLOOD UREA NITROGEN 12 mg/dL (7-21); CALCIUM 8.9 mg/dL (8.4-10.5); GFR NON-AFRICAN AMERICAN > 60
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
[2018-09-05] MEDS: HYDROmorphone 2 mg/ml ISec IVP PRN ×4 (09:06→20:42)
[2018-09-05] MEDS: cefTRIAXone 1 gm 1 GM/100 ML BAG IVPB SCH (09:17)
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
--- NOTE | 2018-09-05 12:43 | CT ---
Date of service: 09/05/2018 PROCEDURE: CT Chest, Abdomen and Pelvis without intravenous contrast HISTORY: lung nodules, r/o pneumonia COMPARISON: None available. TECHNIQUE: Radiation dose: Total exam DLP = 611.35 mGy-cm. This CT exam was performed using one or more of the following dose reduction techniques: Automated exposure control, adjustment of the mA and/or kV according to patient size, and/or use of iterative reconstruction technique. FINDINGS: CT CHEST WITHOUT CONTRAST: LUNGS: There is a 4 mm nodule in the superior segment of the right lower lobe. No evidence of pneumonia MEDIASTINUM: Unremarkable. Normal caliber aorta and pulmonary arterial trunk. Normal size heart. LYMPH NODES: Unremarkable. PLEURA: Unremarkable. No pneumothorax. No pleural fluid. BONES: Unremarkable. OTHER FINDINGS: None. CT ABDOMEN AND PELVIS: LIVER: Unremarkable. No gross lesion or ductal dilatation. GALLBLADDER AND BILE DUCTS: Unremarkable. PANCREAS: Unremarkable. No gross lesion or ductal dilatation. SPLEEN: Unremarkable. ADRENALS: Unremarkable. No mass. KIDNEYS AND URETERS: Unremarkable. No hydronephrosis. No solid mass. VASCULATURE: No aortic atherosclerotic calcification or mural plaque present. Unremarkable. No aortic aneurysm. BOWEL: Unremarkable. No obstruction. No gross mural thickening. Mild constipation APPENDIX: Normal appendix. PERITONEUM: Unremarkable. No free fluid. No free air. LYMPH NODES: Unremarkable. No enlarged lymph nodes. BLADDER: Unremarkable. REPRODUCTIVE: Unremarkable. BONES: Bilateral spondylolysis at L5 with mild spondylolisthesis OTHER FINDINGS: None. IMPRESSION: There is a 4 mm nodule in the superior segment of the right lower lobe. No evidence of pneumonia
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
[2018-09-06] MEDS: HYDROmorphone 2 mg/ml ISec IVP PRN ×3 (00:54→12:10)
[2018-09-06] MEDS: Pantoprazole 40 mg EC Tab PO SCH (08:05)
--- NOTE | 2018-09-06 08:14 | CP.PCM.PN ---
Subjective - Date & Time of Evaluation Date of Evaluation: 09/06/18 Time of Evaluation: 07:30 - Subjective Subjective: Patient is seen this morning in room 571 bed 1. She says that she is feeling much better. Objective - Vital Signs/Intake and Output Vital Signs (last 24 hours): Temp Pulse Resp BP Pulse Ox 97.3 F L 85 20 112/79 100 09/05/18 23:14 09/05/18 23:14 09/05/18 23:14 09/05/18 23:14 09/05/18 23:14 Intake and Output: 09/06/18 09/06/18 06:59 18:59 Intake Total 780 Balance 780 - Medications Medications: Current Medications Alprazolam (Xanax) 1 mg PO QID PRN; Protocol PRN Reason: Anxiety Last Admin: 09/05/18 16:59 Dose: 1 mg Docusate Sodium (Colace) 100 mg PO DAILY HOLLY Last Admin: 09/05/18 09:09 Dose: 100 mg Fluconazole (Diflucan) 100 mg PO DAILY HOLLY; Protocol Last Admin: 09/05/18 09:17 Dose: 100 mg Hydromorphone HCl (Dilaudid) 2 mg IVP Q4H PRN PRN Reason: Pain, severe (8-10) Last Admin: 09/06/18 08:05 Dose: 2 mg Hydroxyzine Pamoate (Vistaril) 50 mg PO Q8 PRN; Protocol PRN Reason: Anxiety Ceftriaxone Sodium (Rocephin 1 Gram Ivpb) 1 gm in 100 mls @ 100 mls/hr IVPB DAILY HOLLY; Protocol Last Admin: 09/05/18 09:17 Dose: 100 mls/hr Doxycycline Hyclate 100 mg/ (Sodium Chloride) 100 mls @ 100 mls/hr IVPB Q12 HOLLY; Protocol Last Admin: 09/05/18 21:11 Dose: 100 mls/hr Oseltamivir Phosphate (Tamiflu Cap) 75 mg PO BID HOLLY; Protocol Stop: 09/10/18 18:01 Last Admin: 09/05/18 16:59 Dose: 75 mg Pantoprazole Sodium (Protonix Ec Tab) 40 mg PO 0600 HOLLY Last Admin: 09/06/18 08:05 Dose: 40 mg Paroxetine HCl (Paxil) 50 mg PO HS HOLLY Last Admin: 09/05/18 21:24 Dose: 50 mg Quetiapine Fumarate (Seroquel) 50 mg PO HS HOLLY; Protocol Last Admin: 09/05/18 21:22 Dose: 50 mg Tizanidine HCl (Zanaflex) 4 mg PO TID PRN PRN Reason: Muscle spasm Last Admin: 09/05/18 21:23 Dose: 4 mg Trazodone HCl (Desyrel) 400 mg PO HS HOLLY Last Admin: 09/05/18 21:24 Dose: 400 mg Zolpidem Tartrate (Ambien) 5 mg PO HS PRN; Protocol PRN Reason: Insomnia Last Admin: 09/05/18 22:34 Dose: 5 mg - Labs Labs: 09/05/18 07:30 09/05/18 07:30 - Constitutional Appears: No Acute Distress - Head Exam Head Exam: ATRAUMATIC, NORMOCEPHALIC - Respiratory Exam Respiratory Exam: Clear to Ausculation Bilateral, NORMAL BREATHING PATTERN - Cardiovascular Exam Cardiovascular Exam: REGULAR RHYTHM, +S1, +S2 - GI/Abdominal Exam GI & Abdominal Exam: Soft, Normal Bowel Sounds. absent: Tenderness - Extremities Exam Extremities Exam: Normal Inspection - Neurological Exam Neurological Exam: Alert, Awake, Oriented x3 Assessment and Plan - Assessment and Plan (Free Text) Assessment: Pharyngitis/SIRS Major depression H/O drug abuse L5 spondylosis Plan: Patient is afebrile. WBC count decreased. CT chest abdomen and pelvis do not show any acute abnormalities. 4mm nodule is seen in the lung. Patient says she is aware of this from previous CT scan. CXR, blood cultures, and urine cultures are negative. Influenza, and strep are negative. Patient on doxycycline, and rocephin and tamiflu as per infectious disease. Patient has plans to go to [facility] tomorrow and is asking to be discharged. Discharge home if cleared by infectious disease. Behavioral treatment as per Dr. Sahni.
[2018-09-06 08:35] VITALS: BP 106/72; PULSE 72; RESP 18; TEMP 98; O2SAT 96
[2018-09-06] MEDS: cefTRIAXone 1 gm 1 GM/100 ML BAG IVPB SCH (09:22)
--- NOTE | 2018-09-06 13:13 | CP.PCM.PN ---
<Octavio Son - Last Filed: 09/06/18 13:13> Subjective - Date & Time of Evaluation Date of Evaluation: 09/06/18 Time of Evaluation: 07:00 - Subjective Subjective: Infectious disease progress note: Pt seen and examined at bedside. No acute events overnight. Patient states that she is feeling much better. still complains of mild sore throat. 12 Point ROS performed and neg other than stated above Objective - Vital Signs/Intake and Output Vital Signs (last 24 hours): Temp Pulse Resp BP Pulse Ox 98 F 72 18 106/72 96 09/06/18 06:00 09/06/18 06:00 09/06/18 06:00 09/06/18 06:00 09/06/18 06:00 Intake and Output: 09/06/18 09/06/18 06:59 18:59 Intake Total 780 Balance 780 - Medications Medications: Current Medications Alprazolam (Xanax) 1 mg PO QID PRN; Protocol PRN Reason: Anxiety Last Admin: 09/06/18 09:31 Dose: 1 mg Docusate Sodium (Colace) 100 mg PO DAILY HOLLY Last Admin: 09/06/18 09:22 Dose: 100 mg Fluconazole (Diflucan) 100 mg PO DAILY HOLLY; Protocol Last Admin: 09/06/18 09:22 Dose: 100 mg Hydromorphone HCl (Dilaudid) 2 mg IVP Q4H PRN PRN Reason: Pain, severe (8-10) Last Admin: 09/06/18 12:10 Dose: 2 mg Hydroxyzine Pamoate (Vistaril) 50 mg PO Q8 PRN; Protocol PRN Reason: Anxiety Ceftriaxone Sodium (Rocephin 1 Gram Ivpb) 1 gm in 100 mls @ 100 mls/hr IVPB DAILY HOLLY; Protocol Last Admin: 09/06/18 09:22 Dose: 100 mls/hr Doxycycline Hyclate 100 mg/ (Sodium Chloride) 100 mls @ 100 mls/hr IVPB Q12 HOLLY; Protocol Last Admin: 09/06/18 09:22 Dose: 100 mls/hr Oseltamivir Phosphate (Tamiflu Cap) 75 mg PO BID HOLLY; Protocol Stop: 09/10/18 18:01 Last Admin: 09/06/18 09:22 Dose: 75 mg Pantoprazole Sodium (Protonix Ec Tab) 40 mg PO 0600 HOLLY Last Admin: 09/06/18 08:05 Dose: 40 mg Paroxetine HCl (Paxil) 50 mg PO HS HOLLY Last Admin: 09/05/18 21:24 Dose: 50 mg Quetiapine Fumarate (Seroquel) 50 mg PO HS HOLLY; Protocol Last Admin: 09/05/18 21:22 Dose: 50 mg Tizanidine HCl (Zanaflex) 4 mg PO TID PRN PRN Reason: Muscle spasm Last Admin: 09/06/18 09:31 Dose: 4 mg Trazodone HCl (Desyrel) 400 mg PO HS HOLLY Last Admin: 09/05/18 21:24 Dose: 400 mg Zolpidem Tartrate (Ambien) 5 mg PO HS PRN; Protocol PRN Reason: Insomnia Last Admin: 09/05/18 22:34 Dose: 5 mg - Labs Labs: 09/05/18 07:30 09/05/18 07:30 - Constitutional Appears: No Acute Distress - Head Exam Head Exam: ATRAUMATIC, NORMOCEPHALIC - Eye Exam Eye Exam: EOMI - ENT Exam ENT Exam: Mucous Membranes Moist - Respiratory Exam Respiratory Exam: Clear to Ausculation Bilateral. absent: Rales, Wheezes - Cardiovascular Exam Cardiovascular Exam: REGULAR RHYTHM, +S1, +S2 - GI/Abdominal Exam GI & Abdominal Exam: Soft, Normal Bowel Sounds. absent: Tenderness - Neurological Exam Neurological Exam: Alert, Awake, Oriented x3 - Psychiatric Exam Psychiatric exam: Normal Mood - Skin Skin Exam: Dry, Warm Assessment and Plan - Assessment and Plan (Free Text) Assessment: 42F with PMHx of depression and anxiety presents with suicidal ideations to [facility] [place] admitted to the psychiatric floor. ID consulted for fevers and SIRS criteria with markedly elevated wbc. -WBC decreased to 14 yesterday -F/u CT abd/Pelvis - aware of her 4mm pulmonary nodule and will follow as an outpatient -Cont Rocephin and doxy, - upon discharge can go with Doxy and Vantin for 5 days -Cont Tamiflu -as outpatient cont to complete 5 days -Hepatitis panel,Influenza, and rapid strep all neg Case and plan was reviewed and discussed with Dr Qeuvedo. <Clyde Quevedo - Last Filed: 09/06/18 14:26> Objective - Vital Signs/Intake and Output Vital Signs (last 24 hours): Temp Pulse Resp BP Pulse Ox 98 F 72 18 106/72 96 09/06/18 06:00 09/06/18 06:00 09/06/18 06:00 09/06/18 06:00 09/06/18 06:00 Intake and Output: 09/06/18 09/06/18 06:59 18:59 Intake Total 780 Balance 780 - Labs Labs: 09/05/18 07:30 09/05/18 07:30 Assessment and Plan - Assessment and Plan (Free Text) Assessment: Infectious diseases Attending Physician Attestation Patient seen and examined, discussed with medical coding manager. I have reviewed the patient's history of present illness, past medical, social, personal and family histories, pertinent physical exam findings, course so far in this hospital admission, pertinent laboratory and imaging results. I agree with the above findings, assessment and plan. In addition, we can switch to PO Vantin and Doxycycline and complete 5 day course of Tamiflu for patient with SIRS, consider upper respiratory tract infection, R/O Influenza. Patient should follow up with PMD as outpatient. Discussed this with patient and she understands and acknowledges.
--- NOTE | 2018-09-06 14:59 | PN ---
DATE: 09/06/2018 SUBJECTIVE: The patient was seen and evaluated today on the medical side. Shortly, the patient was initially admitted to the psychiatric inpatient unit, needed to be transferred to the medical side for sepsis workup because white blood cells were climbing up and the patient had fever. Psychiatry team was following the patient up, has a sales consultant insurance right now. The patient was seen today. The patient presented very well. The patient has elevated mood, but not manic. The patient reports that she has future plans. She wants to go to [place] tomorrow. The patient reported that she feels fine. She sleeps fine. The patient denied being depressed. Denied feeling hopelessness or helplessness. The patient reported that she is willing to go to mental illness plus chemical addiction as well as [facility]. The patient also reported that she is adamant that she wants to stay sober and not willing and try her best not to relapse on cocaine crack. The patient reported that she is willing to go to AA meeting, NA meeting and information about [facility] dual diagnosis program was provided to the patient by social science analyst. The patient reported at present moment, the patient is feeling fine from the psychiatric standpoint as well as from the medical standpoint. The patient denied any psychotic symptoms and does not appear to be psychotic. The patient also denied thoughts of harming herself or others. Vital signs seems to be stable. Labs reviewed. MENTAL STATUS EXAM: The patient presented to be alert and oriented, pleasant, cooperative. Good eye contact. Mood described as I feel fine. Thank you very much for all of your help. Thought process was coherent and goal directed. Thought content, the patient denied visual, auditory, tactile hallucinations. Denied paranoid ideation. The patient does not appear to be psychotic or depressed. The patient adamantly denied thoughts of killing herself or others. Insight and judgment seems to be improving. Impulses are well controlled. IMPRESSION: As per history, the patient has bipolar disorder. The patient also has history of cocaine addiction. Please see previous notes for more detailed information. PLAN: At present moment, the patient does not meet the criteria to go back to the psychiatric inpatient unit. The patient contracted for safety. The [facility] with [facility] Puentes. The patient has appointment with [facility] dual diagnosis program because the patient lives in [place]. The patient also requested to have prescriptions for all of her psychotropic medication. The patient reported that Paxil the patient still has at home and she wants to continue 40 mg. The patient also reported that she wants to have prescriptions of Xanax due to insurance company rules and regulations. The patient reported that she usually fill her prescription 2 mg twice a day and she will split medication and she will take 1 mg four times day. This card writer hand advised the patient to take medication as prescribed. The patient also has trazodone at home. The patient will continue Seroquel 50 mg at nighttime. So far, the patient tolerates medications well. No side effects observed or reported. The patient pose no imminent danger to self or others. Prescriptions will be given 2 week supply, one refill. The patient was provided phone number for [facility] as well as this card writer hand office phone number because patient is on ECT maintenance program. The patient is aware that if she would relapse on drugs, this card writer hand will be not able to provide her any ECT treatment, and the patient would be referred to [facility] program only. The patient agreed with that plan. Should you have any questions, give me a call back. Thank you very much for letting me participate in care of your patient. Kaitlyn Damon MD
== END 2018-09-06 14:21 | disposition home or self-care (01) | DRG 153 ==
LOC: ED 12:53 → ERH 13:32 → 5RSO 15:54
PROVIDERS: ADMIT Internal Medicine; ATTEND Internal Medicine
DX: J02.9 Acute pharyngitis, unspecified (principal); R65.10 Systemic inflammatory response syndrome (SIRS) of non-infectious origin without acute organ dysfunction; F14.20 Cocaine dependence, uncomplicated; R45.851 Suicidal ideations; M47.816 Spondylosis without myelopathy or radiculopathy, lumbar region; F31.9 Bipolar disorder, unspecified; F43.10 Post-traumatic stress disorder, unspecified; Z62.810 Personal history of physical and sexual abuse in childhood; F17.210 Nicotine dependence, cigarettes, uncomplicated

== ENCOUNTER 2018-11-01 08:06 | Day surgery (SDC) | payer MEDICARE ==
[2018-10-29 16:25] VITALS: BMI 26.6
[2018-11-01 08:55] LABS: BASO # 0.03 K/mm3 (0.0-2.0); BASO % 0.2 % (0.0-3.0); EOS % 0.1 % (1.5-5.0); HEMOGLOBIN 11.1 g/dL (12.0-16.0); LYMPH # 3.1 (1.2-3.4); LYMPH % 15.6 % (22.0-35.0); MEAN CELL VOLUME 86.8 fl (80.0-105.0); MEAN CORPUSCULAR HEMOGLOBIN 27.8 pg (25.0-35.0); MEAN PLATELET VOLUME 8.1 fl (7.0-11.0); MONO % 10.1 % (1.0-6.0); RED CELL DISTRIBUTION WIDTH 16.8 % (11.5-14.5); WHITE BLOOD COUNT 19.8 10^3/uL (4.5-11.0)
[2018-11-01 09:05] LABS: BLOOD UREA NITROGEN 16 mg/dL (7-21); CALCIUM 9.1 mg/dL (8.4-10.5); GFR NON-AFRICAN AMERICAN > 60
[2018-11-01 09:28] LABS: BARBITURATES, UR NEGATIVE (NEGATIVE); BENZODIAZEPINES, UR POSITIVE (NEGATIVE); OPIATES, UR POSITIVE (NEGATIVE); PHENCYCLIDINE, UR NEGATIVE (NEGATIVE)
[2018-11-01 09:30] VITALS: RESP 18
[2018-11-01] MEDS ORDERED: Ketamine 10 mg/ml Inj (20 ml) ONE (10:01)
[2018-11-01] MEDS ORDERED: Lactated Ringer's 1,000 ML IV SCH (10:30)
[2018-11-01] MEDS ORDERED: Oxycodone/Acetaminophen 5/325 mg Tab PO ONE ×2 (10:30→10:42)
[2018-11-01] MEDS ORDERED: Oxycodone/Acetaminophen 5/325 mg Tab ONE (10:44)
[2018-11-01 11:00] VITALS: TEMP 98.5
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
[2018-11-01 11:16] VITALS: BP 131/92; PULSE 94; O2SAT 98
== END 2018-11-01 11:20 | disposition home or self-care (01) ==
LOC: SDS 08:06
PROVIDERS: ATTEND Psychiatry & Neurology Psychiatry
DX: F31.9 Bipolar disorder, unspecified (principal); F41.1 Generalized anxiety disorder; F43.10 Post-traumatic stress disorder, unspecified; F14.21 Cocaine dependence, in remission; F17.210 Nicotine dependence, cigarettes, uncomplicated

== ENCOUNTER 2018-11-08 08:16 | Day surgery (SDC) | payer MEDICARE ==
[2018-10-29 16:25] VITALS: BMI 26.6
[2018-11-08 10:30] LABS: BARBITURATES, UR NEGATIVE (NEGATIVE); BENZODIAZEPINES, UR POSITIVE (NEGATIVE); OPIATES, UR NEGATIVE (NEGATIVE); PHENCYCLIDINE, UR NEGATIVE (NEGATIVE)
[2018-11-08] MEDS ORDERED: Propofol 10 mg/ml Inj (20 ML) ONE (10:45)
[2018-11-08] MEDS ORDERED: Ketamine 10 mg/ml Inj (20 ml) ONE (10:48)
[2018-11-08] MEDS ORDERED: Succinylcholine 200 mg/10 ml Inj IV ONE (10:50)
[2018-11-08] MEDS ORDERED: Sodium Chloride 0.9% 1,000 ML IV SCH (11:15)
[2018-11-08 11:40] VITALS: PULSE 89
[2018-11-08] MEDS ORDERED: Oxycodone/Acetaminophen 5/325 mg Tab PO ONE (11:50)
[2018-11-08 11:54] VITALS: RESP 18; TEMP 97.7; O2SAT 95
[2018-11-08] MEDS ORDERED: Oxycodone/Acetaminophen 5/325 mg Tab ONE (11:58)
[2018-11-08 12:11] VITALS: BP 127/72
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
== END 2018-11-08 12:00 | disposition home or self-care (01) ==
LOC: SDS 08:16
PROVIDERS: ATTEND Psychiatry & Neurology Psychiatry
DX: F31.9 Bipolar disorder, unspecified (principal); F41.9 Anxiety disorder, unspecified; F17.210 Nicotine dependence, cigarettes, uncomplicated
CPT/HCPCS: 84703; 90870; G0480 ×8; J0330; J2704; J7030

== ENCOUNTER 2018-11-15 09:37 | Day surgery (SDC) | payer MEDICARE ==
[2018-10-29 16:25] VITALS: BMI 26.6
[2018-11-15 10:13] LABS: BASO # 0.04 K/mm3 (0.0-2.0); BASO % 0.1 % (0.0-3.0); EOS # 0.2 (0.0-0.7); EOS % 0.8 % (1.5-5.0); HEMOGLOBIN 11.7 g/dL (12.0-16.0); LYMPH % 7.1 % (22.0-35.0); MEAN CELL VOLUME 88.1 fl (80.0-105.0); MEAN CORPUSCULAR HEMOGLOBIN 27.9 pg (25.0-35.0); MEAN CORPUSCULAR HGB CONC 31.7 g/dl (31.0-37.0); MEAN PLATELET VOLUME 8.4 fl (7.0-11.0); MONO # 2.1 (0.1-0.6); MONO % 7.2 % (1.0-6.0); PLATELET COUNT 270 10^3/uL (120.0-450.0); RBC 4.19 10^6/uL (3.5-6.1); RED CELL DISTRIBUTION WIDTH 16.6 % (11.5-14.5)
[2018-11-15 10:16] LABS: WHITE BLOOD COUNT 28.8 10^3/uL (4.5-11.0)
[2018-11-15 10:21] LABS: BLOOD UREA NITROGEN 18 mg/dL (7-21); CALCIUM 9.2 mg/dL (8.4-10.5); GFR NON-AFRICAN AMERICAN > 60
[2018-11-15 10:23] LABS: BARBITURATES, UR NEGATIVE (NEGATIVE); BENZODIAZEPINES, UR POSITIVE (NEGATIVE); OPIATES, UR POSITIVE (NEGATIVE); PHENCYCLIDINE, UR NEGATIVE (NEGATIVE)
[2018-11-15 10:47] LABS: ATYPICAL LYMPHOCYTE 1 % (0.0-0.0); BASOPHIL 1 % (0.0-1.0); LYMPHOCYTE 6 % (22.0-35.0); MONOCYTE 3 % (1.0-6.0); NEUTROPHIL 89 % (50.0-70.0)
[2018-11-15 10:48] LABS: OVALOCYTES SLIGHT
[2018-11-15] MEDS ORDERED: Propofol 10 mg/ml Inj (20 ML) ONE (11:51)
[2018-11-15] MEDS ORDERED: Midazolam 2 MG/2 ML VIAL ONE (12:02)
[2018-11-15] MEDS ORDERED: Succinylcholine 200 mg/10 ml Inj IV ONE (12:29)
[2018-11-15 14:46] VITALS: RESP 24; TEMP 98.7; O2SAT 96
[2018-11-15 14:47] VITALS: BP 105/68; PULSE 91
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
== END 2018-11-15 13:00 | disposition left against medical advice (07) ==
LOC: SDS 09:37
PROVIDERS: ATTEND Psychiatry & Neurology Psychiatry
DX: F31.9 Bipolar disorder, unspecified (principal); F17.210 Nicotine dependence, cigarettes, uncomplicated
CPT/HCPCS: 36415; 80048; 84703; 85025; 90870; G0480 ×8; J0330; J2250

== ENCOUNTER 2018-11-15 15:37 | Inpatient (IN) | payer MEDICARE ==
[2018-11-15 15:43] VITALS: BMI 26.9
[2018-11-15] MEDS ORDERED: Oxycodone/Acetaminophen 10/325 mg Tab PO STA (16:09)
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
[2018-11-15 16:44] LABS: URINE BILIRUBIN NEGATIVE (NEGATIVE); URINE BLOOD MODERATE (NEGATIVE); URINE GLUCOSE (UA) NEGATIVE (NEGATIVE); URINE LEUKOCYTE ESTERASE NEGATIVE Leu/uL (NEGATIVE); URINE PROTEIN TRACE mg/dL (<30 mg/dL); URINE UROBILINOGEN 0.2 E.U./dL (<1 E.U./dL)
[2018-11-15 16:46] LABS: URINE APPEARANCE CLEAR (CLEAR); URINE COLOR YELLOW (YELLOW)
[2018-11-15 16:47] LABS: BASO # 0.04 K/mm3 (0.0-2.0); BASO % 0.2 % (0.0-3.0); EOS # 0.1 (0.0-0.7); EOS % 0.4 % (1.5-5.0); HEMOGLOBIN 11.1 g/dL (12.0-16.0); LYMPH # 1.7 (1.2-3.4); LYMPH % 6.9 % (22.0-35.0); MEAN CELL VOLUME 88.5 fl (80.0-105.0); MEAN CORPUSCULAR HEMOGLOBIN 27.8 pg (25.0-35.0); MEAN CORPUSCULAR HGB CONC 31.4 g/dl (31.0-37.0); MEAN PLATELET VOLUME 8.7 fl (7.0-11.0); MONO # 1.5 (0.1-0.6); RBC 3.99 10^6/uL (3.5-6.1); RED CELL DISTRIBUTION WIDTH 16.8 % (11.5-14.5); WHITE BLOOD COUNT 24.8 10^3/uL (4.5-11.0)
[2018-11-15 17:07] LABS: ALBUMIN 3.6 g/dL (3.0-4.8); ALT/SGPT 12 U/L (7-56); AST/SGOT 33 U/L (14-36); BARBITURATES, UR NEGATIVE (NEGATIVE); BENZODIAZEPINES, UR POSITIVE (NEGATIVE); BLOOD UREA NITROGEN 19 mg/dL (7-21); CALCIUM 8.9 mg/dL (8.4-10.5); GFR NON-AFRICAN AMERICAN > 60; OPIATES, UR POSITIVE (NEGATIVE); PHENCYCLIDINE, UR NEGATIVE (NEGATIVE)
[2018-11-15 17:13] LABS: TROPONIN I < 0.01 ng/mL
[2018-11-15 17:22] LABS: FREE T4 1.41 ng/dL (0.78-2.19)
--- NOTE | 2018-11-15 17:22 | RAD ---
HISTORY: cough COMPARISON: Chest x-ray performed 09/04/18 TECHNIQUE: Chest, one view. FINDINGS: LUNGS: Mild left basilar atelectasis/infiltrate. Please note that chest x-ray has limited sensitivity for the detection of pulmonary masses. PLEURA: No significant pleural effusion identified. No definite pneumothorax . CARDIOVASCULAR: Heart size appears within normal limits. No significant atherosclerotic calcification present. OSSEOUS STRUCTURES: Degenerative changes. VISUALIZED UPPER ABDOMEN: Unremarkable. OTHER FINDINGS: None. IMPRESSION: Mild left basilar atelectasis/infiltrate.
--- NOTE | 2018-11-15 19:04 | CARD ---
APPROVED REPORT Date of service: 11/15/2018 EKG Measurement Heart [id number] <Conclusion> Sinus tachycardia Incomplete right bundle branch block NDSTT abnormalities Borderline ECG
[2018-11-15] MEDS ORDERED: Magnesium Hydroxide Susp 30 ml UD PO PRN (21:20)
[2018-11-15] MEDS ORDERED: ESZOPICLONE 3 MG PO SCH (22:00)
[2018-11-15] MEDS: Oxycodone/Acetaminophen 10/325 mg Tab PO PRN (22:27)
[2018-11-15] MEDS: Piperacill/Tazo 4.5gm in NS 4.5 GM/100 ML BAG IVPB SCH (22:29)
--- NOTE | 2018-11-16 00:25 | HP ---
DATE OF EXAM: 11/15/2018 LOCATION: I am seeing the patient in the emergency room at [facility] in [place]. HISTORY OF PRESENT ILLNESS: The patient was seen after having episode today while trying to have ECT treatment by the Behavioral Care Physician. The patient had a respiratory distress event and the patient was advised to be transferred to the emergency room for evaluation and treatment. The patient has a past history of depression and bipolar disorder. The patient also has a history of substance abuse in the past. Apparently, she denies taking any narcotics like cocaine, which she was using in the past. She has been on Percocet for pain and alprazolam. This shows up in the urine test. The patient has some nasal disorder from previous injury to the nasal septum. She has cough and congestion. The patient also had fever last night according to her history. PHYSICAL EXAMINATION: GENERAL: The patient is awake and alert. VITAL SIGNS: The patient's temperature 98.2, heart rate is 104, blood pressure 122/69, respirations 18, and O2 sat is 97% on room air. HEENT: The patient's head is normocephalic. Face, there is no pathology noted. NECK: Thyroid is not enlarged. JVP is flat. LUNGS: Trachea is central with bilateral rhonchi and occasional crepitations are heard. No localizing signs. HEART: Normal sinus rhythm. Sinus tachycardia. ABDOMEN: Soft. Liver and spleen not palpable. CENTRAL NERVOUS SYSTEM: The patient is conscious, rational, and oriented. She is excitable. No focal neurological deficits are noted. LABORATORY DATA: The patient's blood work shows white count is 24,800 and neutrophil count is 6.5. The patient has absolute neutrophils 21%. The patient's chemistry, blood sugar is 148. The patient's other chemical parameters are within normal range. Thyroid function studies, T4 is 1.41. TSH is 3.24, which is low. The patient's urine test has moderate blood in the urine. Chest x-ray does not show any localizing signs. The patient has acute respiratory infection associated with chronic sinusitis. MEDICATIONS: The patient was given doxycycline. Summary of medications, the patient was taking at home include Desyrel 400 mg at night. The patient was on Ultram 50 mg every 6 hours p.r.n. for pain, Zanaflex muscle relaxant for pain, and muscle spasms. The patient is on Prozac once daily. The patient is on Lunesta 3 mg at nighttime for sleep and Xanax 2 mg p.o. at bedtime. PLAN: The patient will be on a heart-healthy diet. We will have the Behavioral Care Physician to see the patient, Dr. Kaitlyn Damon. The patient will be seen by Infectious Disease service and also by neurologist. Her clinical condition seems to be stable at this point. Overall prognosis is guarded and we will followup. The patient had an episode, which was similar to syncope, but the patient has no past history of syncope and has not had any cardiac condition that would cause syncope, so the question has to be resolved; we will have the neurologist to make a consultation and advise. Makenna Martinez MD MTDNaya
[2018-11-16] MEDS ORDERED: Barium Sulfate Susp 2.1% w/v, 2.0% w/w 450 mL Bottle PO ONE (01:04)
[2018-11-16 07:13] LABS: BASO # 0.03 K/mm3 (0.0-2.0); BASO % 0.2 % (0.0-3.0); EOS # 0.4 (0.0-0.7); EOS % 2.7 % (1.5-5.0); HEMOGLOBIN 9.9 g/dL (12.0-16.0); LYMPH % 20.3 % (22.0-35.0); MEAN CELL VOLUME 89.8 fl (80.0-105.0); MEAN CORPUSCULAR HGB CONC 31.2 g/dl (31.0-37.0); MEAN PLATELET VOLUME 8.6 fl (7.0-11.0); MONO # 1.3 (0.1-0.6); MONO % 8.4 % (1.0-6.0); RBC 3.53 10^6/uL (3.5-6.1); RED CELL DISTRIBUTION WIDTH 17.1 % (11.5-14.5); WHITE BLOOD COUNT 14.8 10^3/uL (4.5-11.0)
[2018-11-16 08:23] LABS: IRON 23 ug/dL (45-180)
[2018-11-16 08:24] LABS: BLOOD UREA NITROGEN 19 mg/dL (7-21); CALCIUM 9.2 mg/dL (8.4-10.5); GFR NON-AFRICAN AMERICAN > 60
[2018-11-16 08:32] LABS: % IRON SATURATION 6 % (20-55); TOTAL IRON BINDING CAPACITY 394 ug/dL (265-497)
--- NOTE | 2018-11-16 10:37 | PN ---
DATE: 11/16/2018 SUBJECTIVE: She is in room 578, bed 2, [facility] in [place]. The patient was admitted yesterday with respiratory infection, possible infiltrate in the left lower lobe. The patient has history of manic depressive psychosis, substance abuse and sinusitis. PHYSICAL EXAMINATION GENERAL: This morning the patient is lying in bed, seems to be very affected by medication. She is able to answer questions. She has had the cough, which is persistent. VITAL SIGNS: The pulse is 92, blood pressure 120/70, respirations are 18 per minute and O2 sat is 98% on room air. HEENT: Head is normocephalic. NECK: Thyroid is not enlarged. JVP is flat. No lymphadenopathy. LUNGS: Breath sounds are equal bilaterally. No localizing signs. HEART: Normal sinus rhythm. S1 and S2 present. ABDOMEN: Soft. Liver and spleen not palpable. CENTRAL NERVOUS SYSTEM: No focal deficits. MEDICATIONS: The patient's medications consists of Zosyn and doxycycline. The patient is on Desyrel 400 mg daily, Ambien 5 mg at night. The patient gets Percocet 10/325 every 6 hours, Prozac 20 mg daily, Xanax 2 mg in the morning and 2 mg at night. DIET: Her diet is heart healthy diet. ASSESSMENT AND PLAN: She is waiting to have CT scan of the abdomen and pelvis and chest. The patient's CBC shows white count is down to 14,800 today. The differential shows significant neutrophil count with Staphylococcus cells. The patient will get Mycostatin today p.o. every 6 hours for prevention of fungal infection. The patient is prone to it, has been treated for that in the past. In view of the fact the patient has multiple antibiotics treatment. She needs prophylactic Mycostatin every 6 hours for now. Overall, prognosis is guarded. Condition is clinically stable. respiratory functions are okay, but symptoms are present. Makenna Martinez MD [employer]
[2018-11-16] MEDS: Oxycodone/Acetaminophen 10/325 mg Tab PO PRN ×2 (10:39→16:53)
--- NOTE | 2018-11-16 11:13 | CT ---
Date of service: 11/16/2018 CT chest, abdomen, and pelvis without IV contrast Indication: wbc 24 k Technique: Contiguous axial images of the chest, abdomen, and pelvis without oral or IV contrast. Coronal and Sagittal reformats generated and reviewed. This CT exam was performed using 1 or more of the following dose reduction techniques: Automated exposure control, adjustment of the MAA and/or kV according to patient size, and/or use of iterative reconstruction technique. Radiation dose: Total exam DLP = 977.27 MGy-cm. Comparison: CT chest, abdomen, pelvis without IV contrast performed 09/05/18 Findings: Visualized portions of the inferior thyroid gland appear unremarkable. The noncontrast mediastinal and hilar vascular structures appear grossly unremarkable. The heart appears within normal limits of size. Patchy nodular and ground-glass opacities within the mid to lower lung zone suspected to reflect multifocal pneumonia. The noncontrast liver, spleen, kidneys, pancreas, adrenal glands, and gallbladder appear unremarkable. The stomach is nondistended. Lack of oral contrast limits evaluation for bowel pathology. The bowel loops appear within normal limits of caliber without evidence of intestinal obstruction. The appendix appears within normal limits of caliber. No secondary signs of acute appendicitis. There is no definite free air. Uterus is present. The urinary bladder appears unremarkable. 6 mm anterolisthesis of L5 on S1. Impression: Patchy nodular and ground-glass opacities within the mid to lower lung zone suspected to reflect multifocal pneumonia. Recommend chest CT follow-up upon completion of therapy to demonstrate resolution of nodular pattern.
[2018-11-16] MEDS ORDERED: POLYETHYLENE GLYCOL 3350 17 GM/Dose PACKET PO SCH (11:30)
--- NOTE | 2018-11-16 11:35 | CP.PCM.APN ---
Subjective - Date & Time of Evaluation Date of Evaluation: 11/16/18 Time of Evaluation: 10:00 - Subjective Subjective: pt seen and examined at bedside. +cough but not able to expectorate any phlegm. Denies chest pain or shortness of breath. +constipation, per pt last BM was about 3 days ago. Denies abd pain, nausea, vomiting or diarrhea. Denies any urin calin symptoms. Objective - Vital Signs/Intake and Output Vital Signs (last 24 hours): Temp Pulse Resp BP Pulse Ox 98.2 F 92 H 18 126/70 98 11/15/18 15:43 11/15/18 18:30 11/15/18 23:12 11/15/18 18:30 11/15/18 18:30 Intake and Output: 11/16/18 11/16/18 06:59 18:59 Intake Total 360 Balance 360 - Medications Medications: Current Medications Alprazolam (Xanax) 2 mg PO [facility]; Protocol Last Admin: 11/15/18 22:27 Dose: 2 mg Clotrimazole (Mycelex Jose) 10 mg MT 5XD [facility] Last Admin: 11/16/18 10:32 Dose: 10 mg Fluoxetine HCl (Prozac) 20 mg PO DAILY [facility] Last Admin: 11/16/18 10:32 Dose: 20 mg Doxycycline Hyclate 100 mg/ (Sodium Chloride) 100 mls @ 100 mls/hr IVPB Q12 [facility]; Protocol Last Admin: 11/16/18 10:40 Dose: 100 mls/hr Piperacillin Sod/Tazobactam Sod (Zosyn 4.5 Gm In Ns 100ml) 4.5 gm in 100 mls @ 25 mls/hr IVPB Q8 [facility]; Protocol Stop: 11/22/18 22:01 Last Admin: 11/15/18 22:29 Dose: 25 mls/hr Magnesium Hydroxide (Milk Of Magnesia) 30 ml PO ONCE PRN PRN Reason: Constipation Last Admin: 11/15/18 22:27 Dose: 30 ml Oxycodone/Acetaminophen (Percocet 10/325 Mg Tab) 1 tab PO Q6H PRN PRN Reason: Pain, severe (8-10) Last Admin: 11/16/18 10:39 Dose: 1 tab Polyethylene Glycol (Miralax) 17 gm PO BID [facility] Trazodone HCl (Desyrel) 400 mg PO HS [facility] Last Admin: 11/15/18 22:28 Dose: 400 mg Zolpidem Tartrate (Ambien) 5 mg PO HS PRN; Protocol PRN Reason: Insomnia Last Admin: 11/16/18 01:37 Dose: 5 mg - Labs Labs: 11/16/18 06:45 11/16/18 06:45 - Constitutional Appears: No Acute Distress - Respiratory Exam Respiratory Exam: Clear to Ausculation Bilateral, NORMAL BREATHING PATTERN - Cardiovascular Exam Cardiovascular Exam: REGULAR RHYTHM - GI/Abdominal Exam GI & Abdominal Exam: Soft, Normal Bowel Sounds - Rectal Exam Rectal Exam: Deferred - Neurological Exam Neurological Exam: Alert, Awake, Oriented x3 Assessment and Plan - Assessment and Plan (Free Text) Assessment: Pt is a 43 y.o. w/ pmhx of substance use, anxiety and depression. She initially presented to [facility] [place] for outpatient ECT. Reviewed Dr. Sanhi's notes which stated that while pt is being prepped for ECT, she complained that she could not breathe and started to hit herself in chest. Pt desaturated and was subsequently intubated. Pt was unconscious for about 5 min and when she woke up she pulled out the tube and was able to maintain her airway. Afterwards, pt signed AMA. Pt came back to ED and stated that had a fever of 102, nausea and vomiting. Initial WBC was 24.8. Pt had been afebrile. Impressions Chest X-Ray 11/15/18 16:08 IMPRESSION: Mild left basilar atelectasis/infiltrate. Chest/Abdomen/Pelvis CT 11/16/18 21:50 Impression: Patchy nodular and ground-glass opacities within the mid to lower lung zone suspected to reflect multifocal pneumonia. Recommend chest CT follow-up upon completion of therapy to demonstrate resolution of nodular pattern. Plan: On Doxy IV/Zosyn per ID recs Neuro, Psych and ID on consult started on bowel regimen Meds per MAR Will continue to follow
[2018-11-16] MEDS ORDERED: Vancomycin 1gm in NS 250ml 1 GM/250 ML BAG IVPB SCH (13:45)
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
[2018-11-16] MEDS: Piperacill/Tazo 4.5gm in NS 4.5 GM/100 ML BAG IVPB SCH ×2 (15:08→23:15)
--- NOTE | 2018-11-16 15:27 | CON ---
DATE: 11/16/2018 CHIEF COMPLAINT: Syncope. HISTORY OF PRESENT ILLNESS: A 43-year-old woman with past medical history of substantial substance abuse, anxiety, depression, status post multiple treatment with the ECT, came usually in for another outpatient ECT with Dr. Sahni. The patient apparently who was begun to have issues with her breathing, felt like she could not breath and feeling paralyze and her chest and followed by syncopal event. She also had some chronic cough and fevers. No history of seizures. No history of meningitis. PAST MEDICAL HISTORY: . ALLERGIES: NO KNOWN DRUG ALLERGIES. FAMILY HISTORY: Noncontributory. SOCIAL HISTORY: No illicit drug use, smoking, or EtOH abuse. REVIEW OF SYSTEMS: A 12-point review of systems is negative except as per the HPI. MEDICATIONS: Reviewed by nurse's reconciliation sheet. NEURO EXAM: Not focal. Chest CT and abdomen showed a patchy nodular ground-glass opacity with mid to lower lung zone suspected for multifocal pneumonia and ID is on board. The patient is on doxycycline and Zosyn for antibiotics. No acute events overnight. PHYSICAL EXAMINATION: GENERAL: The patient is lying in bed, no acute distress. VITAL SIGNS: Temperature of 98.2, pulse of 92, blood pressure of 126/70, respiratory rate of 18, and oxygen 98% on room air. HEENT: Atraumatic and normocephalic. PERRLA. Extraocular muscles intact. NECK: Supple. No JVD. No adenopathy noted. LUNGS: Clear to auscultation. No adventitious sounds. HEART: S1 and S2. Normal rate and rhythm. No murmurs, rubs, or gallops. ABDOMEN: Soft, nontender, and nondistended. Bowel sounds present. EXTREMITIES: No clubbing. No cyanosis. Peripheral pulses are 2+ felt bilaterally. NEURO: The patient is alert and oriented to person and place. Speech is fluent without any errors. Cranial nerves II through XII are intact. Motor exam; moves all extremities equally. Toes are downgoing bilaterally. Sensory exam; light touch, pinprick, proprioception, and vibration are intact. DTRs are 2+ throughout. Coordination: [id number] is intact. No dysmetria noted. Gait is deferred for now. LABORATORY DATA: Sodium is 141, potassium 3.9, chloride 104, carbon dioxide 30, BUN of 19, creatinine 0.7, and random glucose 99. IMPRESSION: Syncope is most likely vasovagal type in nature rather than seizure at this time. RECOMMENDATIONS: 1. Fluid hydration. 2. Continue treatment with antibiotics in regards to multifocal pneumonia. 3. Avoid any opioid therapy. 4. Acute blood pressure in 120's to 130's in systolic and diastolic 70 to 80's. 5. Continue psychiatric management. Brenton Varghese MD
[2018-11-16 16:47] VITALS: RESP 20; TEMP 98.2
--- NOTE | 2018-11-16 19:21 | PN ---
DATE: 11/16/2018 SUBJECTIVE: The patient is 43-year-old female with history of bipolar disorder, history of PTSD, history of substance abuse. The patient claimed to be sober for the past two months. The patient showed up for her scheduled ECT procedure on 11/15/2018, but prior to procedure, the patient went to respiratory distress, lost her consciousness and needed to be intubated, successfully extubated. Right after procedure, the patient was seen by medical team and this senior mortgage underwriter. The patient was offered admission to the medical side, as well as evaluation in the emergency room, but the patient refused to stay in the hospital, was discharged against medical advice. The patient promised to come back to the hospital, which patient did and the patient was admitted to the medical side and this senior mortgage underwriter was involved into the patient's care due to history of mental illness as well as medication management and the patient is under ECT treatment. The patient was seen and examined today. The patient presented to be alert and oriented. The patient was apologetic about discharging her against medical advice. This senior mortgage underwriter again educated the patient about risk of such behavior. The patient verbalized understanding. Medication list was obtained from the patient's pharmacy, phone number [phone]. Trazodone 100 mg 4pills at the nighttime filled 09/22/18 prescriber #120 Paxil 40mg 1 tab at hs filled 09/22/18 prescriber #30 Seroquel 50mg 1tab at hs filled 09/22/[address] Damon Seroquel 25mg 1tab hs filled 09/22/18 prescriber Hydroxyzyne 50mg po q8hrs prn anxiety filled 09/22/18 prescriber Percocet 10/325 one tab po q8hrs max 3 tabs a day #63, prescriber Robert Lance (21 days supply) Tramadol 50mg po bid #14 #14 (7days suply) Percocet 10/325 po tid, max 3 pills a day #21 (7days supply) The patient reported that she is on Xanax 2 mg twice a day which was not confirmed. Medication list will be filed into the patient's chart on the medical side. The patient reported that she feels better. The patient denied any thoughts of harming herself or others. Reports that her anxiety seems to be under control. The patient denied hearing voices and denied seeing things. OBJECTIVE: VITAL SIGNS: Reviewed. Temperature 98.2, pulse is 92, blood pressure 126/70, respirations 18, oxygen saturation is 98%. MEDICATIONS: Reviewed. Xanax was started by medical team, clotrimazole, doxycycline, Prozac 20 mg daily was started by medical team. The patient is on Percocet by medical team, Zosyn by medical team. The patient is on MiraLax. Trazodone was discontinued because it was started at higher dose of 400 mg which was recently adjusted to 100 mg at the nighttime. The patient is on vancomycin, Ambien was started by medical team. LABORATORY DATA: Labs reviewed. White blood cells going down. Urinalysis reviewed. Toxicology positive for opioids and benzodiazepines. Serology reviewed. Microbiology reviewed. Sputum is pending. MENTAL STATUS EXAM: The patient presented with improved personal hygiene. Appears to be emotional, the patient could be smiling 1 minute, another minute the patient will be crying. Mood described as feeling better. Affect was expanded. Thought process at times circumstantial. Thought content, the patient denied visual, auditory, tactile hallucinations. Denied paranoid ideations. The patient does not present to be psychotic. Insight and judgment seems to be improving. Impulses are well controlled. The patient adamantly denied thoughts of harming herself or others. Denied intent or plan. IMPRESSION: As per history, bipolar disorder, post traumatic stress disorder, generalized anxiety disorder, history of cocaine abuse and dependence in remission for past 2 months. The patient's Xanax was not confirmed by the patient's pharmacy. PLAN: Medication management. The patient needs to stay in the medical side and the patient is on antibiotics right now. This senior mortgage underwriter resumed Prozac, trazodone was decreased to 100 mg. Over the weekend, the patient will be seen by Dr. Puentes, will follow up and advise accordingly. Should you have any questions give me a call back. Kaitlyn Damon MD [facility] # [phone] AUTUMN
[2018-11-16 22:50] VITALS: BP 121/82; PULSE 89; O2SAT 94
[2018-11-17] MEDS: Oxycodone/Acetaminophen 10/325 mg Tab PO PRN (00:36)
--- NOTE | 2018-11-17 01:14 | CP.PCM.PCO ---
<Xavier Mann - Last Filed: 11/17/18 01:10> Addendum Addendum: 11/17/18 01:10 Pt signed out AMA, did not want to take her nightime medications at separate time, wanted 4 at once Pt says she will f/u with her mapping engineer tmrw morning <Angie Deluna - Last Filed: 11/17/18 06:22> Attending/Attestation - Attestation I have personally seen and examined this patient.: No I have fully participated in the care of the patient.: No I have reviewed all pertinent clinical information: No
--- NOTE | 2018-11-20 23:23 | DS ---
BRIEF HISTORY: This is a 43-year-old female with history of depression, bipolar disorder, and substance abuse who was having ECT treatment by Dr. Sahni, the psychiatrist, when apparently she had respiratory distress and she was transferred to the emergency room and admitted for a possible aspiration pneumonia. The patient admitted to having a fever the previous night and cough and congestion. Her heart rate was 104. White count was 24,800. She was admitted to the general medical floor. HOSPITAL COURSE: The patient was seen by Infectious Disease, started on IV antibiotics. Consult was also placed for Neurology as the patient had possible syncopal type episode. Neurology believed her syncope most likely to be vasovagal type in nature. CT chest, abdomen and pelvis was done, which showed patchy nodular ground-glass opacities within the mid to lower lung zone suspected to reflect multifocal pneumonia. The patient's IV site came out and the patient became very upset. She was asking to leave, however, she was advised that she should continue the medications, the IV antibiotics and that she could have possible respiratory distress or even if she was to sign out AMA. The patient agreed to stay, however, in the middle of the night the patient was upset that she could not get all of her medications at one time and signed out AMA. DISCHARGE DIAGNOSES: Multifocal pneumonia, history of substance abuse, depression and bipolar disorder. FOLLOWUP: The patient said that she would follow up with her director of nursing the next day. She was advised against signing out AMA. Karen Martinez MD [facility]
== END 2018-11-17 02:30 | disposition left against medical advice (07) | DRG 871 ==
LOC: ED 15:37 → ERH 18:13 → 5RSO 20:38
PROVIDERS: ADMIT Internal Medicine; ATTEND Internal Medicine
DX: A41.9 Sepsis, unspecified organism (principal); J18.9 Pneumonia, unspecified organism; F19.20 Other psychoactive substance dependence, uncomplicated; J32.9 Chronic sinusitis, unspecified; F41.9 Anxiety disorder, unspecified; F31.9 Bipolar disorder, unspecified; F41.1 Generalized anxiety disorder; F43.10 Post-traumatic stress disorder, unspecified; R55 Syncope and collapse; F14.21 Cocaine dependence, in remission; B95.62 Methicillin resistant Staphylococcus aureus infection as the cause of diseases classified elsewhere; Z87.442 Personal history of urinary calculi; Z87.891 Personal history of nicotine dependence